=== PATIENT | female | born 1945 | race African-American/Black ===

== ENCOUNTER 2017-04-17 16:09 | Emergency (ER) | payer MEDICARE, MEDICAID ==
[2017-04-17 16:57] LABS: #Basophils 0.1 thou/uL (0.0-0.2); #Eosinphils 0.4 thou/uL (0.0-0.7); #Lymphocytes 2.7 thou/uL (1.20-3.40); #Monocytes 0.6 thou/uL (0.11-0.59); #Neutrophils 2.7 thou/uL (1.40-6.50); %Basophils 1.3 % (0.0-1.0); %Lymphocytes 41.4 % (21.0-51.0); %Monocytes 9.5 % (0.0-10.0); %Neutrophils 41.8 % (42.0-75.0); Hemoglobin 12.2 g/dL (12.0-16.0); Mean Corpuscular HGB CONC 31.7 g/dL (32.0-36.0); Mean Corpuscular Hemoglobin 29.4 pg (27.0-31.0); Mean Corpuscular Volume 92.9 fl (81.0-99.0); Mean Platelet Volume 9.3 fL (7.4-10.4); Platelet Count 198 thou/uL (130-400); Red Blood Cell (RBC) Count 4.13 mill/uL (4.20-5.40); White Blood Cell (WBC) Count 6.5 thou/uL (4.8-10.8)
[2017-04-17 17:11] LABS: ALT (SGPT) 30 U/L (8-55); AST (SGOT) 34 U/L (5-34); Albumin 3.9 g/dL (3.4-4.8); Alkaline Phosphatase 90 U/L (40-150); Anion Gap 17 mmol/L (10-20); BUN (Urea Nitrogen) 12 mg/dL (9.8-20.1); Bilirubin, Total 0.2 mg/dL (0.2-1.2); CK (CPK) 133 U/L (29-168); Calc. Creatinine Clearance 0 mL/min (70-130); Calcium 9.9 mg/dL (7.8-10.44); Carbon Dioxide 23 mmol/L (23-31); Chloride 107 mmol/L (98-107); Estimated GFR-MDRD 54; Glucose 105 mg/dL (83-110); Potassium 4.6 mmol/L (3.5-5.1); Protein, Total 7.9 g/dL (6.0-8.3); Sodium 142 mmol/L (136-145)
[2017-04-17 17:16] LABS: CKMB 0.7 ng/mL (0-6.6); Troponin I 0.027 ng/mL (< 0.028)
--- NOTE | 2017-04-17 17:34 | RAD ---
PORTABLE CHEST 1 VIEW: Date: 04/17/17 Time: 1701 hours HISTORY: Dyspnea, cough. FINDINGS/IMPRESSION: Comparison made with exam of 10/04/16. The heart is enlarged. There is haziness in the left lateral lung base which may be either due to jaron hnical factors or pathology. No pneumothoraces or corey pulmonary edema seen. No right-sided pleural effusions are identified. POS: [facility]
== END 2017-04-17 21:00 | disposition home or self-care (01) ==
LOC: ERS 16:09
DX: J10.1 Influenza due to other identified influenza virus with other respiratory manifestations (principal); E03.9 Hypothyroidism, unspecified; K21.9 Gastro-esophageal reflux disease without esophagitis; I10 Essential (primary) hypertension; J45.909 Unspecified asthma, uncomplicated; E66.9 Obesity, unspecified; F32.9 Major depressive disorder, single episode, unspecified; Z86.73 Personal history of transient ischemic attack (TIA), and cerebral infarction without residual deficits; Z86.718 Personal history of other venous thrombosis and embolism; Z87.891 Personal history of nicotine dependence
CPT/HCPCS: 36415; 71045; 80053; 82553; 83880; 84484; 85025; 87040; 93005; 94640; 94760; J7620

== ENCOUNTER 2017-08-11 14:21 | Emergency (ER) | payer MEDICAID, MEDICARE ==
[2017-08-11 15:18] LABS: Bilirubin Negative (Negative); Blood, Urine Negative (Negative); Clarity CLEAR (Clear); Glucose, Urine (Dipstick) Negative (Negative); Leukocyte Small (Negative); Nitrite Negative (Negative); Protein, Urine (Dipstick) Negative (Neg-Trace); Specific Gravity, Urine 1.017 (1.002-1.036); pH, Urine 6.5 (5.0-9.0)
[2017-08-11 15:20] LABS: Bacteria/HPF None Seen HPF (None Seen); Hyaline Casts/LPF 0-3 HYALINE CAST LPF (0-3 Hyaline); Pathc Cast-AUWi Flag 0.58 (0-2.49); RBC/HPF 0-3 HPF (0-3); Squamous Epithelial 0-3 HPF (0-3); WBC/HPF 0-3 HPF (0-3)
[2017-08-11 15:28] LABS: #Basophils 0.1 thou/uL (0.0-0.2); #Eosinphils 0.5 thou/uL (0.0-0.7); #Lymphocytes 3.9 thou/uL (1.20-3.40); #Monocytes 0.5 thou/uL (0.11-0.59); #Neutrophils 8.6 thou/uL (1.40-6.50); %Basophils 0.5 % (0.0-1.0); %Lymphocytes 28.6 % (21.0-51.0); %Monocytes 3.9 % (0.0-10.0); Hemoglobin 12.2 g/dL (12.0-16.0); Mean Corpuscular HGB CONC 32.5 g/dL (32.0-36.0); Mean Corpuscular Hemoglobin 29.4 pg (27.0-31.0); Mean Corpuscular Volume 90.4 fl (81.0-99.0); Mean Platelet Volume 9.1 fL (7.4-10.4); Platelet Count 223 thou/uL (130-400); RBC Distribution Width 14.6 % (11.5-14.5); Red Blood Cell (RBC) Count 4.15 mill/uL (4.20-5.40); White Blood Cell (WBC) Count 13.7 thou/uL (4.8-10.8)
[2017-08-11 15:51] LABS: ALT (SGPT) 13 U/L (8-55); AST (SGOT) 14 U/L (5-34); Albumin 3.9 g/dL (3.4-4.8); Alkaline Phosphatase 77 U/L (40-150); Anion Gap 10 mmol/L (10-20); BUN (Urea Nitrogen) 18 mg/dL (9.8-20.1); Bilirubin, Total 0.3 mg/dL (0.2-1.2); Calc. Creatinine Clearance 0 mL/min (70-130); Calcium 9.9 mg/dL (7.8-10.44); Carbon Dioxide 24 mmol/L (23-31); Chloride 107 mmol/L (98-107); Estimated GFR-MDRD 63; Globulin 3.9 g/dL (2.4-3.5); Glucose 123 mg/dL (83-110); Lipase 12 U/L (8-78); Protein, Total 7.8 g/dL (6.0-8.3); Sodium 137 mmol/L (136-145)
--- NOTE | 2017-08-11 16:49 | RAD ---
UPRIGHT PORTABLE CHEST ONE VIEW: HISTORY: A 72-year-old female with a history of dysuria, bodyaches, pain with urination, fever, and chills. COMPARISON: 04/17/2017 FINDINGS: Minimal cardiomegaly. Mild bilateral vascular congestion. Persistent probably pleural opacity in th e left lung base region, stable. No new process. IMPRESSION: Persistent abnormal pleural opacity in the left base. Mild bilateral vascular congestion. Minimal c ardiomegaly. Stable appearance from prior study. No new process. POS: [facility]
== END 2017-08-11 17:00 | disposition home or self-care (01) ==
LOC: ERS 14:21
DX: R30.0 Dysuria (principal); R31.9 Hematuria, unspecified; I25.10 Atherosclerotic heart disease of native coronary artery without angina pectoris; E03.9 Hypothyroidism, unspecified; K21.9 Gastro-esophageal reflux disease without esophagitis; I10 Essential (primary) hypertension; J44.9 Chronic obstructive pulmonary disease, unspecified; E66.9 Obesity, unspecified; F32.9 Major depressive disorder, single episode, unspecified; Z87.891 Personal history of nicotine dependence; Z79.02 Long term (current) use of antithrombotics/antiplatelets; Z86.73 Personal history of transient ischemic attack (TIA), and cerebral infarction without residual deficits; Z79.82 Long term (current) use of aspirin; Z79.899 Other long term (current) drug therapy
CPT/HCPCS: 36415; 71045; 80053; 81003; 81015; 83690; 85025

== ENCOUNTER 2018-07-15 14:53 | Observation (INO) | payer MEDICARE, MEDICAID ==
--- NOTE | 2018-07-15 16:33 | RAD ---
Exam: Chest one view HISTORY:Chest pain Comparison: None FINDINGS: Lungs: Added density at the inferior left chest Cardiac silhouette:Enlarged cardiac silhouette Pulmonary vessels: Mild engorgement Pleural Spaces: Obscuration of left lateral costophrenic sulcus Pneumothorax: None Osseous abnormalities: None of acuity. IMPRESSION: Added density at the inferior left chest. This could relate to pericardial fat pad adjace nt enlarged cardiac silhouette, although the possibility of underlying pleural and/or peripheral opac ity is not excluded. Recommend follow-up 2 view chest. CHF.
[2018-07-15 16:39] LABS: #Basophils 0.1 thou/uL (0.0-0.2); #Eosinphils 0.4 thou/uL (0.0-0.7); #Lymphocytes 3.4 thou/uL (1.20-3.40); #Monocytes 0.5 thou/uL (0.11-0.59); #Neutrophils 7.8 thou/uL (1.40-6.50); %Basophils 0.6 % (0.0-1.0); %Eosinophils 3.5 % (0.0-10.0); %Lymphocytes 27.8 % (21.0-51.0); %Monocytes 4.3 % (0.0-10.0); %Neutrophils 63.8 % (42.0-75.0); Hemoglobin 11.8 g/dL (12.0-16.0); Mean Corpuscular HGB CONC 32.2 g/dL (32.0-36.0); Mean Corpuscular Hemoglobin 29.3 pg (27.0-31.0); Mean Corpuscular Volume 90.7 fL (78.0-98.0); Mean Platelet Volume 9.7 fL (7.4-10.4); Platelet Count 228 thou/uL (130-400); RBC Distribution Width 14.9 % (11.5-14.5); Red Blood Cell (RBC) Count 4.05 mill/uL (4.20-5.40); White Blood Cell (WBC) Count 12.3 thou/uL (4.8-10.8)
[2018-07-15 16:59] LABS: ALT (SGPT) 12 U/L (8-55); AST (SGOT) 15 U/L (5-34); Alkaline Phosphatase 75 U/L (40-150); Anion Gap 13 mmol/L (10-20); BUN (Urea Nitrogen) 21 mg/dL (9.8-20.1); Bilirubin, Total 0.3 mg/dL (0.2-1.2); CK (CPK) 69 U/L (29-168); Calc. Creatinine Clearance 0 mL/min (70-130); Calcium 9.7 mg/dL (7.8-10.44); Carbon Dioxide 27 mmol/L (23-31); Chloride 107 mmol/L (98-107); Estimated GFR-MDRD 52; Globulin 3.2 g/dL (2.4-3.5); Glucose 118 mg/dL (83-110); Lipase 32 U/L (8-78); Potassium 4.7 mmol/L (3.5-5.1); Protein, Total 7.2 g/dL (6.0-8.3); Sodium 142 mmol/L (136-145)
[2018-07-15] MEDS ORDERED: Nitroglycerin 2% Ointment 1 INCH/1 GM Packet ONE (19:39)
[2018-07-15] MEDS ORDERED: Aspirin Chewable 81 MG TAB ONE (19:39)
[2018-07-15] MEDS ORDERED: cefTRIAXone\\ROCEPHIN 1 GM VIAL ONE (19:39)
[2018-07-15] MEDS ORDERED: Azithromycin 500 MG VIAL ONE (19:39)
[2018-07-15 20:03] LABS: Troponin I 0.012 ng/mL (< 0.028)
[2018-07-15] MEDS ORDERED: Terazosin HCl 5 MG CAP PO SCH (22:30)
[2018-07-15] MEDS ORDERED: Atorvastatin Calcium 20 MG TAB PO SCH (22:30)
[2018-07-15] MEDS ORDERED: busPIRone HCl 5 MG TAB PO SCH (22:30)
[2018-07-15] MEDS ORDERED: Acetaminophen/Codeine 30-300mg Tablet PO PRN (22:30)
[2018-07-15] MEDS ORDERED: Gabapentin 300 MG CAP PO SCH (22:30)
[2018-07-15] MEDS: Acetaminophen/Codeine 30-300mg Tablet PO PRN (22:30)
[2018-07-15] MEDS ORDERED: Nitroglycerin 0.4 MG TAB 1 EACH SL PRN (22:31)
[2018-07-15] MEDS: ALPRAZolam 0.5 MG TAB PO PRN (22:32)
[2018-07-15 22:44] LABS: Troponin I Less than 0.010 ng/mL (< 0.028)
--- NOTE | 2018-07-16 02:30 | HP ---
CHIEF COMPLAINT ON ADMISSION: Chest pain with possible pneumonia. HISTORY OF PRESENT ILLNESS: The patient is a 73-year-old female who states that 3 days prior to admission, she was exposed to a lot of bad weather, moisture and that is when she began to cough and have a lot of phlegm, congestion, she broke out sweats at that time. She also noticed that she was having some chest pain and will get worse with coughing as well. Over the next several days, this coughing persisted and on the day of admission, her pain had intensified is left-sided. It does not radiate up into her neck or her arms, it is worse with movement and coughing. She is not short winded. There is no nausea or vomiting or diaphoresis associated with that. Due to her multiple risk factors, she is being placed in the hospital for further evaluation. She has had cardiac evaluations in the past, limited mainly to echocardiograms which have shown good ejection fractions. The last was a transthoracic echocardiogram read by Dr. Aguero in 2014 that showed an ejection fraction of 50% to 55% with grade 2/3 diastolic dysfunction, bilateral atrial enlargement with mild MR and TR. She is to be placed in a medical bed in telemetry. We will re-evaluate her chest disease with repeat chest x-rays, repeat echocardiogram, serial cardiac enzymes and depending on her response to treatment, pursue further workup. PAST MEDICAL HISTORY: Significant for hypothyroidism; hypertension; history of DVTs, on anticoagulation; COPD; asthma; coronary artery disease; severe spinal stenosis; prior CVA with history of multiple TIAs; severe osteoarthritis, bilateral knees; gastroesophageal reflux disease; anxiety disorder; hyperlipidemia; HSV; and history of angioedema, on JAVI inhibitors. PAST SURGICAL HISTORY: Includes IVC filter placed via the right groin, bilateral tubal ligation, pelvic sling and mesh placement, carpal tunnel surgery bilaterally, and cholecystectomy. FAMILY HISTORY: Sister has type 2 diabetes. Her siblings all have hypertension. SOCIAL HISTORY: She is a former occasional smoker. Does not drink alcohol or use illicit drugs. She is , with 3 children. ALLERGIES: ALLERGIES ARE TO AMOXICILLIN, BENADRYL, COMPAZINE, PHENERGAN, AND JAVI INHIBITORS. REVIEW OF SYSTEMS: GENERAL: Has malaise, fever, chills, weakness. HEENT: Denies drainage from ears, nose, or throat. CHEST: Has shortness of breath with cough. HEART: Significant for pain in the cardiovascular area, but denies palpitations. GI: Denies nausea, vomiting, or diarrhea. : Denies dysuria, frequency, blood in urine or stool. MUSCULOSKELETAL: Has severe arthritis in both knees and shoulders. SKIN: Shows no new rashes or lesions. NEUROLOGIC: Significant for anxiety, but otherwise no hallucinations or delusions. She is having some paresthesias in the hands as she feels her carpal tunnel is returning. MEDICATIONS: Medications on admission are not available and will have to be reviewed in place from my office records. She does not know her medications, specifically. PHYSICAL EXAMINATION: VITAL SIGNS: At the time of admission, she is over 300 pounds. Temperature 98.5, pulse 83, respirations 23, blood pressure 150/82, O2 saturation 96% on room air with a pain of 8/10. GENERAL: This is a morbidly obese, alert, cooperative female, in no acute distress. HEENT: Normocephalic, atraumatic. Pupils with diminished reactivity to light bilaterally at 2-3 mm. Arcus senilis bilaterally. TMs, nares, pharynx are clear. NECK: Supple. Trachea midline. CHEST: With diminished breath sounds on the far left, but no acute findings. HEART: Regular rate and rhythm. BREASTS: Deferred. ABDOMEN: Obese, unable to appreciate organomegaly. : Deferred. EXTREMITIES: With mild 2 to 3+ edema bilaterally in the lower extremities. Tenderness and heat in both knees. Shoulders with painful and diminished range of motion bilaterally. SKIN: Without acute rashes or lesions. NEUROLOGIC: Cranial nerves are intact. Mental status is nonfocal and at baseline. Unable to test gait and cerebral function at this time. LABORATORY DATA: Lab work thus far shows WBCs at 12.3, hemoglobin 11.8, hematocrit 36.7, platelets at 228, unremarkable diff. Sodium 142, potassium 4.7, chloride 107, CO2 27, BUN 21, creatinine at 1.22 with GFR 51, glucose 118. Total bilirubin 0.3. Liver functions unremarkable. Chest x-ray shows possible effusion or fat pad in the left lower lobe. ASSESSMENT: Chest pain, possible pneumonia, multiple risk factors. PLAN: Plan will be to observe the patient to rule out cardiac problems. Repeat her chest x-ray and continue antibiotics in the interim and serially re-evaluate her. Job ID: [id number]
[2018-07-16 05:18] LABS: Hemoglobin 10.7 g/dL (12.0-16.0)
[2018-07-16 05:26] LABS: Hemoglobin A1c 4.7 % (4.0-6.0)
[2018-07-16] MEDS: Levothyroxine 150 MCG TAB PO SCH (05:59)
[2018-07-16] MEDS: Budesonide 0.5 MG/2 ML NEB INH SCH ×2 (06:25→18:40)
[2018-07-16] MEDS: Aspirin Chewable 81 MG TAB PO SCH (07:39)
[2018-07-16] MEDS: Clopidogrel Bisulfate 75 MG TAB PO SCH (07:39)
[2018-07-16] MEDS: Ezetimibe 10 MG TAB PO SCH (07:39)
[2018-07-16] MEDS: Furosemide 40 MG TAB PO SCH (07:39)
[2018-07-16] MEDS: Acetaminophen/Codeine 30-300mg Tablet PO PRN ×3 (07:40→20:28)
[2018-07-16] MEDS: Gabapentin 300 MG CAP PO SCH ×3 (07:40→20:28)
[2018-07-16] MEDS: busPIRone HCl 5 MG TAB PO SCH ×3 (07:40→20:45)
[2018-07-16] MEDS: Polyethylene Glycol 3350 17 GM Packet PO SCH (07:41)
--- NOTE | 2018-07-16 08:36 | RAD ---
EXAM: Two views chest PROVIDED CLINICAL HISTORY: Pneumonia COMPARISON: 10/04/2016 FINDINGS: Cardiac and mediastinal silhouette appears within normal limits. There is atelectasis versus scarring in the region of the lingula similar to prior study. Calcified granuloma is again seen at the left l becky base. Lungs otherwise remain clear. No pleural fluid or pneumothorax apparent. Degenerative gustafson es are again seen in the spine. IVC filter is partially visualized on the lateral view. IMPRESSION: Stable chest with chronic findings at left lung base. No acute cardiopulmonary process is identified.
[2018-07-16] MEDS ORDERED: Losartan 25 MG TAB PO SCH (09:00)
[2018-07-16] MEDS: ALPRAZolam 0.5 MG TAB PO PRN (09:06)
--- NOTE | 2018-07-16 10:44 | NM ---
EXAM: NM Cardiac Stress W EF WF PROVIDED CLINICAL HISTORY: Chest pain COMPARISON: None FINDINGS: 31 mCi technetium 99m labeled sestamibi IV stress Evaluation is limited by patient body habitus. There is no significant focal area of abnormal radiotr acer accumulation within the left ventricular myocardium to suggest ischemia. Gated dated demonstrate normal myocardial wall motion and thickening with calculated LVEF of 71%. IMPRESSION: No definite scintigraphic evidence for ischemia.
[2018-07-16] MEDS ORDERED: Regadenoson 0.4 MG/5 ML SYRINGE ONE (11:39)
[2018-07-16] MEDS: cefTRIAXone\\ROCEPHIN 1 GM in Sodium Chloride 0.9% 100 ML IVPB SCH (17:32)
[2018-07-16] MEDS: Atorvastatin Calcium 20 MG TAB PO SCH (20:28)
[2018-07-16] MEDS: Terazosin HCl 5 MG CAP PO SCH (20:30)
[2018-07-17] MEDS: Levothyroxine 150 MCG TAB PO SCH (06:00)
[2018-07-17] MEDS: Acetaminophen/Codeine 30-300mg Tablet PO PRN ×2 (08:04→14:30)
[2018-07-17] MEDS: Budesonide 0.5 MG/2 ML NEB INH SCH ×2 (08:13→18:30)
[2018-07-17 09:06] LABS: #Basophils 0.1 thou/uL (0.0-0.2); #Eosinphils 0.4 thou/uL (0.0-0.7); #Lymphocytes 3.8 thou/uL (1.20-3.40); #Monocytes 0.7 thou/uL (0.11-0.59); #Neutrophils 7.2 thou/uL (1.40-6.50); %Basophils 0.5 % (0.0-1.0); %Eosinophils 3.4 % (0.0-10.0); %Lymphocytes 31.2 % (21.0-51.0); %Monocytes 5.6 % (0.0-10.0); %Neutrophils 59.2 % (42.0-75.0); Hemoglobin 11.4 g/dL (12.0-16.0); Mean Corpuscular HGB CONC 31.5 g/dL (32.0-36.0); Mean Corpuscular Hemoglobin 28.5 pg (27.0-31.0); Mean Corpuscular Volume 90.5 fL (78.0-98.0); Mean Platelet Volume 9.4 fL (7.4-10.4); Platelet Count 204 thou/uL (130-400); RBC Distribution Width 14.7 % (11.5-14.5); White Blood Cell (WBC) Count 12.2 thou/uL (4.8-10.8)
[2018-07-17] MEDS: Gabapentin 300 MG CAP PO SCH ×3 (09:12→21:16)
[2018-07-17] MEDS: busPIRone HCl 5 MG TAB PO SCH ×3 (09:12→21:16)
[2018-07-17] MEDS: Losartan 25 MG TAB PO SCH (09:13)
[2018-07-17] MEDS: Clopidogrel Bisulfate 75 MG TAB PO SCH (09:13)
[2018-07-17] MEDS: Furosemide 40 MG TAB PO SCH (09:14)
[2018-07-17] MEDS: Aspirin Chewable 81 MG TAB PO SCH (09:14)
[2018-07-17] MEDS: Ezetimibe 10 MG TAB PO SCH (09:14)
[2018-07-17] MEDS: Polyethylene Glycol 3350 17 GM Packet PO SCH (09:15)
[2018-07-17 09:22] LABS: Anion Gap 14 mmol/L (10-20); BUN (Urea Nitrogen) 20 mg/dL (9.8-20.1); Calc. Creatinine Clearance 109 mL/min (70-130); Calcium 9.5 mg/dL (7.8-10.44); Carbon Dioxide 23 mmol/L (23-31); Chloride 107 mmol/L (98-107); Estimated GFR-MDRD 62; Glucose 94 mg/dL (83-110); Potassium 3.7 mmol/L (3.5-5.1); Sodium 140 mmol/L (136-145)
[2018-07-17] MEDS: cefTRIAXone\\ROCEPHIN 1 GM in Sodium Chloride 0.9% 100 ML IVPB SCH (17:16)
[2018-07-17] MEDS: Terazosin HCl 5 MG CAP PO SCH (21:16)
[2018-07-17] MEDS: Atorvastatin Calcium 20 MG TAB PO SCH (21:16)
[2018-07-18] MEDS: Levothyroxine 150 MCG TAB PO SCH (05:53)
[2018-07-18] MEDS: Budesonide 0.5 MG/2 ML NEB INH SCH (06:18)
[2018-07-18 08:04] VITALS: BP 143/82; TEMP 98.1
[2018-07-18] MEDS: Losartan 25 MG TAB PO SCH (09:58)
[2018-07-18] MEDS: Clopidogrel Bisulfate 75 MG TAB PO SCH (09:59)
[2018-07-18] MEDS: Gabapentin 300 MG CAP PO SCH (09:59)
[2018-07-18] MEDS: Aspirin Chewable 81 MG TAB PO SCH (09:59)
[2018-07-18] MEDS: Ezetimibe 10 MG TAB PO SCH (09:59)
[2018-07-18] MEDS: Acetaminophen/Codeine 30-300mg Tablet PO PRN (10:05)
[2018-07-18] MEDS: Polyethylene Glycol 3350 17 GM Packet PO SCH (10:09)
[2018-07-18] MEDS: Furosemide 40 MG TAB PO SCH (10:09)
[2018-07-18] MEDS: busPIRone HCl 5 MG TAB PO SCH (10:09)
--- NOTE | 2018-07-19 13:54 | EKG ---
Test Reason : Blood Pressure : / mmHG Vent. Rate : 074 BPM Atrial Rate : 074 BPM P-R Int : 164 ms QRS Dur : 084 ms QT Int : 388 ms P-R-T Axes : 029 -08 056 degrees QTc Int : 430 ms Normal sinus rhythm Normal ECG Confirmed by WENDY CONNELL DO ([id number]), publishing editor CORNELL BAUER ([id number]) on 07/19/2018 1:53:54 PM Referred By: Confirmed By:WENDY CONNELL DO
== END 2018-07-18 11:23 | disposition home or self-care (01) ==
LOC: ERS 14:53 → 2SW 21:14
PROVIDERS: ADMIT Specialist; ATTEND Specialist
DX: R07.89 Other chest pain (principal); E03.9 Hypothyroidism, unspecified; I10 Essential (primary) hypertension; J44.9 Chronic obstructive pulmonary disease, unspecified; I25.10 Atherosclerotic heart disease of native coronary artery without angina pectoris; M48.00 Spinal stenosis, site unspecified; M17.0 Bilateral primary osteoarthritis of knee; K21.9 Gastro-esophageal reflux disease without esophagitis; F41.9 Anxiety disorder, unspecified; E78.5 Hyperlipidemia, unspecified; Z86.73 Personal history of transient ischemic attack (TIA), and cerebral infarction without residual deficits; Z86.718 Personal history of other venous thrombosis and embolism; Z87.891 Personal history of nicotine dependence; Z79.02 Long term (current) use of antithrombotics/antiplatelets; Z79.899 Other long term (current) drug therapy; Z88.0 Allergy status to penicillin; Z88.8 Allergy status to other drugs, medicaments and biological substances; Z95.820 Peripheral vascular angioplasty status with implants and grafts; Z98.890 Other specified postprocedural states
CPT/HCPCS: 71045; 71046; 78452; 80048; 80053; 80061; 82550; 83036; 83690; 83880; 84443; 84484 ×2; 85018; 85025 ×2; 87040; 87149 ×2; 87804 ×2; 93005; 93017; 93306; 94640 ×4; 96365; 96366; 96367; 96376; 99285; A9500; G0378 ×3; 36415; J0456; J0696; J1642; J2785; J3490; J7620; J7626

== ENCOUNTER 2018-09-20 13:12 | Inpatient (IN) | payer MEDICARE, MEDICAID ==
--- NOTE | 2018-09-20 13:59 | RAD ---
SINGLE VIEW OF THE CHEST: COMPARISON: 08/11/2017. HISTORY: Sore throat with cough and abdominal pain; fever. FINDINGS: A single view of the chest shows an enlarged but stable cardiomediastinal silhouette. There may be a small left pleural effusion. IMPRESSION: 1. Cardiomegaly. 2. Small left pleural effusion. POS: [facility]
[2018-09-20 15:15] LABS: Bilirubin Negative (Negative); Blood, Urine Negative (Negative); Clarity CLEAR (Clear); Glucose, Urine (Dipstick) Negative (Negative); Leukocyte Negative (Negative); Nitrite Negative (Negative); Protein, Urine (Dipstick) Negative (Neg-Trace); Specific Gravity, Urine 1.013 (1.002-1.036)
[2018-09-20 15:23] LABS: Hemoglobin 11.6 g/dL (12.0-16.0); Mean Corpuscular HGB CONC 33.5 g/dL (32.0-36.0); Mean Corpuscular Hemoglobin 30.2 pg (27.0-31.0); Mean Platelet Volume 9.6 fL (7.4-10.4); Platelet Count 188 thou/uL (130-400); RBC Distribution Width 14.7 % (11.5-14.5); Red Blood Cell (RBC) Count 3.83 mill/uL (4.20-5.40); White Blood Cell (WBC) Count 21.6 thou/uL (4.8-10.8)
[2018-09-20 15:39] LABS: Band 4 % (5-11); Lymphocytes 14 % (21-51); MDiff Complete? YES; Monocytes 6 % (0-10); Neutrophil 76 % (42-75); Platelet Morphology Comment Appears Adequate; RBC Morphology Normal
[2018-09-20 15:44] LABS: ALT (SGPT) 18 U/L (8-55); AST (SGOT) 21 U/L (5-34); Albumin 3.7 g/dL (3.4-4.8); Alkaline Phosphatase 78 U/L (40-150); Anion Gap 15 mmol/L (10-20); BUN (Urea Nitrogen) 14 mg/dL (9.8-20.1); Bilirubin, Total 0.4 mg/dL (0.2-1.2); Calc. Creatinine Clearance 0 mL/min (70-130); Calcium 9.2 mg/dL (7.8-10.44); Carbon Dioxide 23 mmol/L (23-31); Chloride 104 mmol/L (98-107); Estimated GFR-MDRD 64; Globulin 3.1 g/dL (2.4-3.5); Glucose 94 mg/dL (83-110); Potassium 4.5 mmol/L (3.5-5.1); Protein, Total 6.8 g/dL (6.0-8.3); Sodium 137 mmol/L (136-145)
[2018-09-20] MEDS ORDERED: guaiFENesin ER 600 MG TAB PO SCH (21:00)
[2018-09-20] MEDS ORDERED: Benzonatate 100 MG CAP PO PRN (21:09)
[2018-09-20] MEDS ORDERED: Sodium Chloride 0.9% 1,000 ML IV SCH (21:10)
[2018-09-20] MEDS: Acetaminophen 325 MG TAB PO PRN (22:20)
[2018-09-20] MEDS ORDERED: Azithromycin 250 MG TAB PO SCH (23:15)
[2018-09-20] MEDS: cefTRIAXone\\ROCEPHIN 1 GM VIAL IM SCH (23:20)
[2018-09-20] MEDS: Lidocaine 1% (PF) 30 ML VIAL FS SCH (23:27)
[2018-09-21 00:35] VITALS: BMI 56.5
[2018-09-21] MEDS: Acetaminophen 325 MG TAB PO PRN ×3 (02:04→20:44)
[2018-09-21] MEDS: Azithromycin 250 MG TAB PO SCH (07:55)
[2018-09-21] MEDS: Losartan 25 MG TAB PO SCH (10:27)
[2018-09-21] MEDS: NIFEdipine XL 30 MG TAB PO SCH (10:28)
[2018-09-21] MEDS: Aspirin 325 MG TAB PO SCH (10:28)
[2018-09-21] MEDS: Ezetimibe 10 MG TAB PO SCH (10:28)
[2018-09-21] MEDS: Clopidogrel Bisulfate 75 MG TAB PO SCH (10:28)
[2018-09-21] MEDS: Furosemide 40 MG TAB PO SCH (10:29)
[2018-09-21] MEDS: busPIRone HCl 5 MG TAB PO SCH ×3 (10:29→20:43)
[2018-09-21] MEDS: Allopurinol 300 MG TAB PO SCH (10:29)
[2018-09-21] MEDS: Gabapentin 300 MG CAP PO SCH ×3 (10:29→20:44)
--- NOTE | 2018-09-21 15:33 | RAD ---
PA AND LATERAL VIEWS OF THE CHEST: HISTORY: Pneumonia. FINDINGS: Comparison is made with the exam of 07/16/2018. The heart size is stable. The aorta is tortuous. Scarring in the lingula is again noted. No focal areas of consolidation, pneumothorax, corey pulmonary edema, or pleural effusions are seen. There ar e degenerative changes in the spine. IMPRESSION: No acute process. POS: [facility]
[2018-09-21] MEDS: traMADol HCl 50 MG TAB PO PRN (20:44)
[2018-09-21] MEDS: ALPRAZolam 0.5 MG TAB PO SCH (20:45)
[2018-09-21] MEDS: cefTRIAXone\\ROCEPHIN 1 GM VIAL IM SCH (23:11)
[2018-09-21] MEDS: Lidocaine 1% (PF) 30 ML VIAL FS SCH (23:12)
[2018-09-22 05:25] LABS: #Basophils 0.1 thou/uL (0.0-0.2); #Eosinphils 0.6 thou/uL (0.0-0.7); #Lymphocytes 3.2 thou/uL (1.20-3.40); #Monocytes 0.9 thou/uL (0.11-0.59); #Neutrophils 10.3 thou/uL (1.40-6.50); %Basophils 0.4 % (0.0-1.0); %Eosinophils 3.7 % (0.0-10.0); %Lymphocytes 21.2 % (21.0-51.0); %Monocytes 5.9 % (0.0-10.0); %Neutrophils 68.7 % (42.0-75.0); Hemoglobin 10.8 g/dL (12.0-16.0); Mean Corpuscular HGB CONC 30.5 g/dL (32.0-36.0); Mean Corpuscular Hemoglobin 27.7 pg (27.0-31.0); Mean Corpuscular Volume 90.8 fL (78.0-98.0); Mean Platelet Volume 9.3 fL (7.4-10.4); Platelet Count 180 thou/uL (130-400); RBC Distribution Width 14.4 % (11.5-14.5); Red Blood Cell (RBC) Count 3.89 mill/uL (4.20-5.40); White Blood Cell (WBC) Count 14.9 thou/uL (4.8-10.8)
[2018-09-22] MEDS: Levothyroxine 150 MCG TAB PO SCH (05:27)
[2018-09-22] MEDS: traMADol HCl 50 MG TAB PO PRN ×2 (05:27→17:08)
[2018-09-22] MEDS: Acetaminophen 325 MG TAB PO PRN ×2 (05:27→20:02)
[2018-09-22 05:36] LABS: Anion Gap 12 mmol/L (10-20); BUN (Urea Nitrogen) 10 mg/dL (9.8-20.1); Calc. Creatinine Clearance 131 mL/min (70-130); Calcium 9.7 mg/dL (7.8-10.44); Carbon Dioxide 26 mmol/L (23-31); Cardiac Risk 2.1 (Less than 4.5); Chloride 106 mmol/L (98-107); Cholesterol 139 mg/dl (< 200 Desired); Estimated GFR-MDRD 71; Glucose 109 mg/dL (83-110); HDL Cholesterol 67 mg/dL (>60 Neg Risk); LDL Cholesterol, Calculated 62 mg/dL; Potassium 3.4 mmol/L (3.5-5.1); Sodium 141 mmol/L (136-145); Triglycerides 49 mg/dL (Less than 150); Uric Acid 3.4 mg/dL (2.6-6.0)
[2018-09-22] MEDS: busPIRone HCl 5 MG TAB PO SCH ×4 (08:03→20:02)
[2018-09-22] MEDS: Allopurinol 300 MG TAB PO SCH (08:03)
[2018-09-22] MEDS: NIFEdipine XL 30 MG TAB PO SCH (08:03)
[2018-09-22] MEDS: Aspirin 325 MG TAB PO SCH (08:03)
[2018-09-22] MEDS: Losartan 25 MG TAB PO SCH (08:03)
[2018-09-22] MEDS: Clopidogrel Bisulfate 75 MG TAB PO SCH (08:04)
[2018-09-22] MEDS: Furosemide 40 MG TAB PO SCH (08:04)
[2018-09-22] MEDS: Ezetimibe 10 MG TAB PO SCH (08:04)
[2018-09-22] MEDS: Azithromycin 250 MG TAB PO SCH (08:04)
[2018-09-22] MEDS: Gabapentin 300 MG CAP PO SCH ×4 (08:04→20:02)
--- NOTE | 2018-09-22 08:13 | HP ---
CHIEF COMPLAINT ON ADMISSION: Left lower lobe pneumonia. HISTORY OF PRESENT ILLNESS: The patient is a 73-year-old female, who came in originally into the emergency room for a sore throat and not feeling well. During her workup, her left lower lobe effusion was noted with a white count of 21,000 and a left shift also noted. The patient had multiple attempts at establishing IV access, which met with blowing as soon as they were used, requiring the patient to resort to IM medication on a regular daily basis. PAST MEDICAL HISTORY: Previous hospitalization was on 07/15/2018 for chest pain. This was ruled out completely. She also has hypothyroidism; hypertension; history of DVTs, on anticoagulation; COPD; asthma; coronary artery disease; severe spinal stenosis; CVA with multiple TIAs; severe osteoarthritis; bilateral knee osteoarthritis; gastroesophageal reflux disease; anxiety disorder; hyperlipidemia; herpes simplex virus; angioedema, on JAVI inhibitors; and overactive bladder. PAST SURGICAL HISTORY: Includes IVC filter placed through the right groin, bilateral tubal ligations, pelvic sling and mesh placement, carpal tunnel surgery bilaterally, and cholecystectomy. FAMILY HISTORY: Significant for a sister with type 2 diabetes and her siblings all have hypertension including her son. SOCIAL HISTORY: She is a former occasional smoker. Does not drink alcohol or use illicit drugs. She is , with 3 children. ALLERGIES: TO AMOXICILLIN, BENADRYL, COMPAZINE, PHENERGAN, AND JAVI INHIBITORS. MEDICATIONS: At the time of admission include; 1. Losartan 50 mg p.o. daily. 2. Allopurinol 300 mg p.o. daily. 3. Simvastatin 40 mg at bedtime. 4. Lasix 40 mg q.a.m. 5. Potassium chloride 20 mEq daily. 6. Nifedipine 30 mg daily. 7. Zetia 10 mg at bedtime. 8. Myrbetriq 50 mg daily. 9. She also takes aspirin 325 daily. 10. Levothyroxine 150 mcg daily. 11. Buspirone 5 mg t.i.d. 12. Plavix 75 mg daily. 13. Nexium 40 mg daily. 14. Gabapentin 300 mg t.i.d. 15. For allergies, she will take Zyrtec p.r.n. REVIEW OF SYSTEMS: GENERAL/CONSTITUTIONAL: Denies fever, chills, aches, or pains. She has had a sore throat. HEENT: Complains of pain in her pharynx. No discharge from eyes, ears, nose, or throat. CHEST: Denies shortness of breath or coughing. CARDIOVASCULAR: Denies palpitations or chest pain. GASTROINTESTINAL: Denies nausea, vomiting, or diarrhea. GENITOURINARY: Denies dysuria, blood in urine or stool. MUSCULOSKELETAL: Has chronic pain in her large joints, especially both knees. SKIN: No new rashes or lesions. NEUROLOGIC: She is anxious, but denies any new areas of hypesthesia or anesthesia. PHYSICAL EXAMINATION: VITAL SIGNS: At the time of admission, blood pressure 136/84, pulse 90, respirations 18, temperature 99.9, pain scale 10/10, and O2 saturation 94% on room air. GENERAL: At that 10/10 description, she was lying comfortably in bed without any acute distress. HEENT: Normocephalic, atraumatic. Pupils are equal, round, and reactive to light. Extraocular muscles are intact. Arcus senilis bilaterally. TMs and nares are clear. Pharynx is somewhat dry with mild erythema posteriorly (strep test negative). NECK: Supple. CHEST: With faint rales in left lower lobe. HEART: Regular rate and rhythm. BREASTS: Deferred. ABDOMEN: Soft. Unable to appreciate organomegaly due to obesity. GENITOURINARY: Deferred. EXTREMITIES: Without clubbing or cyanosis. There is 1+ edema bilaterally. Range of motion is diminished due to arthritis. SKIN: No acute lesions. NEUROLOGIC: Cranial nerves are intact. Mental status is clear. Unable to test gait and cerebellar function at this time, but mental status is at baseline. LABORATORY DATA: Her lab work on admission showed WBCs 21.6, hemoglobin 11.6, and hematocrit 34.5 with platelets at 188,000. Sodium 137, potassium 4.5, chloride 104, CO2 of 23, BUN 14, creatinine 0.2 with a GFR of 64, glucose 94, lactic acid 1.6, and calcium 9.2. Liver functions normal. Troponins negative. Urinalysis is clear. IMAGING DATA: Chest x-ray, as mentioned previously, has slight infiltrate in left lower lobe, possible pleural effusion. ASSESSMENT: 1. Probable left lower lobe pneumonia. 2. Hypertension. 3. Chronic pain. 4. Extreme obesity. PLAN: 1. Plan will be to continue IM daily medications of antibiotics. 2. Repeat chest x-ray PA and lateral. 3. Continue neb treatments and serially re-evaluate the patient. Job ID: [id number]
[2018-09-22] MEDS: ALPRAZolam 0.5 MG TAB PO SCH (20:02)
[2018-09-22] MEDS: cefTRIAXone\\ROCEPHIN 1 GM VIAL IM SCH (23:01)
[2018-09-22] MEDS: Lidocaine 1% (PF) 30 ML VIAL FS SCH (23:01)
[2018-09-23] MEDS: Levothyroxine 150 MCG TAB PO SCH (05:00)
[2018-09-23 05:07] LABS: #Basophils 0.1 thou/uL (0.0-0.2); #Eosinphils 0.8 thou/uL (0.0-0.7); #Lymphocytes 3.3 thou/uL (1.20-3.40); #Monocytes 0.8 thou/uL (0.11-0.59); #Neutrophils 7.6 thou/uL (1.40-6.50); %Basophils 0.5 % (0.0-1.0); %Eosinophils 6.1 % (0.0-10.0); %Lymphocytes 26.1 % (21.0-51.0); %Monocytes 6.6 % (0.0-10.0); %Neutrophils 60.8 % (42.0-75.0); Hemoglobin 10.7 g/dL (12.0-16.0); Mean Corpuscular HGB CONC 30.5 g/dL (32.0-36.0); Mean Corpuscular Hemoglobin 27.7 pg (27.0-31.0); Mean Platelet Volume 9.1 fL (7.4-10.4); Platelet Count 192 thou/uL (130-400); RBC Distribution Width 14.4 % (11.5-14.5); Red Blood Cell (RBC) Count 3.86 mill/uL (4.20-5.40); White Blood Cell (WBC) Count 12.5 thou/uL (4.8-10.8)
[2018-09-23] MEDS: Allopurinol 300 MG TAB PO SCH (08:39)
[2018-09-23] MEDS: Clopidogrel Bisulfate 75 MG TAB PO SCH (08:39)
[2018-09-23] MEDS: Azithromycin 250 MG TAB PO SCH (08:39)
[2018-09-23] MEDS: NIFEdipine XL 30 MG TAB PO SCH (08:40)
[2018-09-23] MEDS: Ezetimibe 10 MG TAB PO SCH (08:40)
[2018-09-23] MEDS: Furosemide 40 MG TAB PO SCH (08:41)
[2018-09-23] MEDS: Losartan 25 MG TAB PO SCH (08:41)
[2018-09-23] MEDS: Aspirin 325 MG TAB PO SCH (08:41)
[2018-09-23] MEDS: Gabapentin 300 MG CAP PO SCH (08:41)
[2018-09-23] MEDS: busPIRone HCl 5 MG TAB PO SCH (08:41)
[2018-09-23] MEDS: traMADol HCl 50 MG TAB PO PRN (08:46)
[2018-09-23] MEDS: cefTRIAXone\\ROCEPHIN 1 GM VIAL IM SCH (10:11)
[2018-09-23 10:29] VITALS: BP 161/87; TEMP 97.7
--- NOTE | 2018-09-24 07:36 | PQF ---
[employer] Crystal Reports Winform ViewerANGELA THOMAS MICHAEL E MD [id number] CLINICAL DOCUMENTATION CLARIFICATION FORM: POST DISCHARGE Addendum to original discharge summary date: ____ Late entry note date: __ DATE: 09/24/2018 ATTN: DALIA DONALDSON Please exercise your independent, professional judgment in responding to the clarification form. Clinical indicators are provided on the bottom of this form for your review Please check appropriate box(s) to clarify if the following diagnosis has been ruled in or ruled out: Sepsis [ ] Ruled in diagnosis [ ] Continue to treat [ ] Resolved [ ] Ruled out diagnosis [ x] Cannot rule out diagnosis [ x ] Other diagnosis __LLL Pneumonia [ ] Unable to determine For continuity of documentation, please document condition throughout progress notes and discharge summary. Thank You. CLINICAL INDICATORS - SIGNS / SYMPTOMS / LABS Sepsis, Pneumonia, leukocytosis-ED record-pg09/20 Probable left lower lobe pneumonia-H&P, pg3. 09/21 WBC: 21.6-H&P, pg3. 09/21 Temp: 99.9-H&P, pg3. 09/21 RISK FACTORS Left lobe pneumonia-H&P, pg3. 09/21 TREATMENTS Ceftriaxone.IM-09/20 (This form is maintained as a part of the permanent medical record) 2014 [employer]. All Rights Reserved [employer] Winform Viewer Shana Douglas [ not provided] [not provided] MTDD
--- NOTE | 2018-09-27 09:55 | EKG ---
Test Reason : WEAKNESS Blood Pressure : / mmHG Vent. Rate : 079 BPM Atrial Rate : 079 BPM P-R Int : 166 ms QRS Dur : 092 ms QT Int : 390 ms P-R-T Axes : 069 097 076 degrees QTc Int : 447 ms Sinus rhythm with occasional Premature ventricular complexes Rightward axis Borderline ECG Confirmed by LUISITO MONTEIRO, PRITI ([id number]), editorial cartoonist CORNELL BAUER ([id number]) on 09/27/2018 9:54:59 AM Referred By: Confirmed By:PRITI JORGE MD
== END 2018-09-23 11:23 | disposition home health service (06) | DRG 194 ==
LOC: ERS 13:12 → T4-A 20:44
PROVIDERS: ADMIT Specialist; ATTEND Specialist
DX: J18.1 Lobar pneumonia, unspecified organism (principal); J44.0 Chronic obstructive pulmonary disease with (acute) lower respiratory infection; I25.10 Atherosclerotic heart disease of native coronary artery without angina pectoris; E03.9 Hypothyroidism, unspecified; K21.9 Gastro-esophageal reflux disease without esophagitis; I10 Essential (primary) hypertension; M17.0 Bilateral primary osteoarthritis of knee; F41.9 Anxiety disorder, unspecified; N32.81 Overactive bladder; E66.8 Other obesity; G89.29 Other chronic pain; E78.5 Hyperlipidemia, unspecified; Z86.718 Personal history of other venous thrombosis and embolism; Z86.73 Personal history of transient ischemic attack (TIA), and cerebral infarction without residual deficits; Z90.49 Acquired absence of other specified parts of digestive tract; Z98.51 Tubal ligation status; Z87.891 Personal history of nicotine dependence; Z88.1 Allergy status to other antibiotic agents; Z88.8 Allergy status to other drugs, medicaments and biological substances; Z79.01 Long term (current) use of anticoagulants
CPT/HCPCS: 36415; 51701; 71045; 71046; 80048; 80053; 80061; 81003; 83605; 84443; 84484; 84550; 85025; 87040; 87081; 87149; 87430; 93005; 94640; J0696; J3370; J7620

== ENCOUNTER 2018-12-08 19:11 | Emergency (ER) | payer MEDICARE, MEDICAID ==
[2018-12-08] MEDS ORDERED: Ondansetron ODT 4 MG TAB ONE (21:06)
[2018-12-08] MEDS ORDERED: Morphine 4 MG/ML VIAL ONE (21:06)
[2018-12-08] MEDS ORDERED: Dexamethasone 10 MG/ML VIAL ONE (21:10)
== END 2018-12-08 21:27 | disposition home or self-care (01) ==
LOC: ERS 19:11
DX: K14.1 Geographic tongue (principal); G89.29 Other chronic pain; M25.561 Pain in right knee; M25.562 Pain in left knee; I25.10 Atherosclerotic heart disease of native coronary artery without angina pectoris; E03.9 Hypothyroidism, unspecified; K21.9 Gastro-esophageal reflux disease without esophagitis; I10 Essential (primary) hypertension; J44.9 Chronic obstructive pulmonary disease, unspecified; Z86.718 Personal history of other venous thrombosis and embolism; F32.9 Major depressive disorder, single episode, unspecified; Z87.891 Personal history of nicotine dependence; Z79.82 Long term (current) use of aspirin; Z79.899 Other long term (current) drug therapy; Z86.73 Personal history of transient ischemic attack (TIA), and cerebral infarction without residual deficits
CPT/HCPCS: 96372; 99283; J1100; J2270; Q0162

== ENCOUNTER 2019-02-12 13:57 | Outpatient (CLI) | payer MEDICARE, MEDICAID ==
--- NOTE | 2019-02-12 15:10 | ULT ---
Exam: Bilateral renal ultrasound HISTORY: Renal cyst COMPARISON: 08/24/2009 FINDINGS: Limited evaluation due to bowel gas and body habitus Right kidney: Normal cortical echotexture. No hydronephrosis. Right kidney measurements: 12.1 x 5.7 x 4 point cm. Left kidney: Not appreciated due to bowel gas. Left kidney measurements: not applicable Urinary bladder: Suboptimal visualization due to bowel gas. IMPRESSION: Markedly suboptimal exam.
== END 2019-02-12 13:58 | disposition home or self-care (01) ==
LOC: BICULT 13:57
PROVIDERS: ATTEND Urology
DX: N28.1 Cyst of kidney, acquired (principal)
CPT/HCPCS: 76770

== ENCOUNTER 2020-04-27 05:35 | Inpatient (IN) | payer MEDICARE, MEDICAID ==
[2020-04-27] MEDS ORDERED: Furosemide 40 MG/4 ML VIAL ONE (05:50)
[2020-04-27 06:04] LABS: #Lymphocytes 2.7 thou/uL (1.20-3.40); #Monocytes 0.5 thou/uL (0.11-0.59); #Neutrophils 7.4 thou/uL (1.40-6.50); %Basophils 0.4 % (0.0-1.0); %Eosinophils 0.1 % (0.0-10.0); %Lymphocytes 25.4 % (21.0-51.0); %Neutrophils 69.1 % (42.0-75.0); Hemoglobin 12.9 g/dL (12.0-16.0); Mean Corpuscular HGB CONC 31.5 g/dL (32.0-36.0); Mean Corpuscular Volume 88.8 fL (78.0-98.0); Mean Platelet Volume 10.3 fL (7.4-10.4); Platelet Count 175 thou/uL (130-400); RBC Distribution Width 14.9 % (11.5-14.5); Red Blood Cell (RBC) Count 4.61 mill/uL (4.20-5.40); White Blood Cell (WBC) Count 10.7 thou/uL (4.8-10.8)
[2020-04-27 06:25] LABS: ALT (SGPT) 18 U/L (8-55); AST (SGOT) 46 U/L (5-34); Albumin 3.4 g/dL (3.4-4.8); Alkaline Phosphatase 81 U/L (40-110); Anion Gap 18 mmol/L (10-20); BUN (Urea Nitrogen) 32 mg/dL (9.8-20.1); Bilirubin, Total 0.4 mg/dL (0.2-1.2); Calc. Creatinine Clearance 0 mL/min (70-130); Calcium 8.9 mg/dL (7.8-10.44); Carbon Dioxide 21 mmol/L (23-31); Chloride 105 mmol/L (98-107); Globulin 4.4 g/dL (2.4-3.5); Glucose 123 mg/dL (83-110); Potassium 4.5 mmol/L (3.5-5.1); Protein, Total 7.8 g/dL (6.0-8.3); Sodium 139 mmol/L (136-145)
[2020-04-27] MEDS ORDERED: Aspirin 325 MG TAB ONE (06:46)
[2020-04-27 06:47] LABS: CKMB 0.7 ng/mL (0-6.6)
[2020-04-27 07:12] LABS: Bacteria/HPF 2+ HPF (None Seen); Bilirubin Negative (Negative); Blood, Urine 2+ (Negative); Clarity Turbid (Clear); Glucose, Urine (Dipstick) Normal (Negative); Ketone, Urine Negative (Negative); Leukocyte Negative Leu/uL (Negative); Nitrite Negative (Negative); Protein, Urine (Dipstick) Greater than 600 mg/dL (Neg-Trace); RBC/HPF 0-3 HPF (0-3); Specific Gravity, Urine 1.036 (1.002-1.036)
[2020-04-27 07:26] LABS: SARS-CoV-2 NAA Rapid Test DETECTED (NotDetected)
--- NOTE | 2020-04-27 07:36 | CT ---
CT chest noncontrast HISTORY: Fever. Dyspnea. FINDINGS: Patchy areas of groundglass infiltrate are present within each lung, more pronounced centra lly on the right and peripherally on the left. No lobar consolidation. Coronary vasculature not particularly engorged. Heart upper limits of normal in size. No pleural fluid or pneumothorax. Calcified granulomata are consistent with healed granulomatous dise ase. Lack of contrast limits evaluation of the soft tissues. No mediastinal adenopathy is evident. Degenerative changes of the shoulders and thoracic spine. IMPRESSION : Bilateral groundglass infiltrates. Inflammation favored over edema. While the distribution is not com pletely typical, COVID pneumonitis is likely.
[2020-04-27] MEDS ORDERED: methylPREDNISolone Sod Succ/PF 125 MG/2 ML VIAL ONE (07:38)
--- NOTE | 2020-04-27 07:51 | RAD ---
Exam: Chest one view HISTORY:Difficulty breathing. Comparison: 09/20/2018 FINDINGS: Cardiac silhouette:Cardiomegaly Aorta: Unremarkable Pulmonary vessels: Normal Costophrenic angles: Clear LUNGS: Scattered interstitial and alveolar opacities. Pneumothorax: None Osseous abnormalities: None IMPRESSION: Interstitial and alveolar opacities. Correlate for pulmonary edema versus pneumonia.
[2020-04-27 09:21] LABS: Lactic Acid 0.9 mmol/L (0.5-2.2)
[2020-04-27 09:30] LABS: Troponin I 0.041 ng/mL (< 0.028)
[2020-04-27] MEDS ORDERED: Succinylcholine 200 MG/10 ml SYRINGE FS ONE ×2 (09:58→12:25)
[2020-04-27] MEDS ORDERED: PROPOFOL 200 MG/20 ML VIAL ONE ×2 (09:58→12:25)
[2020-04-27] MEDS ORDERED: Rocuronium Bromide 10 MG/ML (10ML VIAL) ONE (12:25)
[2020-04-27 12:35] LABS: Troponin I 0.049 ng/mL (< 0.028)
[2020-04-27] MEDS ORDERED: Lorazepam 2 MG/ML VIAL ONE (12:41)
[2020-04-27] MEDS: Lorazepam 2 MG/ML VIAL SLOW IVP PRN ×3 (12:54→20:43)
[2020-04-27] MEDS ORDERED: cefTRIAXone\\ROCEPHIN 2 GM VIAL ONE (13:05)
[2020-04-27] MEDS: cefTRIAXone\\ROCEPHIN 2 GM in Sodium Chloride 0.9% 100 ML IVPB SCH (13:12)
[2020-04-27] MEDS ORDERED: Azithromycin 500 MG VIAL ONE (13:56)
[2020-04-27] MEDS: Azithromycin 500 MG in Sodium Chloride 0.9% 250 ML 250 ML IVPB SCH (14:06)
[2020-04-27] MEDS ORDERED: CeleCOXIB 100 MG CAP PO PRN (18:14)
[2020-04-27] MEDS ORDERED: HYDROcodone/Acetaminophen 10/325 mg Tablet PO PRN (18:15)
[2020-04-27] MEDS ORDERED: Methocarbamol 500 MG TAB PO PRN (18:16)
--- NOTE | 2020-04-27 19:42 | RAD ---
PORTABLE CHEST: 04/27/20 HISTORY: COVID pneumonia follow-up. COMPARISON: Earlier exam of the same day. Patient is rotated on this exam. The heart size is enlarged. Bilateral lung infiltrates are similar t o the previous exam. No definite interval change. IMPRESSION: Stable exam. POS: [facility]
[2020-04-27] MEDS: Atorvastatin Calcium 20 MG TAB PO SCH (21:28)
[2020-04-27] MEDS: NIFEdipine XL 30 MG TAB PO SCH (21:28)
[2020-04-27] MEDS: busPIRone HCl 5 MG TAB PO SCH (21:28)
[2020-04-27] MEDS: Zinc Sulfate 220 MG CAP PO SCH (21:28)
[2020-04-27] MEDS ORDERED: Sterile Water 10 ML VIAL FS PRN (21:30)
[2020-04-27] MEDS ORDERED: Ziprasidone 20 MG VIAL IM SCH (21:30)
[2020-04-27] MEDS ORDERED: Ziprasidone 20 MG VIAL IM PRN (22:30)
--- NOTE | 2020-04-27 23:49 | HP ---
CHIEF COMPLAINT: COVID pneumonia. HISTORY OF PRESENT ILLNESS: The patient is a 75-year-old female. Patient states that she began to notice shortness of breath yesterday and began to feel bad. She started to run fever. She called the EMS when she could not catch her breath. When they arrived, O2 saturation was at 88%. They gave her breathing treatment. She has also had productive green mucus with coughing. In the emergency room, she was found to be COVID positive and struggling to breathe. She was put on BiPAP and her sat then raised into the 90s. Dr. Murillo was contacted for admission. PAST MEDICAL HISTORY: Ms. Clark has multiple medical problems that put her at high risk including extreme morbid obesity, coronary artery disease, hypothyroidism, GERD, hypertension, diffuse osteoarthritis. She has had TIAs in the past, COPD, and asthma. She has had DVTs. Hyperuricemia, anxiety, overactive bladder, herpes simplex, angioedema due to JAVI inhibitors. She has had a history of severe spinal stenosis, inoperable due to inability to obtain CT and MRI because of habitus. PAST SURGICAL HISTORY: Includes bilateral carpal tunnel surgery, tubal ligation, cholecystectomy, pelvic sling surgery involving mesh, and placement of IVC filter. PAST PSYCHIATRIC HISTORY: Includes depression. SOCIAL HISTORY: She has a history of smoking in the distant past. She denies any alcohol use. She lives at home with her family. FAMILY HISTORY: Significant for hypertension and diabetes. ALLERGIES: SHE IS ALLERGIC TO PENICILLIN, BENADRYL, COMPAZINE, PROMETHAZINE, AND JAVI INHIBITORS. MEDICATIONS ON ADMISSION: Include 1. Levothyroxine 150 mcg daily. 2. Gabapentin 300 mg as needed. 3. Nexium 40 mg daily. 4. Potassium chloride 20 mEq daily. 5. Zocor 40 mg at bedtime. 6. Plavix 75 mg daily. 7. Aspirin 325 mg daily. 8. Furosemide 40 mg daily. 9. Procardia 30 mg p.o. b.i.d. 10. Buspirone 5 mg t.i.d. 11. Robaxin 750 mg t.i.d. p.r.n. muscle spasms. 12. Zetia 10 mg p.o. daily. 13. Allopurinol 300 mg daily. 14. Celecoxib 200 mg b.i.d. REVIEW OF SYSTEMS: CONSTITUTIONAL: She feels weak, short of breath even with just talking, and admits to fever. HEENT: Significant for green postnasal drip and productive phlegm. CHEST: Significant for dyspnea and cough. CARDIOVASCULAR: Denies palpitations or chest pain. GI: Denies nausea, vomiting, or diarrhea. : Denies dysuria or blood in urine or stool. MUSCULOSKELETAL: Significant for severe arthritis in both knees, but no new findings. SKIN: No new rashes or lesions. NEUROLOGICAL: Denies headaches or trouble with mentation. She is very fearful. PHYSICAL EXAMINATION: VITAL SIGNS: At the time of admission vital signs, 182/104 blood pressure, pulse 92, respirations 32, O2 saturation 100% on BiPAP. GENERAL: This is a morbidly obese female, alert, oriented, cooperative. HEENT: Normocephalic, atraumatic. Pupils are equal, round, and reactive to light. Arcus senilis bilaterally. TMs, nares, and pharynx are clear. Sclerae are clear and nonicteric. NECK: Supple. CHEST: With diffuse crackles bilaterally. HEART: Regular rate and rhythm. Tachycardic. ABDOMEN: Obese. Unable to appreciate organomegaly. EXTREMITIES: With 2+ edema bilaterally, this is chronic with feet and both knees. SKIN: No new rashes or lesions. NEUROLOGIC: Cranial nerves are intact. Mental status is anxious and fearful. Sensory exam is grossly intact. The cerebellar function and gait are untested at this time. LABORATORY DATA AND IMAGING STUDIES: Lab work on admission shows WBCs 10.7, hemoglobin 12.9, hematocrit 41.0, with platelets at 175. Her D-dimer is elevated at 1.79. Sodium is 139, potassium 4.5, chloride 105, CO2 of 21, BUN 32, creatinine 2.14, glucose 123, lactic acid 0.9. Liver functions unremarkable. Troponins slightly elevated at 0.56. BNP at 14.2. Urinalysis shows 600 protein, 2+ blood, with 7 to 10 wbc's, and she is COVID positive. Chest CT shows bilateral ground-glass infiltrates, fairly consistent with COVID pneumonitis. No pulmonary emboli noted. ASSESSMENT: 1. COVID pneumonia. 2. Hypertension. 3. Chronic severe osteoarthritis. 4. Extreme morbid obesity. 5. Generalized Anxiety Disorder with Panic Attacks 6. Dementia with Sundowning - early stages PLAN: Admit the patient for BiPAP therapy. We will also begin remdesivir and supportive therapy. We will also obtain consultation from Pulmonary and Infectious Disease. Face time with patient 45 min with total time 1 hour. Job ID: [id number] [email or web address]
[2020-04-28] MEDS: Lorazepam 2 MG/ML VIAL SLOW IVP PRN ×3 (04:03→09:37)
[2020-04-28 05:16] LABS: Anion Gap 18 mmol/L (10-20); BUN (Urea Nitrogen) 42 mg/dL (9.8-20.1); Calc. Creatinine Clearance 49 mL/min (70-130); Calcium 8.9 mg/dL (7.8-10.44); Carbon Dioxide 18 mmol/L (23-31); Chloride 107 mmol/L (98-107); Glucose 149 mg/dL (83-110); Sodium 139 mmol/L (136-145)
[2020-04-28] MEDS: Levothyroxine 150 MCG TAB PO SCH (05:17)
[2020-04-28 07:02] LABS: #Lymphocytes 1.4 thou/uL (1.20-3.40); #Monocytes 0.8 thou/uL (0.11-0.59); #Neutrophils 8.8 thou/uL (1.40-6.50); %Eosinophils 0.2 % (0.0-10.0); %Lymphocytes 12.9 % (21.0-51.0); %Monocytes 6.9 % (0.0-10.0); Hemoglobin 11.8 g/dL (12.0-16.0); Mean Corpuscular HGB CONC 30.6 g/dL (32.0-36.0); Mean Corpuscular Hemoglobin 26.9 pg (27.0-31.0); Mean Corpuscular Volume 87.9 fL (78.0-98.0); Mean Platelet Volume 10.6 fL (7.4-10.4); Platelet Count 185 thou/uL (130-400); Platelet Morphology Comment Appears Adequate; RBC Distribution Width 14.7 % (11.5-14.5)
[2020-04-28] MEDS ORDERED: Dextrose 50% Abboject 50 ML SYRINGE IVP PRN (09:00)
[2020-04-28] MEDS ORDERED: Dextrose 5% in Water 1,000 ML IV PRN (09:00)
[2020-04-28] MEDS ORDERED: cloNIDine 0.3mg/24 Hour PATCH TD SCH (09:00)
[2020-04-28] MEDS: Allopurinol 300 MG TAB PO SCH (09:21)
[2020-04-28] MEDS: Aspirin 325 MG TAB PO SCH (09:22)
[2020-04-28] MEDS: Furosemide 40 MG TAB PO SCH (09:23)
[2020-04-28] MEDS: busPIRone HCl 5 MG TAB PO SCH ×3 (09:23→20:17)
[2020-04-28] MEDS: Ezetimibe 10 MG TAB PO SCH (09:23)
[2020-04-28] MEDS: Clopidogrel Bisulfate 75 MG TAB PO SCH (09:23)
[2020-04-28] MEDS: Potassium Chloride 20 MEQ TAB PO SCH (09:24)
[2020-04-28] MEDS: Multivitamin W/ Minerals 1 TAB PO SCH (09:24)
[2020-04-28] MEDS: NIFEdipine XL 30 MG TAB PO SCH (09:24)
[2020-04-28] MEDS: Dexamethasone 4 mg/ml Vial SLOW IVP SCH (09:37)
[2020-04-28] MEDS: Dextrose 5 %-0.45 % NaCl 1,000 ML IV SCH ×2 (09:38→20:19)
[2020-04-28] MEDS ORDERED: Vecuronium 10 MG VIAL IVP PRN ×2 (13:10→13:27)
[2020-04-28] MEDS ORDERED: Electrolyte Replacement Protocol 1 EACH FS ONE (13:10)
[2020-04-28] MEDS ORDERED: Ventilator Sedation Protocol 1 EACH FS SCH (13:15)
[2020-04-28] MEDS ORDERED: niCARdipine 40MG In NaCl 40 MG/200 ML BAG IVPB SCH (13:15)
[2020-04-28] MEDS: Propofol 1,000 MG/100 ML VIAL IV PRN ×3 (13:20→20:45)
[2020-04-28] MEDS ORDERED: Propofol BOLUS 1,000 MG/100 ML VIAL IV PRN (13:45)
[2020-04-28] MEDS ORDERED: Morphine 2 MG/ML VIAL SLOW IVP PRN (13:45)
[2020-04-28] MEDS ORDERED: Fentanyl BOLUS 250 ML IVPB PRN (13:45)
[2020-04-28] MEDS ORDERED: Electrolyte Replacement Protocol FS PRN (13:45)
[2020-04-28] MEDS ORDERED: DISCONTINUE PREVIOUS NARCOTIC PAIN MEDICATIONS AND BENZODIAZEPINES FS SCH (13:45)
--- NOTE | 2020-04-28 13:53 | CON ---
DATE OF CONSULTATION: 04/28/2020 CONSULTING PHYSICIAN: Tereso Murillo MD REASON FOR CONSULTATION: Acute respiratory failure related to COVID-19 pneumonia. HISTORY OF PRESENT ILLNESS: The patient is a 75-year-old female, with morbid obesity, who has been admitted to the hospital with hypoxemia from COVID-19 pneumonia. She is on BiPAP, but she is breathing about 55 times a minute, taking off her equipment and is almost impossible to keep calm. PAST MEDICAL HISTORY: 1. Morbid obesity. 2. Coronary artery disease. 3. Hypothyroidism. 4. Gastroesophageal reflux. 5. Hypertension. 6. Osteoarthritis. 7. Stroke. 8. COPD. 9. Asthma. 10. DVT. 11. Hyperuricemia. 12. Herpes simplex. 13. Angioedema. 14. Spinal stenosis. PAST SURGICAL HISTORY: 1. Carpal tunnel release. 2. Tubal ligation. 3. Cholecystectomy. 4. Pelvic sling surgery. 5. IVC filter placement. SOCIAL HISTORY: Quit smoking many years ago. Does not consume alcohol. Apparently lives at home with her family. FAMILY MEDICAL HISTORY: Remarkable for hypertension and diabetes. ALLERGIES: PENICILLIN, BENADRYL, COMPAZINE, PROMETHAZINE, AND JAVI INHIBITORS. MEDICATIONS: Prior to admission; 1. Levothyroxine. 2. Gabapentin. 3. Nexium. 4. Potassium chloride. 5. Zocor. 6. Plavix. 7. Aspirin. 8. Furosemide. 9. Procardia. 10. Buspirone. 11. Robaxin. 12. Zetia. 13. Allopurinol. 14. Celebrex. REVIEW OF SYSTEMS: Twelve-point review of systems difficult to obtain due to her agitation. PHYSICAL EXAMINATION: VITAL SIGNS: Blood pressure is running 200/100, temperature 98.8, pulse 104, and respirations 40 to 50. She is on BiPAP of 35% oxygen. HEENT: Unremarkable. NECK: No JVD. LUNGS: Inspiratory crackles bilaterally. CARDIOVASCULAR: S1 and S2. Regular. Tachycardic. ABDOMEN: Morbidly obese, soft, and nontender. EXTREMITIES: No edema. IMAGING DATA: Her chest x-ray demonstrates cardiomegaly with diffuse bilateral infiltrates. LABORATORY DATA: COVID test was positive. White blood cell count 11, hematocrit 38.7, and platelet count 185. D-dimer 2.99. Sodium 139, potassium 4, chloride 107, CO2 of 18, BUN 42, creatinine 2.2, and glucose 149. BNP level is 14.2. ASSESSMENT: 1. COVID-19 pneumonia. 2. Acute hypoxic respiratory failure, requiring mechanical ventilation. 3. Morbid obesity. PLAN: This patient needs to be intubated and sedated. I see no other way out of the situation. with the COVID, there is a strong likelihood that she will not improve given her age and comorbidities. She is on anticoagulation and steroids. We will follow. Job ID: [id number]
[2020-04-28] MEDS ORDERED: niCARdipine 50 MG in Sodium Chloride 0.9% 250 ML 230 ML IVPB SCH (14:00)
[2020-04-28 14:26] LABS: Actual Bicarbonate (HCO3a) 18.3 mEq/L (22-28); Base Excess (BEa) -6.1 mEq/L (-2.0 to +3.0); CO2 Tension 32.6 mmHg (35.0-45.0); Calcium, Ionized (arterial) 1.16 mmol/L (1.12-1.30); Carboxyhemoglobin (COHb) 0.9 gm% (0.0-3.0); Hemoglobin (Hb) 12.7 g/dL (12.0-16.0); Potassium - ABG Lab 4.06 mmol/L (3.70-5.30); pH, Arterial 7.37 (7.35-7.45)
[2020-04-28 14:27] LABS: Puncture Site RRA
--- NOTE | 2020-04-28 14:29 | RAD ---
Chest AP view INDICATION: Intubation COMPARISON: Prior exam dated April 27, 2020 FINDINGS: Lungs: Bilateral airspace disease, left greater than right is stable Cardiac silhouette: Cardiomegaly persists Pulmonary vasculature: Normal Pleural spaces: Left-sided pleural effusion and tiny right pleural effusion persists. Note definite pneumothorax is evident. Upper abdomen: No abnormality seen. Osseous structures: No acute osseous abnormality. Additional findings: The individual right IJ central venous catheter is in place with the tip of the cavoatrial junction. The patient is intubated with the ET tube tip at the thoracic inlet. There is a gastric catheter in place projects below the left hemidiaphragm and beyond the [id number]. IMPRESSION: Interval intubation, right IJ central venous catheter placement and gastric catheter placement. Stable bilateral pleural-parenchymal opacities consistent with bilateral pneumonia and small bilatera l pleural effusions.
[2020-04-28] MEDS ORDERED: Rocuronium Bromide 50 MG/5 ML VIAL IVP SCH (14:30)
[2020-04-28] MEDS ORDERED: Succinylcholine 200 MG/10 ml SYRINGE FS SCH (14:30)
[2020-04-28] MEDS: cefTRIAXone\\ROCEPHIN 2 GM in Sodium Chloride 0.9% 100 ML IVPB SCH (15:51)
[2020-04-28] MEDS: Fentanyl CADD 100 ML IV SCH (16:10)
[2020-04-28] MEDS: Azithromycin 500 MG in Sodium Chloride 0.9% 250 ML 250 ML IVPB SCH (16:19)
[2020-04-28] MEDS: Insulin Regular 300 UNITS/3 ML VIAL SC PRN ×2 (18:40→23:40)
[2020-04-28] MEDS: Enoxaparin Sodium 60 MG/0.6 ML SYRINGE SC SCH (20:17)
[2020-04-28] MEDS: Atorvastatin Calcium 20 MG TAB PO SCH (20:17)
[2020-04-28] MEDS: Zinc Sulfate 220 MG CAP PO SCH (20:17)
[2020-04-29] MEDS: Propofol 1,000 MG/100 ML VIAL IV PRN ×4 (00:09→22:24)
[2020-04-29 04:01] LABS: #Lymphocytes 1.5 thou/uL (1.20-3.40); #Monocytes 0.7 thou/uL (0.11-0.59); %Basophils 0.1 % (0.0-1.0); %Eosinophils 0.1 % (0.0-10.0); %Lymphocytes 15.1 % (21.0-51.0); %Monocytes 6.6 % (0.0-10.0); %Neutrophils 78.1 % (42.0-75.0); Hemoglobin 10.7 g/dL (12.0-16.0); Mean Corpuscular HGB CONC 33.3 g/dL (32.0-36.0); Mean Corpuscular Volume 87.3 fL (78.0-98.0); Mean Platelet Volume 10.1 fL (7.4-10.4); Platelet Count 199 thou/uL (130-400); RBC Distribution Width 14.6 % (11.5-14.5); Red Blood Cell (RBC) Count 3.68 mill/uL (4.20-5.40); White Blood Cell (WBC) Count 10.2 thou/uL (4.8-10.8)
[2020-04-29 04:14] LABS: Anion Gap 16 mmol/L (10-20); BUN (Urea Nitrogen) 49 mg/dL (9.8-20.1); Calc. Creatinine Clearance 52 mL/min (70-130); Calcium 8.3 mg/dL (7.8-10.44); Carbon Dioxide 19 mmol/L (23-31); Chloride 108 mmol/L (98-107); Glucose 164 mg/dL (83-110); Potassium 3.9 mmol/L (3.5-5.1); Sodium 139 mmol/L (136-145)
[2020-04-29] MEDS: Dextrose 5 %-0.45 % NaCl 1,000 ML IV SCH ×2 (05:36→17:38)
[2020-04-29] MEDS: Levothyroxine 150 MCG TAB PO SCH (05:38)
[2020-04-29 07:22] LABS: Hemoglobin 11.7 g/dL (12.0-16.0); Platelet Count 191 thou/uL (130-400)
--- NOTE | 2020-04-29 08:13 | RAD ---
Portable frontal chest radiograph: 04/29/2020 COMPARISON: 04/28/2020 HISTORY: Pneumonia FINDINGS: The patient is rotated to the left. There is a stable right vascular catheter, endotracheal tube, nasogastric tube. There is dense opacit y in the left perihilar region in the left lung base suggesting consolidation/collapse and possible associated left pleural fluid, not significantly changed. There is hazy groundglass opacity noted in the right lung with a perihilar and bibasilar predominance. IMPRESSION: Stable appearance of the chest as detailed above.
[2020-04-29] MEDS: Furosemide 40 MG TAB PO SCH (08:22)
[2020-04-29] MEDS: Ezetimibe 10 MG TAB PO SCH (08:22)
[2020-04-29] MEDS: Clopidogrel Bisulfate 75 MG TAB PO SCH (08:23)
[2020-04-29] MEDS: Aspirin 325 MG TAB PO SCH (08:23)
[2020-04-29] MEDS: Potassium Chloride 20 MEQ TAB PO SCH (08:23)
[2020-04-29] MEDS: Multivitamin W/ Minerals 1 TAB PO SCH (08:24)
[2020-04-29] MEDS: busPIRone HCl 5 MG TAB PO SCH ×3 (08:24→21:03)
[2020-04-29] MEDS: Allopurinol 300 MG TAB PO SCH (08:24)
[2020-04-29] MEDS: Dexamethasone 4 mg/ml Vial SLOW IVP SCH (08:24)
[2020-04-29] MEDS: Enoxaparin Sodium 60 MG/0.6 ML SYRINGE SC SCH ×2 (08:24→21:04)
[2020-04-29] MEDS ORDERED: Fentanyl CADD 100 ML ONE ×2 (09:49→23:10)
[2020-04-29] MEDS: cefTRIAXone\\ROCEPHIN 2 GM in Sodium Chloride 0.9% 100 ML IVPB SCH (12:35)
[2020-04-29] MEDS: Azithromycin 500 MG in Sodium Chloride 0.9% 250 ML 250 ML IVPB SCH (14:36)
[2020-04-29] MEDS: Lorazepam 2 MG/ML VIAL SLOW IVP PRN (17:07)
--- NOTE | 2020-04-29 17:39 | PRG ---
DATE OF SERVICE: 04/29/2020 SUBJECTIVE: The patient was evaluated today. She is covered up with a warming blanket. Her chest x-ray is unchanged compared to yesterday. OBJECTIVE: LUNGS: She has equal breath sounds. HEART: Regular rhythm. ABDOMEN: Soft. LABORATORY DATA: Hemoglobin is 11.7. Sodium 139, potassium 3.9, chloride 108, bicarb 19, BUN 49, creatinine 2.04, down from 2.16. IMPRESSION: 1. COVID pneumonia, on BiPAP, eventually intubated. 2. Significant obesity. 3. History of coronary artery disease. 4. Hypertension. 5. History of COPD and asthma. 6. History of angioedema. 7. History of spinal stenosis. 8. Inferior vena cava filter in place. 9. Former tobacco use. PLAN: Continue supportive care. As with all of these patients, this will be a slow recovery with her multiple morbidities and obesity probably slower than the average COVID patient. Job ID: [id number]
[2020-04-29] MEDS: Atorvastatin Calcium 20 MG TAB PO SCH (21:03)
[2020-04-29] MEDS: Zinc Sulfate 220 MG CAP PO SCH (21:03)
[2020-04-29] MEDS: Fentanyl CADD 100 ML IV SCH (23:15)
[2020-04-30] MEDS: Insulin Regular 300 UNITS/3 ML VIAL SC PRN ×2 (00:23→23:35)
[2020-04-30] MEDS: Dextrose 5 %-0.45 % NaCl 1,000 ML IV SCH ×2 (00:34→14:49)
[2020-04-30] MEDS: Propofol 1,000 MG/100 ML VIAL IV PRN ×6 (01:39→23:28)
[2020-04-30] MEDS: Levothyroxine 150 MCG TAB PO SCH (05:17)
[2020-04-30] MEDS: busPIRone HCl 5 MG TAB PO SCH ×3 (08:26→21:30)
[2020-04-30] MEDS: Furosemide 40 MG TAB PO SCH (08:26)
[2020-04-30] MEDS: Ezetimibe 10 MG TAB PO SCH (08:26)
[2020-04-30] MEDS: Potassium Chloride 20 MEQ TAB PO SCH (08:26)
[2020-04-30] MEDS: Multivitamin W/ Minerals 1 TAB PO SCH (08:26)
[2020-04-30] MEDS: Aspirin 325 MG TAB PO SCH (08:26)
[2020-04-30] MEDS: Dexamethasone 4 mg/ml Vial SLOW IVP SCH (08:27)
[2020-04-30] MEDS: Allopurinol 300 MG TAB PO SCH (08:27)
--- NOTE | 2020-04-30 08:27 | RAD ---
Portable frontal chest radiograph: 04/30/2020 COMPARISON: 04/29/2020 HISTORY: Pneumonia FINDINGS: The patient is rotated to the left. Stable right vascular catheter, endotracheal tube, and nasogastric tube. Stable dense opacity in the left perihilar region and left lung base. Stable right basilar airspace disease. IMPRESSION: No significant interval change.
[2020-04-30] MEDS: Enoxaparin Sodium 60 MG/0.6 ML SYRINGE SC SCH (09:17)
[2020-04-30] MEDS: Clopidogrel Bisulfate 75 MG TAB PO SCH (09:17)
[2020-04-30] MEDS ORDERED: Fentanyl CADD 100 ML ONE (12:27)
[2020-04-30] MEDS: cefTRIAXone\\ROCEPHIN 2 GM in Sodium Chloride 0.9% 100 ML IVPB SCH (12:34)
[2020-04-30] MEDS: Azithromycin 500 MG in Sodium Chloride 0.9% 250 ML 250 ML IVPB SCH (16:10)
--- NOTE | 2020-04-30 17:31 | PRG ---
DATE OF SERVICE: 04/30/2020 OBJECTIVE: VITAL SIGNS: Heart rate in the 40s, blood pressure 158/72, FiO2 is at 45%. She is afebrile. Intake and output, positive 1696. LUNGS: Remarkable for equal breath sounds. HEART: Regular rhythm. ABDOMEN: Soft. EXTREMITIES: Without edema. LABORATORY DATA: White count yesterday was 10.2, hemoglobin today is 11.7. Sodium 139, potassium 3.9, chloride 108, bicarb 19, BUN 49, creatinine 2.04, creatinine was 2.14 on admission. IMPRESSION: 1. COVID pneumonia. 2. Morbid obesity. 3. Hypertension. 4. History of chronic obstructive pulmonary disease. 5. History of asthma. 6. History of an inferior vena cava filter. PLAN: Her chest radiographs are unchanged. She has not made much progress. We will continue supportive care. Job ID: [id number]
[2020-04-30] MEDS: Atorvastatin Calcium 20 MG TAB PO SCH (21:30)
[2020-04-30] MEDS: Zinc Sulfate 220 MG CAP PO SCH (21:30)
[2020-05-01] MEDS ORDERED: Fentanyl CADD 100 ML ONE ×2 (01:14→14:53)
[2020-05-01] MEDS: Fentanyl CADD 100 ML IV SCH ×2 (01:20→14:56)
[2020-05-01] MEDS: Enoxaparin Sodium 60 MG/0.6 ML SYRINGE SC SCH ×3 (01:58→20:47)
[2020-05-01] MEDS: Propofol 1,000 MG/100 ML VIAL IV PRN ×7 (01:58→23:52)
[2020-05-01] MEDS: Dextrose 5 %-0.45 % NaCl 1,000 ML IV SCH ×3 (01:59→18:01)
[2020-05-01] MEDS: Levothyroxine 150 MCG TAB PO SCH (05:19)
[2020-05-01] MEDS: Multivitamin W/ Minerals 1 TAB PO SCH (07:53)
[2020-05-01] MEDS: Allopurinol 300 MG TAB PO SCH (07:53)
[2020-05-01] MEDS: Potassium Chloride 20 MEQ TAB PO SCH (07:53)
[2020-05-01] MEDS: Aspirin 325 MG TAB PO SCH (07:53)
[2020-05-01] MEDS: Furosemide 40 MG TAB PO SCH (07:53)
[2020-05-01] MEDS: busPIRone HCl 5 MG TAB PO SCH ×3 (07:54→20:47)
[2020-05-01] MEDS: Clopidogrel Bisulfate 75 MG TAB PO SCH (07:54)
[2020-05-01] MEDS: Ezetimibe 10 MG TAB PO SCH (07:54)
[2020-05-01] MEDS: Dexamethasone 4 mg/ml Vial SLOW IVP SCH (07:54)
[2020-05-01] MEDS: Levothyroxine 100 MCG SDV SLOW IVP SCH (08:10)
--- NOTE | 2020-05-01 09:28 | RAD ---
PORTABLE CHEST 05/01/2020 PROVIDED CLINICAL HISTORY: Pneumonia. COMPARISON: 04/30/2020 FINDINGS: Evaluation is limited by patient body habitus. Differences in patient positioning also limit direct c omparison. Given these limitations, significant interval change with respect to the prior study is no t apparent. IMPRESSION: As above. POS: PAWAN
[2020-05-01] MEDS: cloNIDine 0.1mg/24 Hour PATCH TD SCH (11:19)
[2020-05-01] MEDS: cefTRIAXone\\ROCEPHIN 2 GM in Sodium Chloride 0.9% 100 ML IVPB SCH (12:16)
[2020-05-01] MEDS: Insulin Regular 300 UNITS/3 ML VIAL SC PRN ×2 (13:00→17:04)
[2020-05-01] MEDS: Azithromycin 500 MG in Sodium Chloride 0.9% 250 ML 250 ML IVPB SCH (15:23)
--- NOTE | 2020-05-01 15:49 | PRG ---
DATE OF SERVICE: 05/01/2020 OBJECTIVE: VITAL SIGNS: Ms. Landers heart rate remains in the 40s, blood pressure 148/73, respiratory rates in the 20s, FiO2 is 45%. LUNGS: Remarkable for coarse equal breath sounds. HEART: Regular rhythm. ABDOMEN: Soft. LABORATORY DATA: There is no new lab. IMPRESSION: COVID pneumonia with respiratory failure. We will order daily lab on her since we are not drawing daily blood gases. She remains stable for now. Job ID: [id number]
[2020-05-01] MEDS: Zinc Sulfate 220 MG CAP PO SCH (20:47)
[2020-05-01] MEDS: Atorvastatin Calcium 20 MG TAB PO SCH (20:47)
[2020-05-02] MEDS: Dextrose 5 %-0.45 % NaCl 1,000 ML IV SCH ×2 (03:01→13:22)
[2020-05-02] MEDS: Propofol 1,000 MG/100 ML VIAL IV PRN ×5 (03:11→19:06)
[2020-05-02 04:38] LABS: Band 1 % (5-11); Eosinophils 1 % (0-10); Hemoglobin 9.8 g/dL (12.0-16.0); Lymphocytes 33 % (21-51); MDiff Complete? YES; Mean Corpuscular HGB CONC 32.5 g/dL (32.0-36.0); Mean Corpuscular Volume 86.1 fL (78.0-98.0); Metamyelocyte 2 % (0-0); Monocytes 10 % (0-10); Myelocyte 2 % (0-0); Neutrophil 51 % (42-75); Platelet Count 275 thou/uL (130-400); Platelet Morphology Comment Appears Adequate; RBC Distribution Width 14.7 % (11.5-14.5); Red Blood Cell (RBC) Count 3.51 mill/uL (4.20-5.40)
[2020-05-02] MEDS ORDERED: Fentanyl CADD 100 ML ONE ×2 (04:38→16:39)
[2020-05-02] MEDS: Fentanyl CADD 100 ML IV SCH ×2 (04:42→16:40)
[2020-05-02 04:45] LABS: Anion Gap 14 mmol/L (10-20); BUN (Urea Nitrogen) 49 mg/dL (9.8-20.1); Calc. Creatinine Clearance 69 mL/min (70-130); Calcium 7.6 mg/dL (7.8-10.44); Carbon Dioxide 19 mmol/L (23-31); Chloride 108 mmol/L (98-107); Glucose 130 mg/dL (83-110); Potassium 3.4 mmol/L (3.5-5.1); Sodium 138 mmol/L (136-145)
[2020-05-02] MEDS ORDERED: Potassium Chloride 20 MEQ TAB PO SCH (06:45)
[2020-05-02] MEDS: Ezetimibe 10 MG TAB PO SCH (07:34)
[2020-05-02] MEDS: Dexamethasone 4 mg/ml Vial SLOW IVP SCH (07:34)
[2020-05-02] MEDS: Aspirin 325 MG TAB PO SCH (07:35)
[2020-05-02] MEDS: Acetaminophen 325 MG TAB PO PRN (07:35)
[2020-05-02] MEDS: Clopidogrel Bisulfate 75 MG TAB PO SCH (07:36)
[2020-05-02] MEDS: Potassium Chloride 20 MEQ TAB PO SCH (07:36)
[2020-05-02] MEDS: busPIRone HCl 5 MG TAB PO SCH ×3 (07:36→21:45)
[2020-05-02] MEDS: Multivitamin W/ Minerals 1 TAB PO SCH (07:36)
[2020-05-02] MEDS: Furosemide 40 MG TAB PO SCH (07:36)
[2020-05-02] MEDS: Allopurinol 300 MG TAB PO SCH (07:37)
[2020-05-02] MEDS: Enoxaparin Sodium 60 MG/0.6 ML SYRINGE SC SCH ×2 (07:37→21:45)
[2020-05-02] MEDS: Levothyroxine 100 MCG SDV SLOW IVP SCH (07:41)
--- NOTE | 2020-05-02 09:25 | RAD ---
PORTABLE CHEST: HISTORY: Respiratory distress. COMPARISON: Prior day's exam. FINDINGS: Exam quality is degraded by body habitus. Heart size is enlarged. Endotracheal tube is in place. N G tube appears to be below the hemidiaphragm. Right central line unchanged. No definite changes in the parenchymal lung changes. IMPRESSION: Stable exam. POS: LYNNE
--- NOTE | 2020-05-02 09:40 | PRG ---
DATE OF SERVICE: 05/02/2020 35 minutes of critical care time. SUBJECTIVE: The patient remains intubated on mechanical ventilation. There have been no acute changes overnight. OBJECTIVE: VITAL SIGNS: Her temperature is 97.1, pulse 54, blood pressure 142/63, O2 saturation 96% to 99%. 24-hour intake 4233, output 2145, weight 348 pounds. HEENT: Unremarkable. NECK: No adenopathy or JVD. LUNGS: Poor air movement. CARDIOVASCULAR: S1 and S2. Slightly bradycardic. ABDOMEN: Obese, soft, nontender. EXTREMITIES: Edematous. LABORATORY DATA: Sodium 138, potassium 3.4, chloride 108, CO2 19, BUN 49, creatinine 1.7, glucose 130. C-reactive protein is 4.1. White blood cell count 13, hematocrit 30, and platelet count 275. Her x-ray shows diffuse bilateral infiltrates. ASSESSMENT: 1. COVID-19 pneumonia. 2. Acute hypoxic respiratory failure, requiring mechanical ventilation. 3. Massive obesity. PLAN: I have weaned her FiO2 down to 40% and also increased her pressure support to help her spontaneous tidal volumes. Fortunately, her gas exchange is good, but I think she will be on mechanical ventilation for quite sometime. She was started on azithromycin and ceftriaxone on 04/27. I would stop those on 05/04. She was given extra potassium this morning. It is also noted that she is on daily Lasix therapy. She continues on corticosteroids and anticoagulation. Her prognosis is very guarded. Job ID: [id number]
[2020-05-02] MEDS: cefTRIAXone\\ROCEPHIN 2 GM in Sodium Chloride 0.9% 100 ML IVPB SCH (13:22)
[2020-05-02] MEDS: Azithromycin 500 MG in Sodium Chloride 0.9% 250 ML 250 ML IVPB SCH (13:23)
[2020-05-02] MEDS: Atorvastatin Calcium 20 MG TAB PO SCH (21:45)
[2020-05-02] MEDS: Zinc Sulfate 220 MG CAP PO SCH (21:45)
[2020-05-03] MEDS: Propofol 1,000 MG/100 ML VIAL IV PRN ×6 (00:25→20:04)
[2020-05-03] MEDS: Dextrose 5 %-0.45 % NaCl 1,000 ML IV SCH ×3 (00:28→14:14)
[2020-05-03 03:44] LABS: Band 5 % (5-11); Hemoglobin 9.8 g/dL (12.0-16.0); Hypochromia SLIGHT = 6-15 cells (100X) (0-5/hpf); Lymphocytes 29 % (21-51); MDiff Complete? YES; Mean Corpuscular HGB CONC 33.8 g/dL (32.0-36.0); Mean Corpuscular Hemoglobin 29.3 pg (27.0-31.0); Mean Corpuscular Volume 86.7 fL (78.0-98.0); Mean Platelet Volume 9.7 fL (7.4-10.4); Metamyelocyte 2 % (0-0); Monocytes 12 % (0-10); Neutrophil 52 % (42-75); Platelet Count 285 thou/uL (130-400); Platelet Morphology Comment Appears Adequate; RBC Distribution Width 14.8 % (11.5-14.5); Red Blood Cell (RBC) Count 3.33 mill/uL (4.20-5.40); White Blood Cell (WBC) Count 14.7 thou/uL (4.8-10.8)
[2020-05-03 03:45] LABS: Anion Gap 15 mmol/L (10-20); BUN (Urea Nitrogen) 44 mg/dL (9.8-20.1); Calc. Creatinine Clearance 88 mL/min (70-130); Calcium 7.8 mg/dL (7.8-10.44); Carbon Dioxide 17 mmol/L (23-31); Chloride 108 mmol/L (98-107); Glucose 129 mg/dL (83-110); Potassium 3.4 mmol/L (3.5-5.1); Sodium 137 mmol/L (136-145)
[2020-05-03] MEDS: Fentanyl CADD 100 ML IV SCH ×2 (05:56→21:41)
[2020-05-03] MEDS ORDERED: Potassium Chloride 20 MEQ TAB PO SCH (06:45)
--- NOTE | 2020-05-03 08:04 | RAD ---
EXAM: Portable chest PROVIDED CLINICAL HISTORY: Respiratory insufficiency COMPARISON: 05/02/2020 FINDINGS: Significant interval change with respect to the prior examination is not apparent. IMPRESSION: As above.
[2020-05-03] MEDS ORDERED: DOPamine 400 MG/D5W 250 ML 250 ML IVPB SCH (08:15)
--- NOTE | 2020-05-03 08:18 | PRG ---
DATE OF SERVICE: 05/03/2020 This is 35 minutes of critical time. SUBJECTIVE: The patient remains intubated on mechanical ventilation. The main issue has been the development of bradycardia. PHYSICAL EXAMINATION: VITAL SIGNS: Her temperature is 98, pulse 30s to 40s, blood pressure 160/87, O2 saturation 100%. 24-hour intake 4126, output 2650. HEENT: Unremarkable. NECK: No adenopathy or JVD. LUNGS: Fairly clear anteriorly. CARDIAC: S1 and S2. Regular. ABDOMEN: Soft. EXTREMITIES: No edema. IMAGING DATA: Her chest x-ray continues to show bilateral infiltrates. Her current ventilator settings are bilevel rate 24, FiO2 40%, high PEEP 23, low PEEP 8, O2 saturation running around 100%. Laboratory data sodium 137, potassium 3.4, chloride 108, CO2 17, BUN 44, creatinine 1.3, and glucose 129. White blood cell count 14.7, hematocrit 28.9, and platelet count 285. ASSESSMENT: 1. COVID-19 pneumonia. 2. Acute hypoxic respiratory failure requiring mechanical ventilation. 3. Diabetes mellitus. 4. Hypokalemia. 5. Development of bradycardia. PLAN: 1. I have added some low-dose dopamine to see if we can increase her heart rate. 2. Fortunately, her oxygenation is improving, but I do not think she is ready to wean from mechanical ventilation yet. 3. Continuing steroids, anticoagulation. Job ID: [id number]
[2020-05-03] MEDS: Clopidogrel Bisulfate 75 MG TAB PO SCH (08:28)
[2020-05-03] MEDS: busPIRone HCl 5 MG TAB PO SCH ×3 (08:28→20:04)
[2020-05-03] MEDS: Ezetimibe 10 MG TAB PO SCH (08:28)
[2020-05-03] MEDS: Enoxaparin Sodium 60 MG/0.6 ML SYRINGE SC SCH ×2 (08:28→20:04)
[2020-05-03] MEDS: Levothyroxine 100 MCG SDV SLOW IVP SCH (08:28)
[2020-05-03] MEDS: Aspirin 325 MG TAB PO SCH (08:28)
[2020-05-03] MEDS: Allopurinol 300 MG TAB PO SCH (08:28)
[2020-05-03] MEDS: Multivitamin W/ Minerals 1 TAB PO SCH (08:28)
[2020-05-03] MEDS: Furosemide 40 MG TAB PO SCH (08:28)
[2020-05-03] MEDS: Dexamethasone 4 mg/ml Vial SLOW IVP SCH (08:29)
[2020-05-03] MEDS: Pantoprazole 40 MG GRANULES PACKET PO SCH (08:29)
[2020-05-03] MEDS: Potassium Chloride 20 MEQ TAB PO SCH (08:29)
[2020-05-03] MEDS: cefTRIAXone\\ROCEPHIN 2 GM in Sodium Chloride 0.9% 100 ML IVPB SCH (13:00)
[2020-05-03] MEDS: Azithromycin 500 MG in Sodium Chloride 0.9% 250 ML 250 ML IVPB SCH (13:01)
[2020-05-03] MEDS: Gabapentin 300 MG CAP PO PRN ×2 (14:14→21:37)
[2020-05-03] MEDS: Acetaminophen 325 MG TAB PO PRN (14:15)
[2020-05-03] MEDS: Lorazepam 2 MG/ML VIAL SLOW IVP PRN (16:10)
[2020-05-03] MEDS: Zinc Sulfate 220 MG CAP PO SCH (20:04)
[2020-05-03] MEDS: Atorvastatin Calcium 20 MG TAB PO SCH (20:04)
[2020-05-03] MEDS: hydrALAZINE 20 MG/ML VIAL SLOW IVP PRN (20:38)
[2020-05-03] MEDS ORDERED: Fentanyl CADD 100 ML ONE (20:52)
[2020-05-04] MEDS: Propofol 1,000 MG/100 ML VIAL IV PRN ×6 (02:46→23:59)
[2020-05-04 04:47] LABS: Band 1 % (5-11); Eosinophils 1 % (0-10); Hemoglobin 9.3 g/dL (12.0-16.0); Lymphocytes 14 % (21-51); MDiff Complete? YES; Mean Corpuscular HGB CONC 31.7 g/dL (32.0-36.0); Mean Corpuscular Hemoglobin 27.5 pg (27.0-31.0); Mean Corpuscular Volume 86.8 fL (78.0-98.0); Mean Platelet Volume 10.1 fL (7.4-10.4); Metamyelocyte 2 % (0-0); Monocytes 8 % (0-10); Neutrophil 74 % (42-75); Platelet Count 318 thou/uL (130-400); Platelet Morphology Comment Appears Adequate; RBC Distribution Width 15.1 % (11.5-14.5); Red Blood Cell (RBC) Count 3.39 mill/uL (4.20-5.40); White Blood Cell (WBC) Count 15.1 thou/uL (4.8-10.8)
[2020-05-04] MEDS: Dextrose 5 %-0.45 % NaCl 1,000 ML IV SCH (05:31)
[2020-05-04] MEDS: hydrALAZINE 20 MG/ML VIAL SLOW IVP PRN (06:47)
[2020-05-04] MEDS: Enoxaparin Sodium 60 MG/0.6 ML SYRINGE SC SCH ×2 (08:45→19:58)
[2020-05-04] MEDS: Dexamethasone 4 mg/ml Vial SLOW IVP SCH (08:46)
[2020-05-04] MEDS: Aspirin 325 MG TAB PO SCH (08:46)
[2020-05-04] MEDS: Allopurinol 300 MG TAB PO SCH (08:46)
[2020-05-04] MEDS: Potassium Chloride 20 MEQ TAB PO SCH (08:46)
[2020-05-04] MEDS: Ezetimibe 10 MG TAB PO SCH (08:46)
[2020-05-04] MEDS: Clopidogrel Bisulfate 75 MG TAB PO SCH (08:46)
[2020-05-04] MEDS: Pantoprazole 40 MG GRANULES PACKET PO SCH (08:46)
[2020-05-04] MEDS: Multivitamin W/ Minerals 1 TAB PO SCH (08:47)
[2020-05-04] MEDS: Furosemide 40 MG TAB PO SCH (08:47)
[2020-05-04] MEDS: busPIRone HCl 5 MG TAB PO SCH ×3 (08:47→19:58)
[2020-05-04] MEDS: Levothyroxine 100 MCG SDV SLOW IVP SCH (09:01)
--- NOTE | 2020-05-04 09:02 | RAD ---
CHEST 1 VIEW: INDICATION: History of pneumonia. COMPARISON: Prior exam dated 05/03/2020. IMPRESSION: ET tube, gastric catheter, and right IJ central venous catheter unchanged. Bilateral airspace diseas e persists. No pneumothorax. POS: BH
[2020-05-04] MEDS ORDERED: Amlodipine 10 MG TAB PER TUBE SCH (09:45)
--- NOTE | 2020-05-04 09:57 | PRG ---
DATE OF SERVICE: 05/04/2020 This is 35 minutes critical care time. SUBJECTIVE: Ms. Clark is actually doing better today. She is awake. She is able to follow some commands. OBJECTIVE: VITAL SIGNS: Temperature 99.5, pulse 65, blood pressure 144/75, O2 saturation 97%. 24-hour intake 4665, output 3950. HEENT: Unremarkable. NECK: No JVD. LUNGS: Fairly clear anteriorly. CARDIAC: S1 and S2, regular. ABDOMEN: Soft, obese, nontender. EXTREMITIES: Trace edema throughout. DIAGNOSTIC DATA: Chest x-ray demonstrates bilateral pulmonary infiltrates, which are largely unchanged. LABORATORY DATA: White blood cell count 15, hematocrit 29.4, and platelet count 318. No chemistry was done today. ASSESSMENT: 1. COVID-19 pneumonia. 2. Acute hypoxic respiratory failure requiring mechanical ventilation. 3. Transient bradycardia that seems to have largely resolved after brief part of dopamine use yesterday. PLAN: 1. I have switched her over to SIMV mode, decreased her PEEP and pressure support. Right now, she is only requiring 30% FiO2. 2. I think she would probably benefit with going ahead and stopping the IV fluids, but continue with the diuretics. 3. Continue steroids. 4. Hopefully, wean to extubate over the next day or two. Job ID: [id number]
[2020-05-04] MEDS: Insulin Regular 300 UNITS/3 ML VIAL SC PRN ×2 (10:45→14:19)
[2020-05-04] MEDS: Lorazepam 2 MG/ML VIAL SLOW IVP PRN (11:09)
[2020-05-04] MEDS: Gabapentin 300 MG CAP PO PRN (11:12)
[2020-05-04] MEDS: cefTRIAXone\\ROCEPHIN 2 GM in Sodium Chloride 0.9% 100 ML IVPB SCH (13:23)
[2020-05-04] MEDS: Azithromycin 500 MG in Sodium Chloride 0.9% 250 ML 250 ML IVPB SCH (15:41)
[2020-05-04] MEDS ORDERED: Fentanyl CADD 100 ML ONE (19:48)
[2020-05-04] MEDS: Zinc Sulfate 220 MG CAP PO SCH (19:58)
[2020-05-04] MEDS: Atorvastatin Calcium 20 MG TAB PO SCH (19:58)
[2020-05-05 04:51] LABS: Band 2 % (5-11); Hemoglobin 10.7 g/dL (12.0-16.0); Hypochromia SLIGHT = 6-15 cells (100X) (0-5/hpf); Lymphocytes 12 % (21-51); MDiff Complete? YES; Mean Corpuscular HGB CONC 32.9 g/dL (32.0-36.0); Mean Corpuscular Hemoglobin 28.9 pg (27.0-31.0); Monocytes 9 % (0-10); Neutrophil 77 % (42-75); Platelet Count 360 thou/uL (130-400); Platelet Morphology Comment Appears Adequate; RBC Distribution Width 15.3 % (11.5-14.5); Red Blood Cell (RBC) Count 3.69 mill/uL (4.20-5.40); White Blood Cell (WBC) Count 19.2 thou/uL (4.8-10.8)
[2020-05-05 04:56] LABS: Anion Gap 14 mmol/L (10-20); BUN (Urea Nitrogen) 39 mg/dL (9.8-20.1); Calc. Creatinine Clearance 103 mL/min (70-130); Calcium 8.8 mg/dL (7.8-10.44); Carbon Dioxide 23 mmol/L (23-31); Chloride 107 mmol/L (98-107); Glucose 117 mg/dL (83-110); Potassium 3.5 mmol/L (3.5-5.1); Sodium 140 mmol/L (136-145)
[2020-05-05] MEDS: Multivitamin W/ Minerals 1 TAB PO SCH (08:01)
[2020-05-05] MEDS: Ezetimibe 10 MG TAB PO SCH (08:01)
[2020-05-05] MEDS: Propofol 1,000 MG/100 ML VIAL IV PRN ×4 (08:01→23:04)
[2020-05-05] MEDS: Enoxaparin Sodium 60 MG/0.6 ML SYRINGE SC SCH ×2 (08:01→19:32)
[2020-05-05] MEDS: Allopurinol 300 MG TAB PO SCH (08:01)
[2020-05-05] MEDS: Clopidogrel Bisulfate 75 MG TAB PO SCH (08:01)
[2020-05-05] MEDS: Pantoprazole 40 MG GRANULES PACKET PO SCH (08:02)
[2020-05-05] MEDS: Dexamethasone 4 mg/ml Vial SLOW IVP SCH (08:02)
[2020-05-05] MEDS: Furosemide 40 MG TAB PO SCH (08:02)
[2020-05-05] MEDS: busPIRone HCl 5 MG TAB PO SCH ×3 (08:02→19:31)
[2020-05-05] MEDS: Potassium Chloride 20 MEQ TAB PO SCH (08:02)
[2020-05-05] MEDS: Aspirin 325 MG TAB PO SCH (08:02)
[2020-05-05] MEDS: Levothyroxine 100 MCG SDV SLOW IVP SCH (08:03)
--- NOTE | 2020-05-05 08:29 | RAD ---
Exam: Chest one view HISTORY:Pneumonia. Respiratory distress. Ventilated patient. Respiratory insufficiency. Comparison: 05/03/2020, 05/04/2020 FINDINGS: Lines and tubes: Redemonstration of endotracheal and nasogastric tube. Redemonstration of a right-josé ed internal jugular vascular catheter. Cardiac silhouette:Cardiomegaly. Evaluation the right heart border is limited due to patient leftward rotation Aorta: Unremarkable Pulmonary vessels: Normal Costophrenic angles: Bilateral pleural effusions LUNGS: Lung volumes continue to be diminished. Bibasilar opacities do remain. Pneumothorax: None Osseous abnormalities: None IMPRESSION: No significant interval change. Persistent bibasilar pleural and parenchymal changes. Sta ble cardiomegaly.
[2020-05-05] MEDS: Amlodipine 10 MG TAB PER TUBE SCH (09:15)
[2020-05-05] MEDS ORDERED: Potassium Chloride 20 MEQ TAB PO SCH (10:15)
[2020-05-05] MEDS: hydrALAZINE 20 MG/ML VIAL SLOW IVP PRN (11:24)
[2020-05-05] MEDS: Insulin Regular 300 UNITS/3 ML VIAL SC PRN ×2 (12:00→18:05)
[2020-05-05] MEDS: cefTRIAXone\\ROCEPHIN 2 GM in Sodium Chloride 0.9% 100 ML IVPB SCH (12:33)
[2020-05-05] MEDS: Azithromycin 500 MG in Sodium Chloride 0.9% 250 ML 250 ML IVPB SCH (12:34)
[2020-05-05] MEDS: Gabapentin 300 MG CAP PO PRN (13:15)
[2020-05-05] MEDS ORDERED: PROPOFOL 200 MG/20 ML VIAL IV SCH (14:15)
[2020-05-05] MEDS ORDERED: Succinylcholine 200 MG/10 ml SYRINGE FS SCH (14:15)
[2020-05-05] MEDS: Zinc Sulfate 220 MG CAP PO SCH (19:31)
[2020-05-05] MEDS: Atorvastatin Calcium 20 MG TAB PO SCH (19:31)
[2020-05-05] MEDS: Lorazepam 2 MG/ML VIAL SLOW IVP PRN (19:32)
--- NOTE | 2020-05-05 21:37 | PRG ---
DATE OF SERVICE: 05/05/2020 OBJECTIVE: GENERAL: Lenore Clark remains ventilated. VITAL SIGNS: FiO2 is at 30%. Heart rate is 84. Blood pressure 173/86. Intake and outputs positive 866. LUNGS: Remarkable for coarse equal breath sounds. HEART: Regular rhythm. ABDOMEN: Soft. EXTREMITIES: Trace edema. LABORATORY DATA: Chest x-ray is unchanged. White count 19.2, hemoglobin 10.7, platelets 360. Sodium 140, potassium 3.5, chloride 107, bicarb 23, BUN 39, creatinine 1.08. IMPRESSION: Respiratory failure secondary to COVID pneumonia. Her gas exchange is stable. She probably candidate for spontaneous breathing trial. . We will put in some orders to start a spontaneous breathing trial fairly early in the morning. Critical care time 30 min. Job ID: [id number] MTDD
[2020-05-05] MEDS ORDERED: Fentanyl CADD 100 ML ONE (22:02)
[2020-05-06 03:54] LABS: Anion Gap 12 mmol/L (10-20); BUN (Urea Nitrogen) 39 mg/dL (9.8-20.1); Calc. Creatinine Clearance 111 mL/min (70-130); Calcium 8.6 mg/dL (7.8-10.44); Carbon Dioxide 25 mmol/L (23-31); Chloride 112 mmol/L (98-107); Glucose 114 mg/dL (83-110); Potassium 3.7 mmol/L (3.5-5.1); Sodium 145 mmol/L (136-145)
[2020-05-06 04:59] LABS: Band 1 % (5-11); Hemoglobin 9.3 g/dL (12.0-16.0); Lymphocytes 14 % (21-51); MDiff Complete? YES; Mean Corpuscular HGB CONC 32.4 g/dL (32.0-36.0); Mean Corpuscular Hemoglobin 28.5 pg (27.0-31.0); Mean Corpuscular Volume 87.8 fL (78.0-98.0); Metamyelocyte 2 % (0-0); Monocytes 6 % (0-10); Myelocyte 1 % (0-0); Neutrophil 76 % (42-75); Platelet Count 313 thou/uL (130-400); RBC Distribution Width 15.4 % (11.5-14.5); Red Blood Cell (RBC) Count 3.28 mill/uL (4.20-5.40); White Blood Cell (WBC) Count 17.6 thou/uL (4.8-10.8)
[2020-05-06] MEDS: Aspirin 325 MG TAB PO SCH (07:56)
[2020-05-06] MEDS: Dexamethasone 4 mg/ml Vial SLOW IVP SCH (07:56)
[2020-05-06] MEDS: Amlodipine 10 MG TAB PER TUBE SCH (07:56)
[2020-05-06] MEDS: Clopidogrel Bisulfate 75 MG TAB PO SCH (07:56)
[2020-05-06] MEDS: Enoxaparin Sodium 60 MG/0.6 ML SYRINGE SC SCH ×2 (07:56→21:14)
[2020-05-06] MEDS: Allopurinol 300 MG TAB PO SCH (07:56)
[2020-05-06] MEDS: Ezetimibe 10 MG TAB PO SCH (07:57)
[2020-05-06] MEDS: Potassium Chloride 20 MEQ TAB PO SCH (07:57)
[2020-05-06] MEDS: Pantoprazole 40 MG GRANULES PACKET PO SCH (07:57)
[2020-05-06] MEDS: Furosemide 40 MG TAB PO SCH (07:57)
[2020-05-06] MEDS: Multivitamin W/ Minerals 1 TAB PO SCH (07:57)
[2020-05-06] MEDS: Propofol 1,000 MG/100 ML VIAL IV PRN (07:58)
--- NOTE | 2020-05-06 08:54 | RAD ---
CHEST 1 VIEW: HISTORY: Ventilated patient. COMPARISON: Radiograph prior day. FINDINGS: The patient is rotated to the left severely limiting this exam. Moderate to large pleural effusions. The endotracheal tube tip is near the clavicular level. The central venous catheter tip is not well seen due to rotation. IMPRESSION: Severely limited exam due to leftward patient rotation. Repeat exam recommended. POS: HOME
[2020-05-06] MEDS ORDERED: Levothyroxine 150 MCG TAB PER TUBE SCH (09:00)
[2020-05-06] MEDS ORDERED: DC Sedation Protocol FS ONE (09:28)
--- NOTE | 2020-05-06 09:36 | PRG ---
DATE OF SERVICE: 05/06/2020 SUBJECTIVE: The patient is actually doing really well. She is on CPAP, pressure support 10 with FiO2 of 30%, her O2 sats are around 99%. Her chest x-ray today is a rotated film with continued bilateral infiltrates. OBJECTIVE: HEENT: Unremarkable. NECK: No JVD. LUNGS: Fairly clear. CARDIAC: S1 and S2, regular. ABDOMEN: Soft. EXTREMITIES: No edema. LABORATORY DATA: White blood cell count 17.6, hematocrit 28.8, and platelet count 313. Sodium 145, potassium 3.7, chloride 112, CO2 of 25, BUN 39, creatinine 1.0, and glucose 114. ASSESSMENT: 1. COVID-19 pneumonia. 2. Morbid obesity. 3. Acute respiratory failure requiring mechanical ventilation. PLAN: I think we can safely extubate her to high-flow nasal cannula. The main thing is going to be management of her psychosis. Job ID: [id number]
[2020-05-06] MEDS: Methocarbamol 500 MG TAB PER TUBE SCH ×3 (09:53→21:15)
[2020-05-06] MEDS: CeleCOXIB 100 MG CAP PER TUBE SCH ×2 (09:55→21:13)
[2020-05-06] MEDS: busPIRone HCl 5 MG TAB PER TUBE SCH ×3 (09:56→21:13)
[2020-05-06] MEDS: Gabapentin 300 MG CAP PO SCH ×3 (09:58→21:14)
[2020-05-06] MEDS: Losartan 25 MG TAB PER TUBE SCH (09:59)
[2020-05-06] MEDS: Azithromycin 500 MG in Sodium Chloride 0.9% 250 ML 250 ML IVPB SCH (13:48)
[2020-05-06] MEDS: cefTRIAXone\\ROCEPHIN 2 GM in Sodium Chloride 0.9% 100 ML IVPB SCH (13:52)
[2020-05-06] MEDS: rOPINIRole HCl 1 MG TAB PO SCH ×2 (17:50→21:15)
[2020-05-06] MEDS: hydrALAZINE 25 MG TAB PO SCH ×2 (17:51→21:14)
[2020-05-06] MEDS: Zinc Sulfate 220 MG CAP PO SCH (21:13)
[2020-05-06] MEDS: Atorvastatin Calcium 20 MG TAB PO SCH (21:13)
[2020-05-06] MEDS: Ziprasidone 20 MG VIAL IM PRN (21:55)
[2020-05-07 05:20] LABS: Anisocytosis SLIGHT = 6-15 cells (100X) (0-5/hpf); Band 2 % (5-11); Hemoglobin 9.6 g/dL (12.0-16.0); Lymphocytes 16 % (21-51); MDiff Complete? YES; Mean Corpuscular Hemoglobin 29.3 pg (27.0-31.0); Mean Corpuscular Volume 88.8 fL (78.0-98.0); Mean Platelet Volume 10.6 fL (7.4-10.4); Monocytes 7 % (0-10); Myelocyte 1 % (0-0); Neutrophil 74 % (42-75); Platelet Count 343 thou/uL (130-400); Platelet Morphology Comment Appears Adequate; RBC Distribution Width 15.7 % (11.5-14.5); Red Blood Cell (RBC) Count 3.29 mill/uL (4.20-5.40); White Blood Cell (WBC) Count 19.4 thou/uL (4.8-10.8)
[2020-05-07] MEDS: Levothyroxine 150 MCG TAB PER TUBE SCH (05:34)
[2020-05-07] MEDS: hydrALAZINE 20 MG/ML VIAL SLOW IVP PRN (05:34)
[2020-05-07 06:12] LABS: Chloride 110 mmol/L (98-107); Potassium 3.3 mmol/L (3.5-5.1); Sodium 148 mmol/L (136-145)
[2020-05-07 06:13] LABS: Calcium 9.3 mg/dL (7.8-10.44); Glucose 118 mg/dL (83-110)
[2020-05-07 06:15] LABS: Anion Gap 15 mmol/L (10-20); Carbon Dioxide 26 mmol/L (23-31)
[2020-05-07 06:17] LABS: BUN (Urea Nitrogen) 37 mg/dL (9.8-20.1); Calc. Creatinine Clearance 102 mL/min (70-130)
[2020-05-07] MEDS ORDERED: Potassium Bicarbonate/Cit Ac 20 MEQ TAB PER TUBE SCH (06:45)
[2020-05-07] MEDS: Gabapentin 300 MG CAP PO SCH (08:03)
[2020-05-07] MEDS: busPIRone HCl 5 MG TAB PER TUBE SCH ×3 (08:04→21:07)
[2020-05-07] MEDS: Ezetimibe 10 MG TAB PO SCH (08:04)
[2020-05-07] MEDS: Enoxaparin Sodium 60 MG/0.6 ML SYRINGE SC SCH ×2 (08:04→09:01)
[2020-05-07] MEDS: Dexamethasone 4 mg/ml Vial SLOW IVP SCH (08:04)
[2020-05-07] MEDS: Furosemide 40 MG TAB PO SCH (08:05)
[2020-05-07] MEDS: Pantoprazole 40 MG GRANULES PACKET PO SCH (08:05)
[2020-05-07] MEDS: hydrALAZINE 25 MG TAB PO SCH (08:05)
[2020-05-07] MEDS: Clopidogrel Bisulfate 75 MG TAB PO SCH (08:05)
[2020-05-07] MEDS: Aspirin 325 MG TAB PO SCH (08:05)
[2020-05-07] MEDS: Losartan 25 MG TAB PER TUBE SCH (08:05)
[2020-05-07] MEDS: Potassium Chloride 20 MEQ TAB PO SCH (08:06)
[2020-05-07] MEDS: Multivitamin W/ Minerals 1 TAB PO SCH (08:06)
[2020-05-07] MEDS: Amlodipine 10 MG TAB PER TUBE SCH (08:06)
[2020-05-07] MEDS: CeleCOXIB 100 MG CAP PER TUBE SCH ×2 (08:07→21:07)
[2020-05-07] MEDS: Methocarbamol 500 MG TAB PER TUBE SCH (08:08)
[2020-05-07] MEDS: rOPINIRole HCl 1 MG TAB PO SCH ×3 (08:09→21:08)
[2020-05-07] MEDS: Allopurinol 300 MG TAB PO SCH (08:40)
[2020-05-07] MEDS ORDERED: Propofol 500 MG/50 ML VIAL IV PRN (09:52)
[2020-05-07] MEDS ORDERED: Propofol 1,000 MG/100 ML VIAL IV ONE ×2 (09:54→15:10)
[2020-05-07] MEDS ORDERED: Vecuronium 10 MG VIAL ONE (09:55)
--- NOTE | 2020-05-07 10:57 | PRG ---
DATE OF SERVICE: 05/07/2020 35 minutes of critical care time. SUBJECTIVE: The patient remains intubated on mechanical ventilation. There have been no acute changes overnight except for the hemoptysis and blood in the endotracheal tube. OBJECTIVE: VITAL SIGNS: Temperature 98.2, pulse 98, blood pressure 175/96, O2 saturation 97%. She is actually on CPAP 5, pressure support 10, FiO2 of about 30%. NEUROLOGIC: Her mental status remains poor. She does not wake up and follow commands appropriately, although she does move around. HEENT: Unremarkable. NECK: No adenopathy or JVD. LUNGS: Poor air movement. CARDIOVASCULAR: S1 and S2, regular. ABDOMEN: Soft. EXTREMITIES: Edematous. LABORATORY DATA: Sodium 140, potassium 3.3, chloride 110, CO2 of 26, BUN 37, creatinine 1.1, and glucose 118. White blood cell count 19.4, hematocrit 39.2, and platelet count 343. X-ray continued to show bilateral diffuse infiltrates. ASSESSMENT: 1. COVID-19 pneumonia. 2. Acute respiratory failure requiring mechanical ventilation. 3. Morbid obesity. 4. Massive hemoptysis. PLAN: 1. Bronchoscopy was performed which showed findings of suction trauma, left lower lobe. 2. Anticoagulation will have to be held for a couple of days because of the significant bleeding. 3. She is not a candidate for extubation because her mental status is poor. 4. Continue steroids. 5. Hold diuretics as she is becoming hypernatremic. Job ID: [id number]
[2020-05-07] MEDS: Vecuronium 10 MG VIAL IVP PRN ×3 (11:02→21:09)
--- NOTE | 2020-05-07 11:59 | OP ---
DATE OF PROCEDURE: 05/07/2020 PROCEDURE PERFORMED: Bronchoscopy. PREOPERATIVE DIAGNOSIS: Massive hemoptysis through endotracheal tube. POSTOPERATIVE DIAGNOSIS: The patient has suction trauma, which is fairly significant in the left lower lobe. ANESTHESIA: She was given propofol and was paralyzed with Norcuron prior to the procedure. DESCRIPTION OF PROCEDURE: An Ambu 2.4 bronchoscope was placed through the patient's endotracheal tube. The zachariah was sharp. There was old suction trauma present in the left lower lobe. There was no active hemorrhage. The scope was placed in the left lingula, where 60 mL of normal saline was inserted and lavaged and returned. Similar specimen was taken from the right middle lobe. These were pulled and sent for routine studies including Pneumocystis. She tolerated the procedure well. Job ID: [id number]
--- NOTE | 2020-05-07 13:20 | RAD ---
RADIOGRAPH CHEST 1 VIEW: DATE: 05/07/2020 TIME: 4:18 AM HISTORY: 75-year-old female with respiratory failure COMPARISON: 05/06/2020 FINDINGS: Patient is no longer severely rotated to the left as previously. However, patient is contrast over with chin obscuring bilateral lung apices, especially right. Endotracheal tube distal tip is not only at the zachariah, it is at the level of the clavicular heads, d ue to patient position. Diffuse bilateral infiltrates are difficult to compare with the prior study because of very different positions and body habitus. IMPRESSION: Diffuse bilateral infiltrates, right worse than left.
[2020-05-07] MEDS: hydrALAZINE 25 MG TAB PER TUBE SCH ×2 (14:36→21:08)
[2020-05-07] MEDS: Insulin Regular 300 UNITS/3 ML VIAL SC PRN (15:21)
[2020-05-07] MEDS: Atorvastatin Calcium 20 MG TAB PO SCH (21:07)
[2020-05-07] MEDS: Zinc Sulfate 220 MG CAP PO SCH (21:07)
[2020-05-07] MEDS: Potassium Bicarbonate/Cit Ac 20 MEQ TAB PER TUBE SCH (21:08)
[2020-05-07] MEDS: Propofol 1,000 MG/100 ML VIAL IV PRN (21:09)
[2020-05-08] MEDS: Vecuronium 10 MG VIAL IVP PRN (03:08)
[2020-05-08] MEDS: Propofol 1,000 MG/100 ML VIAL IV PRN ×2 (03:08→20:23)
[2020-05-08] MEDS: Levothyroxine 150 MCG TAB PER TUBE SCH (05:02)
[2020-05-08 05:58] LABS: Anion Gap 14 mmol/L (10-20); BUN (Urea Nitrogen) 38 mg/dL (9.8-20.1); Calc. Creatinine Clearance 87 mL/min (70-130); Calcium 9.2 mg/dL (7.8-10.44); Carbon Dioxide 28 mmol/L (23-31); Chloride 109 mmol/L (98-107); Glucose 123 mg/dL (83-110); Sodium 147 mmol/L (136-145)
[2020-05-08 06:12] LABS: Hemoglobin 9.7 g/dL (12.0-16.0); Mean Corpuscular HGB CONC 31.6 g/dL (32.0-36.0); Mean Corpuscular Volume 88.6 fL (78.0-98.0); Mean Platelet Volume 10.1 fL (7.4-10.4); Platelet Count 346 thou/uL (130-400); RBC Distribution Width 15.6 % (11.5-14.5); Red Blood Cell (RBC) Count 3.45 mill/uL (4.20-5.40); White Blood Cell (WBC) Count 23.1 thou/uL (4.8-10.8)
[2020-05-08 06:15] LABS: Band 5 % (5-11); Lymphocytes 8 % (21-51); MDiff Complete? YES; Monocytes 4 % (0-10); Neutrophil 83 % (42-75)
[2020-05-08] MEDS: Dexamethasone 4 mg/ml Vial SLOW IVP SCH (07:52)
[2020-05-08] MEDS: CeleCOXIB 100 MG CAP PER TUBE SCH ×2 (07:53→21:26)
[2020-05-08] MEDS: Ezetimibe 10 MG TAB PO SCH (07:53)
[2020-05-08] MEDS: rOPINIRole HCl 1 MG TAB PO SCH ×3 (07:53→21:27)
[2020-05-08] MEDS: Aspirin 325 MG TAB PO SCH (07:54)
[2020-05-08] MEDS: hydrALAZINE 25 MG TAB PER TUBE SCH ×3 (07:54→21:25)
[2020-05-08] MEDS: busPIRone HCl 5 MG TAB PER TUBE SCH ×3 (07:54→21:21)
[2020-05-08] MEDS: Allopurinol 300 MG TAB PO SCH (07:55)
[2020-05-08] MEDS: Multivitamin W/ Minerals 1 TAB PO SCH (07:55)
[2020-05-08] MEDS: Amlodipine 10 MG TAB PER TUBE SCH (07:55)
[2020-05-08] MEDS: Losartan 25 MG TAB PER TUBE SCH (07:56)
[2020-05-08] MEDS: Pantoprazole 40 MG GRANULES PACKET PO SCH (07:56)
[2020-05-08] MEDS: Potassium Bicarbonate/Cit Ac 20 MEQ TAB PER TUBE SCH ×2 (07:56→21:27)
[2020-05-08] MEDS: Clopidogrel Bisulfate 75 MG TAB PO SCH (07:56)
[2020-05-08] MEDS: cloNIDine 0.1mg/24 Hour PATCH TD SCH (08:03)
--- NOTE | 2020-05-08 10:41 | RAD ---
EXAM: Chest one view: HISTORY: Respiratory insufficiency COMPARISON: 05/07/2020 FINDINGS: Life support tubes in place Heart size: Stable cardiomegaly Lungs: Extensive bilateral alveolar parenchymal changes with evidence for bilateral pleural effusions , overall stable. No pneumothorax. IMPRESSION: Overall stable appearing chest. Continued short-term follow-up.
--- NOTE | 2020-05-08 15:42 | PRG ---
DATE OF SERVICE: 05/08/2020 After much coercion, I did get the patient to wake up. She followed commands by squeezing my hands, moving her legs and lifting her head off the bed. She indicated that she did not like the restraints. OBJECTIVE: VITAL SIGNS: Temperature 98.3, pulse 100, blood pressure 153/92. A 24-hour intake 9 and output 5. HEENT: Unremarkable. NECK: No JVD. LUNGS: Inspiratory crackles bilaterally. CARDIAC: S1 and S2. Regular. ABDOMEN: Soft. EXTREMITIES: Edematous. IMAGING DATA: Her x-ray shows diffuse bilateral infiltrates, which are unchanged. LABORATORY DATA: White blood cell count 23, hematocrit 30, and platelet count 346. Sodium 147, potassium 4, chloride 109, CO2 of 28, BUN 38, creatinine 1.2, glucose 123. ASSESSMENT: 1. Improved encephalopathy - currently not requiring any sedation. 2. COVID-19 pneumonia. 3. Status post massive hemoptysis. 4. Acute respiratory failure requiring mechanical ventilation. 5. Morbid obesity. PLAN: 1. Anticoagulation should be started again tomorrow. 2. Continue to hold sedation as much as possible. 3. Continue steroids. 4. Diuretics were held yesterday with slight improvement in her sodium level today, therefore, diuretics will continue to be held. 5. Discussed case with patient's attending, Dr. Murillo. Job ID: [id number]
[2020-05-08] MEDS: Zinc Sulfate 220 MG CAP PO SCH (21:27)
[2020-05-08] MEDS: Atorvastatin Calcium 20 MG TAB PO SCH (21:27)
[2020-05-08] MEDS: Ziprasidone 20 MG VIAL IM PRN (23:25)
[2020-05-09] MEDS: Propofol 1,000 MG/100 ML VIAL IV PRN ×4 (04:12→20:38)
[2020-05-09 04:35] LABS: Anion Gap 15 mmol/L (10-20); BUN (Urea Nitrogen) 43 mg/dL (9.8-20.1); Calc. Creatinine Clearance 75 mL/min (70-130); Calcium 8.9 mg/dL (7.8-10.44); Carbon Dioxide 28 mmol/L (23-31); Chloride 110 mmol/L (98-107); Glucose 111 mg/dL (83-110); Potassium 3.8 mmol/L (3.5-5.1); Sodium 149 mmol/L (136-145)
[2020-05-09 04:41] LABS: Band 3 % (5-11); Lymphocytes 19 % (21-51); MDiff Complete? YES; Mean Corpuscular HGB CONC 31.7 g/dL (32.0-36.0); Mean Corpuscular Hemoglobin 28.2 pg (27.0-31.0); Mean Corpuscular Volume 88.9 fL (78.0-98.0); Mean Platelet Volume 10.5 fL (7.4-10.4); Monocytes 5 % (0-10); Neutrophil 73 % (42-75); Platelet Count 324 thou/uL (130-400); RBC Distribution Width 15.8 % (11.5-14.5); Red Blood Cell (RBC) Count 3.19 mill/uL (4.20-5.40); White Blood Cell (WBC) Count 19.6 thou/uL (4.8-10.8)
[2020-05-09] MEDS: Levothyroxine 150 MCG TAB PER TUBE SCH (05:44)
--- NOTE | 2020-05-09 08:13 | RAD ---
Frontal radiograph chest: 05/09/2020 COMPARISON: 05/08/2020 HISTORY: Pneumonia FINDINGS: Stable endotracheal tube, nasogastric tube, and right vascular catheter. Cardiac silhouette appears enlarged. Body habitus limits detailed assessment. There is dense perihilar and basilar opacity bilaterally, no nspecific and unchanged. IMPRESSION: No no interval change.
[2020-05-09] MEDS: Dexamethasone 4 mg/ml Vial SLOW IVP SCH (08:50)
[2020-05-09] MEDS: CeleCOXIB 100 MG CAP PER TUBE SCH ×2 (08:51→20:33)
[2020-05-09] MEDS: Losartan 25 MG TAB PER TUBE SCH (08:51)
[2020-05-09] MEDS: Multivitamin W/ Minerals 1 TAB PO SCH (08:52)
[2020-05-09] MEDS: busPIRone HCl 5 MG TAB PER TUBE SCH ×3 (08:52→20:35)
[2020-05-09] MEDS: Pantoprazole 40 MG GRANULES PACKET PO SCH (08:52)
[2020-05-09] MEDS: Amlodipine 10 MG TAB PER TUBE SCH (08:52)
[2020-05-09] MEDS: rOPINIRole HCl 1 MG TAB PO SCH ×3 (08:52→20:35)
[2020-05-09] MEDS: hydrALAZINE 25 MG TAB PER TUBE SCH ×3 (08:52→20:34)
[2020-05-09] MEDS: Allopurinol 300 MG TAB PO SCH (08:52)
[2020-05-09] MEDS: Ezetimibe 10 MG TAB PO SCH (08:53)
[2020-05-09] MEDS: Sulfameth/Trimethoprim DS 800-160mg TAB PER TUBE SCH ×2 (08:53→20:34)
[2020-05-09] MEDS: Clopidogrel Bisulfate 75 MG TAB PO SCH (08:53)
[2020-05-09] MEDS: Aspirin 325 MG TAB PO SCH (08:53)
[2020-05-09] MEDS: Potassium Bicarbonate/Cit Ac 20 MEQ TAB PER TUBE SCH ×2 (08:53→20:35)
[2020-05-09] MEDS: Heparin 5,000 UNITS/ML VIAL SC SCH ×2 (14:39→20:36)
[2020-05-09] MEDS: Insulin Regular 300 UNITS/3 ML VIAL SC PRN (15:04)
--- NOTE | 2020-05-09 18:57 | PRG ---
DATE OF SERVICE: 05/09/2020 SUBJECTIVE: Amber remains in critical care unit. OBJECTIVE: VITAL SIGNS: She is afebrile, respiratory rates in the teens, FiO2 is at 30. Heart rate is in 60s. Blood pressure 118/61. Intake and outputs positive 243 mL. LUNGS: Clear. HEART: Regular rhythm. ABDOMEN: Soft. EXTREMITIES: Without asymmetry. LABORATORY DATA: White count 19.6, hemoglobin 9, platelets 324. Electrolytes are unremarkable. BUN 43, creatinine 1.43. IMPRESSION: 1. Respiratory failure. 2. Encephalopathy. 3. Hemoptysis. 4. Morbid obesity. We will restart anticoagulation. Continue intensive blood pressure control, mechanical ventilation. We will start her out on Lovenox 40 twice a day and we will see how she is going to do with this since she had significant hemoptysis apparently. Job ID: [id number]
[2020-05-09] MEDS: Zinc Sulfate 220 MG CAP PO SCH (20:34)
[2020-05-09] MEDS: Atorvastatin Calcium 20 MG TAB PO SCH (20:35)
[2020-05-09] MEDS ORDERED: Enoxaparin Sodium 40 MG/0.4 ML SYRINGE SC SCH (21:00)
[2020-05-09] MEDS: Ziprasidone 20 MG VIAL IM PRN (23:21)
[2020-05-10] MEDS: Propofol 1,000 MG/100 ML VIAL IV PRN (01:58)
[2020-05-10 05:21] LABS: Anion Gap 13 mmol/L (10-20); BUN (Urea Nitrogen) 49 mg/dL (9.8-20.1); Calc. Creatinine Clearance 69 mL/min (70-130); Carbon Dioxide 31 mmol/L (23-31); Chloride 110 mmol/L (98-107); Glucose 102 mg/dL (83-110); Potassium 4.1 mmol/L (3.5-5.1); Sodium 150 mmol/L (136-145)
[2020-05-10 05:23] LABS: Band 3 % (5-11); Hemoglobin 8.7 g/dL (12.0-16.0); Lymphocytes 21 % (21-51); MDiff Complete? YES; Mean Corpuscular HGB CONC 31.7 g/dL (32.0-36.0); Mean Corpuscular Hemoglobin 28.6 pg (27.0-31.0); Mean Corpuscular Volume 90.2 fL (78.0-98.0); Mean Platelet Volume 10.7 fL (7.4-10.4); Monocytes 2 % (0-10); Neutrophil 74 % (42-75); Platelet Count 270 thou/uL (130-400); RBC Distribution Width 15.6 % (11.5-14.5); Red Blood Cell (RBC) Count 3.03 mill/uL (4.20-5.40); White Blood Cell (WBC) Count 18.8 thou/uL (4.8-10.8)
[2020-05-10] MEDS: Levothyroxine 150 MCG TAB PER TUBE SCH (05:35)
--- NOTE | 2020-05-10 07:54 | RAD ---
EXAM: Single view of the chest HISTORY: Pneumonia COMPARISON: 05/09/2020 FINDINGS: Single view of the chest shows an enlarged but stable cardiomediastinal silhouette. The li liborio and tubes are unchanged in position. Scattered multifocal infiltrates are seen in the lungs. There may be a left pleural effusion. No acute osseous abnormality. IMPRESSION: Stable exam
[2020-05-10] MEDS: CeleCOXIB 100 MG CAP PER TUBE SCH ×2 (08:03→20:54)
[2020-05-10] MEDS: Aspirin 325 MG TAB PO SCH (08:03)
[2020-05-10] MEDS: Ezetimibe 10 MG TAB PO SCH (08:03)
[2020-05-10] MEDS: hydrALAZINE 25 MG TAB PER TUBE SCH ×3 (08:04→20:54)
[2020-05-10] MEDS: rOPINIRole HCl 1 MG TAB PO SCH ×3 (08:04→20:55)
[2020-05-10] MEDS: busPIRone HCl 5 MG TAB PER TUBE SCH ×3 (08:04→20:54)
[2020-05-10] MEDS: Allopurinol 300 MG TAB PO SCH (08:04)
[2020-05-10] MEDS: Sulfameth/Trimethoprim DS 800-160mg TAB PER TUBE SCH ×2 (08:04→20:55)
[2020-05-10] MEDS: Dexamethasone 4 mg/ml Vial SLOW IVP SCH (08:05)
[2020-05-10] MEDS: Pantoprazole 40 MG GRANULES PACKET PO SCH (08:05)
[2020-05-10] MEDS: Amlodipine 10 MG TAB PER TUBE SCH (08:05)
[2020-05-10] MEDS: Heparin 5,000 UNITS/ML VIAL SC SCH ×3 (08:05→20:54)
[2020-05-10] MEDS: Clopidogrel Bisulfate 75 MG TAB PO SCH (08:05)
[2020-05-10] MEDS: Multivitamin W/ Minerals 1 TAB PO SCH (08:05)
[2020-05-10] MEDS: Potassium Bicarbonate/Cit Ac 20 MEQ TAB PER TUBE SCH ×2 (08:05→20:55)
[2020-05-10] MEDS: Acetaminophen 325 MG TAB PO PRN (08:06)
[2020-05-10] MEDS: Losartan 25 MG TAB PER TUBE SCH (08:07)
[2020-05-10] MEDS ORDERED: Propofol BOLUS 1,000 MG/100 ML VIAL IV PRN (08:30)
--- NOTE | 2020-05-10 09:08 | PRG ---
DATE OF SERVICE: 05/10/2020 35 minutes critical care time. SUBJECTIVE: Ms. Clark remains intubated on mechanical ventilation. She is off sedation. I cannot get her wake up. She will follow some commands. OBJECTIVE: VITAL SIGNS: Temperature 98.0, pulse 53, blood pressure 171/79, O2 saturation 100%. 24 intake 1307, output 1080. HEENT: Unremarkable. NECK: No JVD. LUNGS: Diminished breath sounds. CARDIAC: S1 and S2. Regular. ABDOMEN: Obese, soft, nontender. EXTREMITIES: Edematous. IMAGING DATA: Her chest x-ray demonstrates improving bilateral infiltrates. LABORATORY DATA: White blood cell count 18.8, hematocrit 27.3, and platelet count 270. Sodium 150, potassium 4.1, chloride 110, CO2 of 31, BUN 49, creatinine 1.5, and glucose 102. ASSESSMENT: 1. COVID-19 pneumonia. 2. Acute hypoxic respiratory failure requiring mechanical ventilation. 3. Increasing sodium, BUN, and creatinine, indicating that she is developing a free water deficit versus having adverse effect to the Bactrim that was started yesterday. PLAN: I will go ahead and start her on some D5W. We will have to watch her renal function closely. She still has profound neuromuscular weakness and did not pass weaning trial today. I am encouraged by her improving oxygenation and improving x-ray. Job ID: [id number]
[2020-05-10] MEDS: Ziprasidone 20 MG VIAL IM PRN (10:34)
[2020-05-10] MEDS: cloNIDine 0.2mg/24 Hour PATCH TD SCH (10:40)
[2020-05-10] MEDS: Dextrose 5% in Water 1,000 ML IV SCH ×2 (10:40→20:56)
[2020-05-10] MEDS: hydrALAZINE 20 MG/ML VIAL SLOW IVP PRN (12:41)
[2020-05-10] MEDS: Insulin Regular 300 UNITS/3 ML VIAL SC PRN (16:25)
[2020-05-10] MEDS: Zinc Sulfate 220 MG CAP PO SCH (20:54)
[2020-05-10] MEDS: Atorvastatin Calcium 20 MG TAB PO SCH (20:54)
[2020-05-11 07:22] LABS: Anion Gap 15 mmol/L (10-20); BUN (Urea Nitrogen) 44 mg/dL (9.8-20.1); Calc. Creatinine Clearance 72 mL/min (70-130); Carbon Dioxide 28 mmol/L (23-31); Chloride 107 mmol/L (98-107); Glucose 140 mg/dL (83-110); Potassium 3.8 mmol/L (3.5-5.1); Sodium 146 mmol/L (136-145)
[2020-05-11] MEDS: Levothyroxine 150 MCG TAB PER TUBE SCH (07:33)
--- NOTE | 2020-05-11 07:33 | RAD ---
Chest one view HISTORY: Pneumonia. Follow-up. COMPARISON: 05/10/2020. FINDINGS: Cardiac silhouette is magnified, enlarged, and partially obscured by bilateral pleural flui d and bibasilar infiltrates that are similar in appearance to the prior study. Pulmonary vascular engorgement and bilateral perihilar infiltrates are slightly less dense than on th e prior exam. Mediastinum is midline. Lines and tubes unchanged in position. No evidence of pneumothorax. IMPRESSION : Slight gradual improvement.
[2020-05-11 07:34] LABS: Hemoglobin 9.2 g/dL (12.0-16.0); Mean Corpuscular HGB CONC 31.4 g/dL (32.0-36.0); Mean Corpuscular Hemoglobin 28.3 pg (27.0-31.0); Mean Corpuscular Volume 90.2 fL (78.0-98.0); Mean Platelet Volume 10.7 fL (7.4-10.4); Platelet Count 266 thou/uL (130-400); RBC Distribution Width 15.7 % (11.5-14.5); Red Blood Cell (RBC) Count 3.25 mill/uL (4.20-5.40); White Blood Cell (WBC) Count 17.2 thou/uL (4.8-10.8)
[2020-05-11 08:15] LABS: Band 1 % (5-11); Lymphocytes 27 % (21-51); MDiff Complete? YES; Metamyelocyte 1 % (0-0); Monocytes 5 % (0-10); Neutrophil 65 % (42-75); Platelet Morphology Comment Appears Adequate; Polychromasia SLIGHT = 2-3 cells (100X) (0-2/hpf); Reactive Lymphocytes 1 % (0-10)
--- NOTE | 2020-05-11 08:56 | PRG ---
DATE OF SERVICE: 05/11/2020 30 minutes of critical care time. SUBJECTIVE: The patient remains intubated on mechanical ventilation. She will wake up, but does not follow commands very well. She is currently on a Precedex drip. Heart rate is running in the 40s. OBJECTIVE: VITAL SIGNS: Temperature 97.0, pulse 47, blood pressure 166/83, O2 saturation 100%. 24-hour intake 2985, output 2175. HEENT: Unchanged. Oropharynx is intubated. NECK: No adenopathy or JVD. LUNGS: Fairly clear. CARDIAC: S1, S2 regular. Bradycardic. ABDOMEN: Soft. EXTREMITIES: Edematous. DIAGNOSTIC AND LABORATORY DATA: The cytology specimen from the bronch last week showed no evidence of Pneumocystis. Her chest x-ray shows bilateral infiltrative changes, small bilateral pleural effusions. Sodium 146, potassium 3.8, chloride 107, CO2 28, BUN 44, creatinine 1.5, glucose 140. White blood cell count 17, hematocrit 29.3, platelet count 266. ASSESSMENT: 1. COVID-19 pneumonia. 2. Acute hypoxic respiratory failure requiring mechanical ventilation. 3. Bradycardia, likely secondary to Precedex. 4. Improved free water deficit. PLAN: 1. Continue the D5W for another day or two. 2. Change to propofol with lightest amount of sedation possible. 3. Stop Precedex as it is likely contributing to the patient's bradycardia. 4. We will begin to wean her steroid dose. Job ID: [id number]
[2020-05-11] MEDS: Heparin 5,000 UNITS/ML VIAL SC SCH ×3 (09:13→21:25)
[2020-05-11] MEDS: Dexamethasone 4 mg/ml Vial SLOW IVP SCH (09:13)
[2020-05-11] MEDS: Aspirin 325 MG TAB PO SCH (09:13)
[2020-05-11] MEDS: Allopurinol 300 MG TAB PO SCH (09:13)
[2020-05-11] MEDS: rOPINIRole HCl 1 MG TAB PO SCH ×3 (09:13→21:26)
[2020-05-11] MEDS: Ezetimibe 10 MG TAB PO SCH (09:13)
[2020-05-11] MEDS: Clopidogrel Bisulfate 75 MG TAB PO SCH (09:13)
[2020-05-11] MEDS: Potassium Bicarbonate/Cit Ac 20 MEQ TAB PER TUBE SCH ×2 (09:14→21:26)
[2020-05-11] MEDS: busPIRone HCl 5 MG TAB PER TUBE SCH ×3 (09:14→21:24)
[2020-05-11] MEDS: Sulfameth/Trimethoprim DS 800-160mg TAB PER TUBE SCH ×2 (09:14→21:26)
[2020-05-11] MEDS: Multivitamin W/ Minerals 1 TAB PO SCH (09:14)
[2020-05-11] MEDS: hydrALAZINE 25 MG TAB PER TUBE SCH ×3 (09:14→21:25)
[2020-05-11] MEDS: Pantoprazole 40 MG GRANULES PACKET PO SCH (09:15)
[2020-05-11] MEDS: Losartan 25 MG TAB PER TUBE SCH (09:15)
[2020-05-11] MEDS: Amlodipine 10 MG TAB PER TUBE SCH (09:15)
[2020-05-11] MEDS: CeleCOXIB 100 MG CAP PER TUBE SCH ×2 (09:15→21:25)
[2020-05-11] MEDS: Propofol 1,000 MG/100 ML VIAL IV PRN ×2 (09:26→17:27)
[2020-05-11] MEDS: Dextrose 5% in Water 1,000 ML IV SCH (09:27)
[2020-05-11] MEDS: Zinc Sulfate 220 MG CAP PO SCH (21:24)
[2020-05-11] MEDS: Atorvastatin Calcium 20 MG TAB PO SCH (21:24)
[2020-05-12] MEDS: Dextrose 5% in Water 1,000 ML IV SCH (02:42)
[2020-05-12] MEDS: Levothyroxine 150 MCG TAB PER TUBE SCH (06:01)
[2020-05-12] MEDS: Propofol 1,000 MG/100 ML VIAL IV PRN ×3 (06:02→19:18)
[2020-05-12 06:03] LABS: Anion Gap 12 mmol/L (10-20); BUN (Urea Nitrogen) 40 mg/dL (9.8-20.1); Calc. Creatinine Clearance 72 mL/min (70-130); Calcium 8.8 mg/dL (7.8-10.44); Carbon Dioxide 28 mmol/L (23-31); Chloride 105 mmol/L (98-107); Glucose 110 mg/dL (83-110); Potassium 4.2 mmol/L (3.5-5.1); Sodium 141 mmol/L (136-145)
[2020-05-12 06:18] LABS: Band 1 % (5-11); Eosinophils 1 % (0-10); Hemoglobin 9.1 g/dL (12.0-16.0); Lymphocytes 20 % (21-51); MDiff Complete? YES; Mean Corpuscular HGB CONC 32.2 g/dL (32.0-36.0); Mean Corpuscular Hemoglobin 29.2 pg (27.0-31.0); Mean Corpuscular Volume 90.7 fL (78.0-98.0); Monocytes 4 % (0-10); Neutrophil 74 % (42-75); Platelet Count 234 thou/uL (130-400); RBC Distribution Width 15.5 % (11.5-14.5); Red Blood Cell (RBC) Count 3.11 mill/uL (4.20-5.40); White Blood Cell (WBC) Count 15.9 thou/uL (4.8-10.8)
--- NOTE | 2020-05-12 08:12 | RAD ---
Frontal radiograph chest: 05/12/2020 COMPARISON: 05/11/2020 HISTORY: Pneumonia FINDINGS: Cardiac silhouette is enlarged. Persistent nonspecific dense opacity noted in the left base with obscuration of left hemidiaphragm and blunting of the left costophrenic angle. Left costophrenic angle is not fully imaged on this exam. Stable endotracheal tube, nasogastric tube, and right vascular catheter. Persistent patchy nonspecific opacity noted in the right base with blunting of the right costophrenic angle. IMPRESSION: No significant interval change.
[2020-05-12] MEDS: hydrALAZINE 25 MG TAB PER TUBE SCH ×3 (08:36→21:35)
[2020-05-12] MEDS: Clopidogrel Bisulfate 75 MG TAB PO SCH (08:37)
[2020-05-12] MEDS: Pantoprazole 40 MG GRANULES PACKET PO SCH (08:37)
[2020-05-12] MEDS: Potassium Bicarbonate/Cit Ac 20 MEQ TAB PER TUBE SCH ×2 (08:37→21:34)
[2020-05-12] MEDS: rOPINIRole HCl 1 MG TAB PO SCH ×3 (08:37→21:36)
[2020-05-12] MEDS: busPIRone HCl 5 MG TAB PER TUBE SCH ×3 (08:37→21:36)
[2020-05-12] MEDS: Losartan 25 MG TAB PER TUBE SCH (08:37)
[2020-05-12] MEDS: Aspirin 325 MG TAB PO SCH (08:37)
[2020-05-12] MEDS: Heparin 5,000 UNITS/ML VIAL SC SCH ×3 (08:41→21:36)
[2020-05-12] MEDS: Sulfameth/Trimethoprim DS 800-160mg TAB PER TUBE SCH ×2 (08:41→21:35)
[2020-05-12] MEDS: Dexamethasone 4 mg/ml Vial SLOW IVP SCH (08:41)
[2020-05-12] MEDS: Amlodipine 10 MG TAB PER TUBE SCH (08:43)
[2020-05-12] MEDS: Allopurinol 300 MG TAB PO SCH (08:43)
[2020-05-12] MEDS: Multivitamin W/ Minerals 1 TAB PO SCH (08:43)
[2020-05-12] MEDS: CeleCOXIB 100 MG CAP PER TUBE SCH ×2 (08:43→21:34)
[2020-05-12] MEDS: Ezetimibe 10 MG TAB PO SCH (08:45)
--- NOTE | 2020-05-12 09:07 | PRG ---
DATE OF SERVICE: 05/12/2020 Thirty minutes critical care time. SUBJECTIVE: The patient remains intubated, on mechanical ventilation. She is lightly sedated on propofol. She is currently on CPAP, pressure support breathing with a pressure support of 16, with that her tidal volumes are still low, usually are less than 400. PHYSICAL EXAMINATION: VITAL SIGNS: Temperature is 98.6, pulse 57, blood pressure 122/73, O2 saturation 100%. 24-hour intake 3374, output 2220. HEENT: Unremarkable. NECK: No adenopathy or JVD. LUNGS: Clear anteriorly. CARDIAC: S1 and S2, regular. ABDOMEN: Obese, soft, nontender. EXTREMITIES: Edematous. IMAGING STUDIES: Her chest x-ray shows cardiomegaly. Otherwise, fairly clear lung kilgore. LABORATORY DATA: Sodium 141, potassium 4.2, chloride 105, CO2 of 28, BUN 40, creatinine 1.5, glucose 110. White blood cell count 15.9, hematocrit 28.2, and platelet count 234. ASSESSMENT: 1. COVID-19 pneumonia. 2. Acute hypoxic respiratory failure, requiring mechanical ventilation. 3. Bradycardia-improved after discontinuation of Precedex. 4. Improved free water deficit. PLAN: 1. Stop the D5W. 2. The main issue that is preventing us from weaning is the patient's severe neuromuscular weakness. I have decreased her pressure support from 16 to 14. With that, her tidal volumes are little less than 400. I am quite concerned that she does not have the neurologic strength to be able to handle extubation and may require a tracheostomy, even though her oxygenation and x-ray have improved significantly. We will continue to follow. Job ID: [id number]
[2020-05-12] MEDS: Atorvastatin Calcium 20 MG TAB PO SCH (21:35)
[2020-05-12] MEDS: Zinc Sulfate 220 MG CAP PO SCH (21:36)
[2020-05-13] MEDS: Propofol 1,000 MG/100 ML VIAL IV PRN ×5 (01:06→23:09)
[2020-05-13 04:01] LABS: Band 1 % (5-11); Eosinophils 3 % (0-10); Lymphocytes 25 % (21-51); MDiff Complete? YES; Mean Corpuscular HGB CONC 32.1 g/dL (32.0-36.0); Mean Corpuscular Hemoglobin 28.9 pg (27.0-31.0); Mean Platelet Volume 10.6 fL (7.4-10.4); Monocytes 4 % (0-10); Neutrophil 66 % (42-75); Platelet Count 238 thou/uL (130-400); Platelet Morphology Comment Appears Adequate; RBC Distribution Width 15.9 % (11.5-14.5); Red Blood Cell (RBC) Count 3.13 mill/uL (4.20-5.40); White Blood Cell (WBC) Count 15.5 thou/uL (4.8-10.8)
[2020-05-13 04:12] LABS: Anion Gap 14 mmol/L (10-20); BUN (Urea Nitrogen) 38 mg/dL (9.8-20.1); Calc. Creatinine Clearance 66 mL/min (70-130); Calcium 8.8 mg/dL (7.8-10.44); Carbon Dioxide 26 mmol/L (23-31); Chloride 104 mmol/L (98-107); Glucose 105 mg/dL (83-110); Potassium 4.2 mmol/L (3.5-5.1); Sodium 140 mmol/L (136-145)
[2020-05-13] MEDS: Levothyroxine 150 MCG TAB PER TUBE SCH (06:00)
[2020-05-13] MEDS: Allopurinol 300 MG TAB PO SCH (08:36)
[2020-05-13] MEDS: Amlodipine 10 MG TAB PER TUBE SCH (08:37)
[2020-05-13] MEDS: busPIRone HCl 5 MG TAB PER TUBE SCH ×3 (08:37→20:51)
[2020-05-13] MEDS: Aspirin 325 MG TAB PO SCH (08:37)
[2020-05-13] MEDS: CeleCOXIB 100 MG CAP PER TUBE SCH ×2 (08:38→20:50)
[2020-05-13] MEDS: Clopidogrel Bisulfate 75 MG TAB PO SCH (08:39)
[2020-05-13] MEDS: Dexamethasone 4 mg/ml Vial SLOW IVP SCH (08:39)
[2020-05-13] MEDS: Heparin 5,000 UNITS/ML VIAL SC SCH ×3 (08:40→20:54)
[2020-05-13] MEDS: Ezetimibe 10 MG TAB PO SCH (08:40)
[2020-05-13] MEDS: hydrALAZINE 25 MG TAB PER TUBE SCH ×3 (08:40→20:51)
[2020-05-13] MEDS: Potassium Bicarbonate/Cit Ac 20 MEQ TAB PER TUBE SCH ×2 (08:41→20:53)
[2020-05-13] MEDS: rOPINIRole HCl 1 MG TAB PO SCH ×3 (08:41→20:50)
[2020-05-13] MEDS: Sulfameth/Trimethoprim DS 800-160mg TAB PER TUBE SCH ×2 (08:42→20:51)
[2020-05-13] MEDS: Multivitamin W/ Minerals 1 TAB PO SCH (08:42)
--- NOTE | 2020-05-13 08:45 | RAD ---
PORTABLE CHEST; Date: 05/13/2020 HISTORY: Pneumonia follow-up. COMPARISON: 05/12/2020. FINDINGS: Bibasilar infiltrates. Opacification of left lung base obscures the hemidiaphragm. Evidence of bilate ral effusions. ET tube, NG tube, and central line are unchanged. IMPRESSION: Bibasilar infiltrates again noted, not significantly changed. POS: AGW
[2020-05-13] MEDS: Losartan 25 MG TAB PER TUBE SCH (08:50)
[2020-05-13] MEDS: Pantoprazole 40 MG GRANULES PACKET PO SCH (08:50)
--- NOTE | 2020-05-13 08:54 | PRG ---
DATE OF SERVICE: 05/13/2020 35 minutes critical care time. SUBJECTIVE: This patient remains on mechanical ventilation in pressure support mode. She is actually not needing much help at all. The main issue is her altered mental status. PHYSICAL EXAMINATION: VITAL SIGNS: Her temperature is 98.8, pulse 50, blood pressure 92/49, O2 saturation 98%. 24-hour intake 2319, output 1955. HEENT: Unremarkable. NECK: No adenopathy or JVD. LUNGS: Diminished breath sounds. CARDIAC: S1, S2. Bradycardic. ABDOMEN: Soft. EXTREMITIES: Edematous. LABORATORY DATA: Sodium 140, potassium 4.2, chloride 104, CO2 of 26, BUN 38, creatinine 1.6, glucose 105. White blood cell count 15, hematocrit 28, and platelet count 238. IMAGING: Chest x-ray shows cardiomegaly, minimal infiltrate. ASSESSMENT: 1. COVID-19 pneumonia - better. 2. Acute respiratory failure, requiring mechanical ventilation. 3. Continued altered mental status. 4. Bradycardia. PLAN: Again, the main issue preventing her from coming off the ventilator is neuromuscular weakness. I do not have any confidence that she would have the neurologic strength to handle her secretions or keep her airway clear once she is extubated. I have spoken with the family and I think the patient is going to require tracheostomy. She will be day 20 on Saturday. Unless things dramatically change, we should plan for a trach on Saturday or Saturday next week. Job ID: [id number]
[2020-05-13] MEDS: Zinc Sulfate 220 MG CAP PO SCH (20:49)
[2020-05-13] MEDS: Atorvastatin Calcium 20 MG TAB PO SCH (20:51)
[2020-05-14] MEDS: Levothyroxine 150 MCG TAB PER TUBE SCH (05:05)
[2020-05-14] MEDS: Propofol 1,000 MG/100 ML VIAL IV PRN ×3 (05:05→15:26)
[2020-05-14 05:33] LABS: Anion Gap 16 mmol/L (10-20); BUN (Urea Nitrogen) 40 mg/dL (9.8-20.1); Calc. Creatinine Clearance 57 mL/min (70-130); Calcium 8.7 mg/dL (7.8-10.44); Carbon Dioxide 25 mmol/L (23-31); Chloride 104 mmol/L (98-107); Glucose 100 mg/dL (83-110); Potassium 4.3 mmol/L (3.5-5.1); Sodium 141 mmol/L (136-145)
[2020-05-14 05:49] LABS: Eosinophils 2 % (0-10); Hemoglobin 8.4 g/dL (12.0-16.0); Lymphocytes 28 % (21-51); MDiff Complete? YES; Mean Corpuscular HGB CONC 31.8 g/dL (32.0-36.0); Mean Corpuscular Hemoglobin 28.6 pg (27.0-31.0); Mean Platelet Volume 10.9 fL (7.4-10.4); Monocytes 3 % (0-10); Neutrophil 67 % (42-75); Platelet Count 213 thou/uL (130-400); Platelet Morphology Comment Appears Adequate; Red Blood Cell (RBC) Count 2.95 mill/uL (4.20-5.40); White Blood Cell (WBC) Count 13.5 thou/uL (4.8-10.8)
--- NOTE | 2020-05-14 08:55 | RAD ---
CHEST 1 VIEW: Date: 05/14/2020 INDICATION: History of pneumonia. COMPARISON: Prior exam dated 05/13/2020. IMPRESSION: Bilateral lower lobe opacities persist. The patient remains intubated with gastric catheter placement . Neck soft tissues limits evaluation of the upper lungs. Right-sided central venous catheter is erik lar appearing. No definite pneumothorax is evident. POS: BH
[2020-05-14] MEDS: hydrALAZINE 25 MG TAB PER TUBE SCH ×3 (09:29→20:13)
[2020-05-14] MEDS: Allopurinol 300 MG TAB PO SCH (09:29)
[2020-05-14] MEDS: Clopidogrel Bisulfate 75 MG TAB PO SCH (09:29)
[2020-05-14] MEDS: Multivitamin W/ Minerals 1 TAB PO SCH (09:29)
[2020-05-14] MEDS: Pantoprazole 40 MG GRANULES PACKET PO SCH (09:30)
[2020-05-14] MEDS: Sulfameth/Trimethoprim DS 800-160mg TAB PER TUBE SCH (09:30)
[2020-05-14] MEDS: Losartan 25 MG TAB PER TUBE SCH (09:30)
[2020-05-14] MEDS: busPIRone HCl 5 MG TAB PER TUBE SCH ×3 (09:31→20:20)
[2020-05-14] MEDS: Amlodipine 10 MG TAB PER TUBE SCH (09:31)
[2020-05-14] MEDS: Heparin 5,000 UNITS/ML VIAL SC SCH ×3 (09:32→20:21)
[2020-05-14] MEDS: Potassium Bicarbonate/Cit Ac 20 MEQ TAB PER TUBE SCH ×2 (09:32→20:13)
[2020-05-14] MEDS: Aspirin 325 MG TAB PO SCH (09:32)
[2020-05-14] MEDS: Dexamethasone 4 mg/ml Vial SLOW IVP SCH (09:32)
[2020-05-14] MEDS: CeleCOXIB 100 MG CAP PER TUBE SCH (09:33)
[2020-05-14] MEDS: rOPINIRole HCl 1 MG TAB PO SCH ×3 (09:34→20:13)
[2020-05-14] MEDS: Ezetimibe 10 MG TAB PO SCH (09:34)
[2020-05-14] MEDS: Acetaminophen 650 MG/20.3 ML UDCUP PER TUBE SCH ×2 (15:26→20:12)
--- NOTE | 2020-05-14 16:30 | PRG ---
DATE OF SERVICE: 05/14/2020 SUBJECTIVE: She still remains ventilated. OBJECTIVE: VITAL SIGNS: Heart rate is in the 70s, blood pressure 108/51, respiratory rate is in the 20s. She is only on 24% oxygen. GENERAL: She does have physical exam findings of extreme respiratory muscle weakness. LUNGS: Remarkable for coarse equal breath sounds. HEART: Regular rhythm. ABDOMEN: Soft. EXTREMITIES: Without asymmetry or edema. LABORATORY DATA: White count 13.5, hemoglobin 8.4, platelets 213. Electrolytes are normal. BUN 40, creatinine 1.86 and it was 1.61 yesterday. Intake and output were positive 253. IMPRESSION: Respiratory failure with muscle weakness. She did have significant muscle weakness. She would probably tolerate extubation. I suspect her renal function will stabilize. Medications have been reviewed. She is not on diuretics. She is on the low-dose steroids. She is on baby aspirin. I removed paralytic from JUN. I would recommend withholding the Bactrim with her creatinine creeping up. She remains on subcu heparin. We will follow. Critical care time 30 min. Job ID: [id number] MTDD
--- NOTE | 2020-05-14 18:16 | EKG ---
Test Reason : Blood Pressure : / mmHG Vent. Rate : 098 BPM Atrial Rate : 098 BPM P-R Int : 152 ms QRS Dur : 082 ms QT Int : 336 ms P-R-T Axes : 042 048 081 degrees QTc Int : 428 ms Normal sinus rhythm Possible Left atrial enlargement Borderline ECG Confirmed by EUGENIO SARKAR M.D. ([id number]), senior editor CORNELL BAUER ([id number]) on 05/14/2020 6:16:34 PM Referred By: Confirmed By:EUGENIO SARKAR M.D.
[2020-05-14] MEDS: Zinc Sulfate 220 MG CAP PO SCH (20:13)
[2020-05-14] MEDS: Atorvastatin Calcium 20 MG TAB PO SCH (20:18)
[2020-05-15] MEDS: Scopolamine 1.5 mg/72 hour Patch TOP SCH (02:10)
[2020-05-15] MEDS: Acetaminophen 650 MG/20.3 ML UDCUP PER TUBE SCH ×4 (02:11→19:53)
[2020-05-15] MEDS: Propofol 1,000 MG/100 ML VIAL IV PRN ×5 (02:15→21:15)
[2020-05-15 05:24] LABS: Eosinophils 4 % (0-10); Hemoglobin 8.6 g/dL (12.0-16.0); Lymphocytes 23 % (21-51); MDiff Complete? YES; Mean Corpuscular HGB CONC 33.4 g/dL (32.0-36.0); Mean Corpuscular Hemoglobin 30.4 pg (27.0-31.0); Mean Corpuscular Volume 91.2 fL (78.0-98.0); Mean Platelet Volume 10.3 fL (7.4-10.4); Monocytes 3 % (0-10); Neutrophil 70 % (42-75); Platelet Count 179 thou/uL (130-400); Platelet Morphology Comment Appears Adequate; RBC Distribution Width 16.1 % (11.5-14.5); Red Blood Cell (RBC) Count 2.84 mill/uL (4.20-5.40); White Blood Cell (WBC) Count 17.7 thou/uL (4.8-10.8)
[2020-05-15 05:29] LABS: Anion Gap 14 mmol/L (10-20); BUN (Urea Nitrogen) 39 mg/dL (9.8-20.1); Calc. Creatinine Clearance 49 mL/min (70-130); Calcium 8.8 mg/dL (7.8-10.44); Carbon Dioxide 25 mmol/L (23-31); Chloride 105 mmol/L (98-107); Glucose 103 mg/dL (83-110); Potassium 4.1 mmol/L (3.5-5.1); Sodium 140 mmol/L (136-145)
[2020-05-15] MEDS: Levothyroxine 150 MCG TAB PER TUBE SCH (06:42)
--- NOTE | 2020-05-15 08:20 | RAD ---
CHEST 1 VIEW: Date: 05/15/2020 INDICATION: History of pneumonia. COMPARISON: Prior exam dated 05/14/2020. IMPRESSION: Basilar air space disease persists, but is improved within the right lung base. Cardiomegaly is stabl e. Right IJ central venous catheter, gastric catheter, and ET tube are unchanged. No pneumothorax is evident. POS: BH
[2020-05-15] MEDS: busPIRone HCl 5 MG TAB PER TUBE SCH ×3 (09:23→19:54)
[2020-05-15] MEDS: Aspirin 325 MG TAB PO SCH (09:23)
[2020-05-15] MEDS: hydrALAZINE 25 MG TAB PER TUBE SCH ×3 (09:23→19:55)
[2020-05-15] MEDS: Allopurinol 300 MG TAB PO SCH (09:24)
[2020-05-15] MEDS: Amlodipine 10 MG TAB PER TUBE SCH (09:24)
[2020-05-15] MEDS: Potassium Bicarbonate/Cit Ac 20 MEQ TAB PER TUBE SCH ×2 (09:24→19:55)
[2020-05-15] MEDS: Heparin 5,000 UNITS/ML VIAL SC SCH ×3 (09:24→19:55)
[2020-05-15] MEDS: rOPINIRole HCl 1 MG TAB PO SCH ×3 (09:24→19:56)
[2020-05-15] MEDS: Clopidogrel Bisulfate 75 MG TAB PO SCH (09:24)
[2020-05-15] MEDS: Ezetimibe 10 MG TAB PO SCH (09:24)
[2020-05-15] MEDS: Multivitamin W/ Minerals 1 TAB PO SCH (09:24)
[2020-05-15] MEDS: Pantoprazole 40 MG GRANULES PACKET PO SCH (09:24)
[2020-05-15] MEDS: Dexamethasone 4 mg/ml Vial SLOW IVP SCH (09:25)
[2020-05-15] MEDS: Losartan 25 MG TAB PER TUBE SCH (09:40)
[2020-05-15] MEDS: Sodium Chloride 0.45% 1,000 ML IV SCH ×2 (13:00→22:01)
--- NOTE | 2020-05-15 14:37 | PRG ---
DATE OF SERVICE: 05/15/2020 SUBJECTIVE: Ms. Clark is awake and she is very interactive when she is awake. OBJECTIVE: VITAL SIGNS: Respiratory rates in the high 20s, FiO2 is only 24%, blood pressure 115/58. LUNGS: Remarkable for equal breath sounds. HEART: Regular rhythm. ABDOMEN: Soft. EXTREMITIES: Without edema. LABORATORY DATA: Chest x-ray still shows bilateral alveolar infiltrates. There may be an improvement at her right greater than her left base. White count 17.7, hemoglobin 8.6, platelets 179. Electrolytes are unremarkable. Creatinine is 2.11. Her Bactrim was discontinued yesterday. I have added IV fluids since her creatinine continues to rise. IMPRESSION: 1. Respiratory failure with COVID pneumonia. 2. Acute on chronic kidney disease. PLAN: She was not significantly overweight. She might actually be weanable from mechanical ventilation. We will just continue to follow her clinically. Deconditioning and her obesity are major factors in making decisions regarding an attempted extubation or tracheostomy. Given the duration of her illness, tracheostomy is probably the best option. She is currently only on 21/08. Job ID: [id number]
[2020-05-15] MEDS: Zinc Sulfate 220 MG CAP PO SCH (19:54)
[2020-05-15] MEDS: Atorvastatin Calcium 20 MG TAB PO SCH (19:54)
[2020-05-16] MEDS: Acetaminophen 650 MG/20.3 ML UDCUP PER TUBE SCH ×4 (02:21→19:46)
[2020-05-16] MEDS: Propofol 1,000 MG/100 ML VIAL IV PRN ×4 (04:21→20:10)
[2020-05-16 04:50] LABS: Anion Gap 16 mmol/L (10-20); BUN (Urea Nitrogen) 38 mg/dL (9.8-20.1); Calc. Creatinine Clearance 55 mL/min (70-130); Calcium 8.6 mg/dL (7.8-10.44); Carbon Dioxide 23 mmol/L (23-31); Chloride 105 mmol/L (98-107); Glucose 101 mg/dL (83-110); Sodium 140 mmol/L (136-145)
[2020-05-16 04:51] LABS: Band 2 % (5-11); Hemoglobin 7.8 g/dL (12.0-16.0); Hypochromia SLIGHT = 6-15 cells (100X) (0-5/hpf); Lymphocytes 25 % (21-51); MDiff Complete? YES; Mean Corpuscular HGB CONC 32.2 g/dL (32.0-36.0); Mean Corpuscular Volume 90.1 fL (78.0-98.0); Mean Platelet Volume 10.7 fL (7.4-10.4); Monocytes 2 % (0-10); Neutrophil 71 % (42-75); Platelet Count 173 thou/uL (130-400); Platelet Morphology Comment Appears Adequate; RBC Distribution Width 16.2 % (11.5-14.5); Red Blood Cell (RBC) Count 2.67 mill/uL (4.20-5.40); White Blood Cell (WBC) Count 14.5 thou/uL (4.8-10.8)
--- NOTE | 2020-05-16 08:48 | RAD ---
AP CHEST: Date: 05/16/2020 HISTORY: Pneumonia. COMPARISON: 05/15/2020. FINDINGS: Exam is limited due to positioning. ET tube and NG tube are again noted. Cardiomegaly. Hazy infiltrat e in the lung bases. There is evidence of bilateral effusions. The left CP angle is not included on t his study. IMPRESSION: Limited exam without evidence of significant change from the 05/15/2020 study. POS: AGW
[2020-05-16] MEDS: busPIRone HCl 5 MG TAB PER TUBE SCH ×3 (08:55→20:05)
[2020-05-16] MEDS: Clopidogrel Bisulfate 75 MG TAB PO SCH (08:55)
[2020-05-16] MEDS: Ezetimibe 10 MG TAB PO SCH (08:55)
[2020-05-16] MEDS: Potassium Bicarbonate/Cit Ac 20 MEQ TAB PER TUBE SCH ×2 (08:55→20:06)
[2020-05-16] MEDS: rOPINIRole HCl 1 MG TAB PO SCH ×3 (08:56→20:06)
[2020-05-16] MEDS: hydrALAZINE 25 MG TAB PER TUBE SCH ×3 (08:56→20:05)
[2020-05-16] MEDS: Multivitamin W/ Minerals 1 TAB PO SCH (08:56)
[2020-05-16] MEDS: Aspirin 325 MG TAB PO SCH (08:56)
[2020-05-16] MEDS: Amlodipine 10 MG TAB PER TUBE SCH (08:56)
[2020-05-16] MEDS: Pantoprazole 40 MG GRANULES PACKET PO SCH (08:56)
[2020-05-16] MEDS: Heparin 5,000 UNITS/ML VIAL SC SCH ×3 (08:57→20:06)
[2020-05-16] MEDS: Levothyroxine 100 MCG SDV SLOW IVP SCH (08:58)
[2020-05-16] MEDS: Sodium Chloride 0.45% 1,000 ML IV SCH ×2 (08:58→19:47)
[2020-05-16] MEDS: Dexamethasone 4 mg/ml Vial SLOW IVP SCH (08:58)
--- NOTE | 2020-05-16 09:40 | PRG ---
DATE OF SERVICE: 05/16/2020 SUBJECTIVE: The patient remains intubated on mechanical ventilation. She has now been placed on a rate, because she became tachypneic on CPAP. OBJECTIVE: VITAL SIGNS: Her temperature is 98.2, pulse 56, blood pressure 150/63, O2 sat 100%. NEUROLOGICAL: She will wake up. She tries to punch me. She gets very agitated when I tried to suction her. HEENT: Otherwise unremarkable. NECK: No JVD. LUNGS: Clear anteriorly. CARDIAC: S1, S2. Regular. ABDOMEN: Soft. EXTREMITIES: No edema. LABORATORY DATA: Her x-ray shows cardiomegaly, improving infiltrates. White blood cell count 14.5, hematocrit 24, platelet count 173. Sodium 140, potassium 4, chloride 105, CO2 of 23, BUN 38, creatinine 1.9, glucose 101. ASSESSMENT: 1. COVID-19 pneumonia. 2. Acute hypoxic respiratory failure. 3. Dementia. PLAN: Tomorrow will be hospital day 20. I would suggest we proceed with a tracheostomy if okay with Dr. Murillo. I will try to discuss with him. Job ID: [id number]
[2020-05-16] MEDS: Zinc Sulfate 220 MG CAP PO SCH (19:47)
[2020-05-16] MEDS: Atorvastatin Calcium 20 MG TAB PO SCH (20:05)
[2020-05-16] MEDS: Ziprasidone 20 MG VIAL IM PRN (21:20)
[2020-05-16] MEDS ORDERED: Bacteriostatic Normal Saline 30 ML VIAL ONE (21:22)
[2020-05-17] MEDS: Propofol 1,000 MG/100 ML VIAL IV PRN ×6 (00:07→20:40)
[2020-05-17] MEDS: Acetaminophen 650 MG/20.3 ML UDCUP PER TUBE SCH ×4 (01:03→20:39)
[2020-05-17] MEDS: Sodium Chloride 0.45% 1,000 ML IV SCH ×3 (03:23→23:10)
[2020-05-17 04:41] LABS: Band 1 % (5-11); Eosinophils 3 % (0-10); Hemoglobin 7.7 g/dL (12.0-16.0); Lymphocytes 28 % (21-51); MDiff Complete? YES; Mean Corpuscular HGB CONC 32.8 g/dL (32.0-36.0); Mean Corpuscular Hemoglobin 29.5 pg (27.0-31.0); Mean Corpuscular Volume 89.9 fL (78.0-98.0); Mean Platelet Volume 10.6 fL (7.4-10.4); Monocytes 7 % (0-10); Neutrophil 61 % (42-75); Platelet Count 159 thou/uL (130-400); Platelet Morphology Comment Appears Adequate; RBC Distribution Width 16.2 % (11.5-14.5); Red Blood Cell (RBC) Count 2.61 mill/uL (4.20-5.40); White Blood Cell (WBC) Count 11.2 thou/uL (4.8-10.8)
[2020-05-17 04:44] LABS: Anion Gap 15 mmol/L (10-20); BUN (Urea Nitrogen) 33 mg/dL (9.8-20.1); Calc. Creatinine Clearance 75 mL/min (70-130); Calcium 8.7 mg/dL (7.8-10.44); Carbon Dioxide 22 mmol/L (23-31); Chloride 106 mmol/L (98-107); Glucose 94 mg/dL (83-110); Potassium 3.8 mmol/L (3.5-5.1); Sodium 139 mmol/L (136-145)
--- NOTE | 2020-05-17 07:57 | RAD ---
RADIOGRAPH CHEST 1 VIEW: DATE: 05/17/2020 TIME: 3:55 AM HISTORY: 75-year-old female with pneumonia follow-up COMPARISON: 05/16/2020 FINDINGS: Limited study because of body habitus. Shallow inspiration. Moderately large region of increased atte nuation at left lower lung zone apparently consolidation. Apparent right IJ central line, ETT, and NGT remain. No large pneumothorax. Haziness at right base. No interval change detected. IMPRESSION: No interval change detected
[2020-05-17] MEDS: Dexamethasone 4 mg/ml Vial SLOW IVP SCH (08:18)
[2020-05-17] MEDS: Clopidogrel Bisulfate 75 MG TAB PO SCH (08:19)
[2020-05-17] MEDS: Ezetimibe 10 MG TAB PO SCH (08:19)
[2020-05-17] MEDS: Multivitamin W/ Minerals 1 TAB PO SCH (08:19)
[2020-05-17] MEDS: busPIRone HCl 5 MG TAB PER TUBE SCH ×3 (08:19→20:39)
[2020-05-17] MEDS: rOPINIRole HCl 1 MG TAB PO SCH ×3 (08:19→20:39)
[2020-05-17] MEDS: Heparin 5,000 UNITS/ML VIAL SC SCH ×3 (08:20→20:40)
[2020-05-17] MEDS: hydrALAZINE 25 MG TAB PER TUBE SCH ×3 (08:20→20:39)
[2020-05-17] MEDS: cloNIDine 0.2mg/24 Hour PATCH TD SCH (08:20)
[2020-05-17] MEDS: Aspirin 325 MG TAB PO SCH (08:21)
[2020-05-17] MEDS: Amlodipine 10 MG TAB PER TUBE SCH (08:21)
[2020-05-17] MEDS: Levothyroxine 100 MCG SDV SLOW IVP SCH (08:22)
[2020-05-17] MEDS: Pantoprazole 40 MG GRANULES PACKET PO SCH (08:23)
[2020-05-17] MEDS: Potassium Bicarbonate/Cit Ac 20 MEQ TAB PER TUBE SCH ×2 (08:28→20:40)
--- NOTE | 2020-05-17 09:16 | PRG ---
DATE OF SERVICE: 05/17/2020 SUBJECTIVE: The patient remains intubated on mechanical ventilation. She is more awake today than she has been. I turned down her ventilator to a pressure support 10, and she could only pull about 100 to 200 mL tidal volumes, but her respiratory rate shot up in the mid 40s. OBJECTIVE: VITAL SIGNS: Otherwise, on exam, temperature 97.3, pulse 59, blood pressure 140/66, O2 saturation 100%. HEENT: Unremarkable. NECK: No JVD. LUNGS: Fairly clear anteriorly. CARDIAC: S1 and S2. Regular. ABDOMEN: Soft. EXTREMITIES: Edematous. IMAGING DATA: Her chest x-ray shows no change. She has mainly cardiomegaly. Her lung kilgore are getting more clear. LABORATORY DATA: Sodium 139, potassium 3.8, chloride 106, CO2 of 22, BUN 33, creatinine 1.4, and glucose 94. White blood cell count 11.2, hematocrit 23.4, and platelet count 159. ASSESSMENT: 1. COVID-19 pneumonia. 2. Acute hypoxic respiratory failure, requiring mechanical ventilation. 3. Severe neuromuscular weakness. 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 RECOMMENDATIONS: I would recommend the patient have a tracheostomy placed. Discussed this with the patient's daughter yesterday. I recommended they have family come up and see her because it sounds like there was some disagreement on how to proceed. I do not think this patient would do well extubated in the conventional sense because her neuromuscular weakness is profound. Job ID: [id number]
[2020-05-17] MEDS: Zinc Sulfate 220 MG CAP PO SCH (20:39)
[2020-05-17] MEDS: Atorvastatin Calcium 20 MG TAB PO SCH (20:39)
[2020-05-18] MEDS: Propofol 1,000 MG/100 ML VIAL IV PRN ×7 (02:08→22:31)
[2020-05-18] MEDS: Acetaminophen 650 MG/20.3 ML UDCUP PER TUBE SCH ×4 (02:09→20:18)
[2020-05-18] MEDS: Scopolamine 1.5 mg/72 hour Patch TOP SCH (02:09)
[2020-05-18 04:15] LABS: Hemoglobin 8.8 g/dL (12.0-16.0); Mean Corpuscular HGB CONC 32.1 g/dL (32.0-36.0); Mean Corpuscular Hemoglobin 29.3 pg (27.0-31.0); Mean Corpuscular Volume 91.2 fL (78.0-98.0); Mean Platelet Volume 10.7 fL (7.4-10.4); Platelet Count 189 thou/uL (130-400); RBC Distribution Width 16.5 % (11.5-14.5); Red Blood Cell (RBC) Count 3.01 mill/uL (4.20-5.40); White Blood Cell (WBC) Count 14.6 thou/uL (4.8-10.8)
[2020-05-18 04:16] LABS: Eosinophils 6 % (0-10); Hypochromia SLIGHT = 6-15 cells (100X) (0-5/hpf); Lymphocytes 26 % (21-51); MDiff Complete? YES; Monocytes 2 % (0-10); Neutrophil 66 % (42-75); Platelet Morphology Comment Appears Adequate
[2020-05-18 04:20] LABS: Anion Gap 15 mmol/L (10-20); BUN (Urea Nitrogen) 30 mg/dL (9.8-20.1); Calc. Creatinine Clearance 93 mL/min (70-130); Calcium 9.3 mg/dL (7.8-10.44); Carbon Dioxide 22 mmol/L (23-31); Chloride 106 mmol/L (98-107); Glucose 105 mg/dL (83-110); Potassium 3.8 mmol/L (3.5-5.1); Sodium 139 mmol/L (136-145)
--- NOTE | 2020-05-18 08:51 | RAD ---
CHEST 1 VIEW: COMPARISON: 05/17/2020. HISTORY: Pneumonia. FINDINGS: Redemonstration of a right-sided jugular vascular catheter, endotracheal tube, and nasogastric tube. There is atherosclerosis of the aorta. There is cardiomegaly. Opacification of the left lung base does remain suggesting pleural and parenchymal changes. No pneumothorax. IMPRESSION: No significant interval change. POS: PPP
--- NOTE | 2020-05-18 09:22 | PRG ---
DATE OF SERVICE: 05/18/2020 SUBJECTIVE: Ms. Clark remains on mechanical ventilation after prolonged COVID pneumonia. She will wake up, nod and shake her head. She was placed on spontaneous breathing mode on mechanical ventilation with CPAP 5, pressure support 10, but was only able to pull about 190 mL tidal volumes. PHYSICAL EXAMINATION: VITAL SIGNS: Her pulse is 65, blood pressure 178/91, O2 sats 100%, respiratory rate 18. HEENT: Unchanged. NECK: No JVD. LUNGS: Fairly clear breath sounds. CARDIAC: S1 and S2. Regular. ABDOMEN: Soft. EXTREMITIES: No edema. LABORATORY DATA: White blood cell count 14.6, hematocrit 27.4, and platelet count 189. Sodium 139, potassium 3.8, chloride 106, CO2 of 22, BUN 30, creatinine 1.1, glucose 105. IMAGING STUDIES: Her chest x-ray is fairly clear. ASSESSMENT: 1. COVID-19 pneumonia. 2. Profound neuromuscular weakness. 3. Acute respiratory failure requiring mechanical ventilation. PLAN: Spoke with the patient's daughter on the phone with Aubrie, who lives in [place], and is the personnel consultant for the family. Other family members did come to see the patient yesterday and confirmed with the patient she would warrant tracheostomy and feeding tube placement in order to get better. I think tracheostomy is absolutely needed to facilitate weaning her from mechanical ventilation. After that, we can make a referral to LTAC. I have spoken with Dr. Ryan, who plans on doing the procedure tomorrow. Job ID: [id number]
[2020-05-18] MEDS: Dexamethasone 4 mg/ml Vial SLOW IVP SCH (09:31)
[2020-05-18] MEDS: Ezetimibe 10 MG TAB PO SCH (09:32)
[2020-05-18] MEDS: Pantoprazole 40 MG GRANULES PACKET PO SCH (09:32)
[2020-05-18] MEDS: Aspirin 325 MG TAB PO SCH (09:33)
[2020-05-18] MEDS: Amlodipine 10 MG TAB PER TUBE SCH (09:34)
[2020-05-18] MEDS: Clopidogrel Bisulfate 75 MG TAB PO SCH (09:34)
[2020-05-18] MEDS: busPIRone HCl 5 MG TAB PER TUBE SCH ×3 (09:35→20:18)
[2020-05-18] MEDS: hydrALAZINE 25 MG TAB PER TUBE SCH ×3 (09:35→20:17)
[2020-05-18] MEDS: Multivitamin W/ Minerals 1 TAB PO SCH (09:36)
[2020-05-18] MEDS: Potassium Bicarbonate/Cit Ac 20 MEQ TAB PER TUBE SCH ×2 (09:36→20:18)
[2020-05-18] MEDS: Levothyroxine 100 MCG SDV SLOW IVP SCH (09:52)
[2020-05-18] MEDS: rOPINIRole HCl 1 MG TAB PO SCH ×3 (09:53→20:17)
[2020-05-18] MEDS: Sodium Chloride 0.45% 1,000 ML IV SCH ×2 (10:56→20:14)
[2020-05-18] MEDS: Zinc Sulfate 220 MG CAP PO SCH (20:17)
[2020-05-18] MEDS: Atorvastatin Calcium 20 MG TAB PO SCH (20:18)
[2020-05-19] MEDS: Acetaminophen 650 MG/20.3 ML UDCUP PER TUBE SCH ×4 (01:35→20:21)
[2020-05-19] MEDS: Propofol 1,000 MG/100 ML VIAL IV PRN ×3 (02:46→09:30)
[2020-05-19 05:03] LABS: Band 2 % (5-11); Eosinophils 2 % (0-10); Hemoglobin 8.2 g/dL (12.0-16.0); Lymphocytes 16 % (21-51); MDiff Complete? YES; Mean Corpuscular HGB CONC 31.9 g/dL (32.0-36.0); Mean Corpuscular Hemoglobin 29.2 pg (27.0-31.0); Mean Corpuscular Volume 91.6 fL (78.0-98.0); Mean Platelet Volume 10.6 fL (7.4-10.4); Neutrophil 80 % (42-75); Platelet Count 174 thou/uL (130-400); Platelet Morphology Comment Appears Adequate; RBC Distribution Width 16.8 % (11.5-14.5); Red Blood Cell (RBC) Count 2.81 mill/uL (4.20-5.40); White Blood Cell (WBC) Count 17.9 thou/uL (4.8-10.8)
[2020-05-19 05:13] LABS: Anion Gap 14 mmol/L (10-20); BUN (Urea Nitrogen) 21 mg/dL (9.8-20.1); Calc. Creatinine Clearance 103 mL/min (70-130); Calcium 8.9 mg/dL (7.8-10.44); Carbon Dioxide 21 mmol/L (23-31); Chloride 107 mmol/L (98-107); Glucose 81 mg/dL (83-110); Potassium 3.8 mmol/L (3.5-5.1); Sodium 138 mmol/L (136-145)
[2020-05-19] MEDS: Sodium Chloride 0.45% 1,000 ML IV SCH ×2 (05:57→20:20)
[2020-05-19] MEDS: Pantoprazole 40 MG GRANULES PACKET PO SCH (08:19)
[2020-05-19] MEDS: Aspirin 325 MG TAB PO SCH (08:19)
[2020-05-19] MEDS: Potassium Bicarbonate/Cit Ac 20 MEQ TAB PER TUBE SCH ×2 (08:19→20:22)
[2020-05-19] MEDS: Multivitamin W/ Minerals 1 TAB PO SCH (08:19)
[2020-05-19] MEDS: hydrALAZINE 25 MG TAB PER TUBE SCH ×4 (08:20→23:26)
[2020-05-19] MEDS: Dexamethasone 4 mg/ml Vial SLOW IVP SCH ×2 (08:20→10:00)
[2020-05-19] MEDS: busPIRone HCl 5 MG TAB PER TUBE SCH ×3 (08:20→20:21)
--- NOTE | 2020-05-19 08:20 | RAD ---
PORTABLE CHEST: INDICATION: Pneumonia followup. COMPARISON: 05/18/2020. FINDINGS/IMPRESSION: ET tube has tip just above zachariah. NG Tube again noted. Central line again noted. Bibasilar infiltrates more pronounced on the left with opacification obscuring the left hemidiaphragm . Cardiomegaly. Vascular engorgement. No acute interval change in the chest. POS: AGW
[2020-05-19] MEDS: Ezetimibe 10 MG TAB PO SCH (08:21)
[2020-05-19] MEDS: Amlodipine 10 MG TAB PER TUBE SCH (08:21)
[2020-05-19] MEDS: Levothyroxine 100 MCG SDV SLOW IVP SCH (08:24)
[2020-05-19] MEDS: rOPINIRole HCl 1 MG TAB PO SCH ×3 (08:24→20:22)
[2020-05-19] MEDS ORDERED: CEFAZOLIN 2 GM in Premix Bag 1 BAG IVPB SCH (09:00)
--- NOTE | 2020-05-19 09:07 | PRG ---
DATE OF SERVICE: 05/19/2020 SUBJECTIVE: She remains intubated, on mechanical ventilation. She is scheduled for trach and PEG tube later today. OBJECTIVE: VITAL SIGNS: Temperature 99.4, pulse 62, blood pressure 143/63. 24-hour intake 4136, output 3320. HEENT: Unchanged. LUNGS: Distant breath sounds. CARDIAC: S1 and S2, regular, bradycardic. ABDOMEN: Obese, soft, nontender. EXTREMITIES: Edematous. LABORATORY DATA: White blood cell count 17.9, hematocrit 25.7, and platelet count 174. Sodium 138, potassium 3.8, chloride 107, CO2 of 21, BUN 21, creatinine 1.0, glucose 81. Chest x-ray demonstrates ET-tube in good position, cardiomegaly, clearing infiltrates. ASSESSMENT: 1. COVID-19 pneumonia. 2. Prolonged acute respiratory failure, requiring mechanical ventilation. 3. Morbid obesity. 4. Severe neuromuscular weakness. PLAN: 1. Tracheostomy and feeding tube placement today. 2. Switch propofol over to Versed. 3. Reduce steroid dose, hopefully stop that by next week. Job ID: [id number]
--- NOTE | 2020-05-19 09:26 | CON ---
DATE OF CONSULTATION: 05/19/2020 CONSULTING PHYSICIAN: Raymundo Triana MD REASON FOR CONSULTATION: Coronavirus-associated respiratory failure, morbid obesity. HISTORY OF PRESENT ILLNESS: The patient is a 75-year-old massively obese black female. Her current BMI is about 57. She has been hospitalized since April 27 with respiratory failure associated with COVID. She has a long history of medical problems, mostly associated with her obesity. She has been intubated since her arrival and she remains intubated at this time. She has, therefore, been on the ventilator for 21 days. She is felt to be stable to proceed with tracheostomy and PEG tube placement, and for this reason, I am consulted. The patient is resting comfortably on the ventilator currently. PAST MEDICAL HISTORY: 1. Morbid obesity. 2. Coronary artery disease. 3. Hypothyroidism. 4. Gastroesophageal reflux. 5. Hypertension. 6. Osteoarthritis. 7. History of stroke. 8. COPD. 9. Asthma. 10. DVT. 11. Spinal stenosis. PAST SURGICAL HISTORY: 1. Carpal tunnel surgery. 2. Tubal ligation. 3. Cholecystectomy. 4. Pelvic sling surgery. 5. IVC filter placement. PERSONAL AND SOCIAL HISTORY: She formerly smoked, but quit a long time ago. She does not drink alcohol. ALLERGIES: INCLUDE PENICILLIN, BENADRYL, COMPAZINE, PROMETHAZINE, AND JAVI INHIBITORS. MEDICATIONS PRIOR TO ADMISSION: Multiple. PRIMARY CARE PHYSICIAN: Tereso Murillo MD REVIEW OF SYSTEMS: Unobtainable as she is currently ventilated. PHYSICAL EXAMINATION: VITAL SIGNS: Current temperature is 99.4, pulse 61, blood pressure 142/63, she is on ventilator with FiO2 of 24% and she is currently oxygenating 100% saturation. She, however, is extremely weak and unable to move adequate volumes to be able to be considered for extubation. HEAD, EYES, EARS, NOSE, THROAT: Unremarkable. NECK: She currently has an indwelling right internal jugular central line. Her trachea is palpable, although she has a very fatty neck. LUNGS: Clear to auscultation anteriorly. CARDIAC: Regular rate and rhythm. ABDOMEN: Massively obese. I am told she has a large ventral hernia, but I cannot assess for this currently. She does not have any scars in her upper abdomen. LABORATORY DATA: White blood cell count today is 17.9 with a hemoglobin of 8.2, platelet count is 174. She received a unit of convalescent plasma, but has not been transfused with blood products, otherwise. Her chemistries reveal essentially normal electrolytes. Creatinine is 1.0. ASSESSMENT: The patient with morbid obesity and respiratory failure associated with coronavirus. She is not felt to be weanable from the ventilator and tracheostomy placement is requested for this purpose. It was felt that she will additionally not be able to tolerate oral intake for quite a while and PEG tube placement is requested as well to help with enteral nutrition, which she is currently receiving through a nasogastric tube. The patient seems alert and I discussed the procedure with her somewhat at bedside. Her surgery will be performed today. Job ID: [id number]
[2020-05-19] MEDS: Ziprasidone 20 MG VIAL IM PRN (12:42)
[2020-05-19] MEDS ORDERED: PROPOFOL 200 MG/20 ML VIAL ONE (12:52)
[2020-05-19] MEDS ORDERED: Rocuronium Bromide 10 MG/ML (10ML VIAL) ONE (12:52)
[2020-05-19] MEDS ORDERED: Bupivacaine 0.25% HCL 30 ML VIAL ONE (13:56)
[2020-05-19] MEDS ORDERED: EPINEPHrine 1 MG/ML AMP ONE (13:56)
[2020-05-19] MEDS ORDERED: Lidocaine 1% (PF) 30 ML VIAL ONE (13:56)
[2020-05-19] MEDS ORDERED: Fentanyl 250 MCG/5 ML VIAL ONE (14:25)
[2020-05-19] MEDS ORDERED: Midazolam HCl 5 mg/5 ml Vial ONE (14:25)
[2020-05-19] MEDS ORDERED: Sodium Chloride 0.9% 30 ML ONE (15:06)
--- NOTE | 2020-05-19 16:47 | RAD ---
Portable chest: HISTORY: Central line placement COMPARISON: Film earlier today FINDINGS:Patient is rotated which distorts the chest. Central line via the right subclavian has tip o verlying the upper SVC. Cardiomegaly. Vascular congestion. Small effusions and bibasilar infiltrates. No acute change in the chest.
[2020-05-19] MEDS: Budesonide 0.5 MG/2 ML NEB NEB SCH (18:06)
--- NOTE | 2020-05-19 19:28 | OP ---
DATE OF PROCEDURE: 05/19/2020 PREOPERATIVE DIAGNOSES: Coronavirus-induced respiratory failure, morbid obesity. POSTOPERATIVE DIAGNOSES: Coronavirus-induced respiratory failure, morbid obesity. PROCEDURE PERFORMED: Placement of right subclavian 7-Lithuanian triple-lumen central line, placement of #8 XL Shiley tracheostomy tube, placement of percutaneous endoscopic gastrostomy tube. ANESTHESIA: General endotracheal. INDICATIONS: The patient is a 75-year-old massively obese black female. She has been intubated for the past 3 weeks secondary to respiratory failure associated with coronavirus. Tracheostomy and PEG tube placements have been requested to assist with weaning from the ventilator. New central line will need to be placed due to the proximity of the tracheostomy site to her indwelling right internal jugular central line. DESCRIPTION OF OPERATION: Informed consent was obtained. The patient was taken to the operating room where general endotracheal anesthesia obtained with the patient in the supine position. Attention was turned first to her right chest. She was placed in Trendelenburg position. Her chest was prepped with ChloraPrep and draped in sterile fashion. Large gauge needle was passed under the right clavicle in the subclavian vein. Guidewire was passed through the needle, needle was removed, skin was incised, tract was dilated, and a 7-Lithuanian triple-lumen catheter was passed over the wire. Each of the 3 lumens aspirated blood freely and flushed with sterile saline. The catheter was secured at skin exit site with 3-0 silk suture and sterile occlusive dressing was applied. There were no complications with this portion of the procedure. Attention was then turned to her neck. The right internal jugular catheter was removed and pressure was held on that side for several minutes. The neck was then prepped with ChloraPrep and draped in sterile fashion. Local anesthetic was infiltrated using 0.25% Marcaine with epinephrine. A transverse low collar incision was created. Dissection was carried through skin and subcutaneous tissue. The platysma was divided. She had huge anterior jugular veins and these were divided between clamps and 3-0 silk ties. The strap muscles were identified and dissected off the underlying thyroid and trachea. The inferior portion of the thyroid isthmus was divided with electrocautery. The anterior aspect of the trachea was cleared. The 2nd tracheal ring was identified, and stay sutures were placed on either side of midline using 3-0 Prolene suture. An incision was created in the trachea, and a small window of the 2nd tracheal ring was removed. The size 8 extended length Shiley tracheostomy tube was advanced into the trachea uneventfully and the balloon was insufflated. The Mccook adapter was used to attach the tracheostomy tube to the ventilator circuit. The retractors were removed from within the neck incision. The skin edges were approximated with interrupted sutures of 3-0 nylon. Tracheostomy ties and dressings were applied in the usual fashion. The stay sutures were secured to the upper chest with a Tegaderm dressing. Attention was then turned to her gastrostomy tube. The gastroscope was advanced into the esophagus uneventfully. The stomach was insufflated. I was easily able to identify the external compressions of the abdominal wall in the left upper abdomen. A site was selected, cleansed with ChloraPrep, and anesthetized with 0.25% Marcaine with epinephrine. A small stab incision was created. An Angiocath was passed through this under direct vision into the gastric lumen. The guidewire was passed through the Angiocath and this was retrieved with the snare. The guidewire was then withdrawn through the mouth, where it was secured to the tapered end of the PEG tube. The complex was then pulled through the anterior abdominal wall in the usual pull-through fashion. The circular external flange was placed along with antibiotic ointment and a split gauze dressing. External tube connections were fastened. There were no complications. Blood loss was negligible throughout any of the procedures. She tolerated them all well, was taken back to the intensive care unit in stable condition. Job ID: [id number]
[2020-05-19] MEDS: Zinc Sulfate 220 MG CAP PO SCH (20:22)
[2020-05-19] MEDS: Atorvastatin Calcium 20 MG TAB PO SCH (20:22)
[2020-05-19] MEDS: hydrALAZINE 20 MG/ML VIAL SLOW IVP PRN ×2 (20:23→21:55)
[2020-05-20] MEDS: Sodium Chloride 0.45% 1,000 ML IV SCH ×2 (01:40→12:25)
[2020-05-20] MEDS: Acetaminophen 650 MG/20.3 ML UDCUP PER TUBE SCH ×4 (04:27→21:24)
[2020-05-20 06:34] LABS: Anion Gap 15 mmol/L (10-20); BUN (Urea Nitrogen) 15 mg/dL (9.8-20.1); Calc. Creatinine Clearance 100 mL/min (70-130); Calcium 8.7 mg/dL (7.8-10.44); Carbon Dioxide 19 mmol/L (23-31); Chloride 108 mmol/L (98-107); Glucose 102 mg/dL (83-110); Potassium 3.7 mmol/L (3.5-5.1); Sodium 138 mmol/L (136-145)
[2020-05-20 06:46] LABS: Hemoglobin 8.2 g/dL (12.0-16.0); Mean Corpuscular HGB CONC 32.5 g/dL (32.0-36.0); Mean Corpuscular Hemoglobin 29.3 pg (27.0-31.0); Mean Corpuscular Volume 90.2 fL (78.0-98.0); Mean Platelet Volume 10.3 fL (7.4-10.4); Platelet Count 169 thou/uL (130-400)
[2020-05-20] MEDS: Budesonide 0.5 MG/2 ML NEB NEB SCH ×2 (07:20→18:28)
[2020-05-20 07:47] LABS: Band 1 % (5-11); Eosinophils 2 % (0-10); Lymphocytes 32 % (21-51); MDiff Complete? YES; Monocytes 4 % (0-10); Neutrophil 61 % (42-75); Platelet Morphology Comment Appears Adequate; Polychromasia SLIGHT = 2-3 cells (100X) (0-2/hpf)
--- NOTE | 2020-05-20 08:36 | PRG ---
DATE OF SERVICE: 05/20/2020 SUBJECTIVE: Ms. Clark remains on mechanical ventilation through a tracheostomy. There have been no acute changes overnight except for the fact she had a tracheostomy and feeding tube placed yesterday. I am told she has been accepted to an LTAC, but has to be at least 24 hours after her trach before they will accept her. OBJECTIVE: VITAL SIGNS: Temperature is 99.2, pulse 79, blood pressure 166/83, and her blood pressure has been trending high over the last 24 hours. She is currently on midazolam drip at 6 mg/hour. HEENT: Unremarkable. NECK: No adenopathy or JVD. LUNGS: Clear anteriorly. CARDIAC: S1 and S2. Regular. ABDOMEN: Soft. EXTREMITIES: Mild edema. LABORATORY DATA: Sodium 138, potassium 3.7, chloride 108, CO2 of 19, BUN 15, creatinine 1.1, glucose 102. White blood cell count 15, hematocrit 25.2, and platelet count 169. Her x-ray shows good trach placement, cardiomegaly, and clearing lung kilgore. ASSESSMENT: 1. COVID-19 pneumonia with good clinical improvement with every parameter except for severe neuromuscular weakness. This patient was tried on spontaneous breathing today, but her frequency tidal volume ratio quickly went above 166, so further attempts were aborted. 2. Neuromuscular weakness. 3. Obesity. PLAN: 1. LTAC placement. 2. Really no point in trying to wean the vent much until she gets to the LTAC facility. 3. I will add some labetalol for improved blood pressure coverage. Job ID: [id number]
[2020-05-20] MEDS: Aspirin 325 MG TAB PO SCH (08:45)
[2020-05-20] MEDS: busPIRone HCl 5 MG TAB PER TUBE SCH ×3 (08:45→21:24)
[2020-05-20] MEDS: Pantoprazole 40 MG GRANULES PACKET PO SCH (08:45)
[2020-05-20] MEDS: rOPINIRole HCl 1 MG TAB PO SCH ×3 (08:50→22:16)
[2020-05-20] MEDS: Ezetimibe 10 MG TAB PO SCH (08:50)
[2020-05-20] MEDS: Potassium Bicarbonate/Cit Ac 20 MEQ TAB PER TUBE SCH ×2 (08:50→21:24)
[2020-05-20] MEDS: Labetalol 100 MG TAB PO SCH ×2 (08:50→21:23)
[2020-05-20] MEDS: Dexamethasone 4 mg/ml Vial SLOW IVP SCH (08:50)
[2020-05-20] MEDS: Multivitamin W/ Minerals 1 TAB PO SCH (08:50)
[2020-05-20] MEDS: hydrALAZINE 25 MG TAB PER TUBE SCH ×3 (08:55→21:21)
--- NOTE | 2020-05-20 08:59 | RAD ---
PORTABLE CHEST: Date: 05/20/2020 HISTORY: Pneumonia. CCU follow-up. COMPARISON: 05/19/2020. FINDINGS/IMPRESSION: Tracheostomy device and central line again noted. The patient is rotated, distorting the chest, but w ith similar position from yesterday. Continued opacification of the left lung base obscuring the left hemidiaphragm consistent with left e ffusion and dense left basilar atelectasis and consolidation. Right lung is well-aerated. There may be some patchy infiltrate in the medial right lung base. The va scular congestion appears improved when compared to yesterday. POS: AGW
[2020-05-20] MEDS: Amlodipine 10 MG TAB PER TUBE SCH (10:03)
[2020-05-20] MEDS: Levothyroxine 100 MCG SDV SLOW IVP SCH (10:05)
--- NOTE | 2020-05-20 15:38 | PRG ---
DATE OF SERVICE: 05/20/2020 Ms. Clark is postoperative day #1 from tracheostomy, PEG tube, right subclavian central line placement. The patient has had no problems subsequent to the surgery. She is tolerating her tube feeds uneventfully. She is ventilating with the new tracheostomy tube without problems. Chest x-ray shows good placement of the new line. Examination reveals no obvious problems with any of three operative sites. I am told that she has been accepted and plans are to transfer to a long-term acute care facility in the near future. I will see her on a p.r.n. basis. Job ID: [id number]
[2020-05-20] MEDS: Zinc Sulfate 220 MG CAP PO SCH (21:26)
[2020-05-20] MEDS: Atorvastatin Calcium 20 MG TAB PO SCH (21:26)
[2020-05-21] MEDS: Sodium Chloride 0.45% 1,000 ML IV SCH ×2 (00:43→09:49)
[2020-05-21] MEDS: Acetaminophen 650 MG/20.3 ML UDCUP PER TUBE SCH ×4 (03:28→20:34)
[2020-05-21] MEDS: Scopolamine 1.5 mg/72 hour Patch TOP SCH (03:29)
[2020-05-21 03:33] LABS: Potassium 3.8 mmol/L (3.5-5.1); Sodium 139 mmol/L (136-145)
[2020-05-21 03:34] LABS: Anion Gap 14 mmol/L (10-20); BUN (Urea Nitrogen) 18 mg/dL (9.8-20.1); Calc. Creatinine Clearance 104 mL/min (70-130); Calcium 8.7 mg/dL (7.8-10.44); Carbon Dioxide 21 mmol/L (23-31); Chloride 108 mmol/L (98-107); Glucose 109 mg/dL (83-110)
[2020-05-21 04:42] LABS: Band 1 % (5-11); Eosinophils 3 % (0-10); Hemoglobin 7.6 g/dL (12.0-16.0); Lymphocytes 19 % (21-51); MDiff Complete? YES; Mean Corpuscular HGB CONC 31.9 g/dL (32.0-36.0); Mean Corpuscular Hemoglobin 29.2 pg (27.0-31.0); Mean Corpuscular Volume 91.6 fL (78.0-98.0); Mean Platelet Volume 9.7 fL (7.4-10.4); Monocytes 7 % (0-10); Neutrophil 70 % (42-75); Platelet Count 183 thou/uL (130-400); RBC Distribution Width 16.9 % (11.5-14.5); Red Blood Cell (RBC) Count 2.59 mill/uL (4.20-5.40)
[2020-05-21] MEDS: Budesonide 0.5 MG/2 ML NEB NEB SCH ×2 (07:58→18:21)
[2020-05-21] MEDS: rOPINIRole HCl 1 MG TAB PO SCH ×3 (09:14→20:37)
[2020-05-21] MEDS: Aspirin 325 MG TAB PO SCH (09:14)
[2020-05-21] MEDS: Amlodipine 10 MG TAB PER TUBE SCH (09:14)
[2020-05-21] MEDS: Ezetimibe 10 MG TAB PO SCH (09:15)
[2020-05-21] MEDS: Labetalol 100 MG TAB PO SCH ×2 (09:15→20:36)
[2020-05-21] MEDS: busPIRone HCl 5 MG TAB PER TUBE SCH ×3 (09:16→20:36)
[2020-05-21] MEDS: hydrALAZINE 25 MG TAB PER TUBE SCH ×3 (09:16→20:35)
[2020-05-21] MEDS: Pantoprazole 40 MG GRANULES PACKET PO SCH (09:16)
[2020-05-21] MEDS: Multivitamin W/ Minerals 1 TAB PO SCH (09:16)
[2020-05-21] MEDS: Potassium Bicarbonate/Cit Ac 20 MEQ TAB PER TUBE SCH ×2 (09:16→20:37)
[2020-05-21] MEDS: Dexamethasone 4 mg/ml Vial SLOW IVP SCH (09:18)
[2020-05-21] MEDS ORDERED: Furosemide 20 MG/2 ML VIAL SLOW IVP SCH (09:30)
[2020-05-21] MEDS: Levothyroxine 100 MCG SDV SLOW IVP SCH (09:39)
--- NOTE | 2020-05-21 11:16 | RAD ---
SINGLE VIEW CHEST: Date: 05/21/2020 COMPARISON: 05/20/2020. HISTORY: Pneumonia. FINDINGS: Single view of the chest shows enlarged but stable cardiomediastinal silhouette. The lines and tubes are unchanged in position. There appears to be a left pleural effusion with adjacent atelectasis vers us infiltrates. There may be a patchy infiltrate in the right lung base as well. IMPRESSION: Stable exam. POS: EAA
--- NOTE | 2020-05-21 12:39 | PRG ---
DATE OF SERVICE: 05/21/2020 SUBJECTIVE: Ms. Clark is a 75-year-old morbidly obese woman, history of coronary artery disease, hypothyroidism, essential hypertension, COPD, and depression. The patient was admitted on 04/27/2020 with acute hypoxemic respiratory failure secondary to COVID-19 pneumonia. She has been on full mechanical ventilatory support the entire time. She underwent a tracheostomy tube and percutaneous endoscopic gastrostomy tube placement on 05/19/2020. Currently, she is on no vasopressor or inotropic support. Her urinary output remains adequate for age and weight. OBJECTIVE: VITAL SIGNS: This morning include blood pressure 143/67, pulse is 69, respiratory rate is 27, maximum temperature in the last 24 hours is 100 degrees Fahrenheit, oxygen saturation currently is 100% on FiO2 of 24% on mechanical ventilatory support. HEENT: Pupils are equal, round, and reactive to light bilaterally. NECK: She has no jugular venous distention noted. HEART: Reveals regular rate and rhythm. LUNGS: Reveal bibasilar rhonchi. Breathing regular and nonlabored. ABDOMEN: Soft and obese. She has no tenderness to palpation. EXTREMITIES: Reveal 2+ radial and pedal pulses bilaterally. No ankle edema is present. NEUROLOGIC: Reveals no focal deficits present. LABORATORY FINDINGS: Include a CBC with 14,000 white blood cells, hemoglobin and hematocrit are stable at 7.6 and 23.7 respectively. Platelet count is 183,000. Metabolic profile: Sodium 139, potassium 3.8, chloride is 108, bicarb is 21, BUN is 18, creatinine is 1.03, glucose 109. I reviewed the chest x-ray today, which reveals cardiomegaly with small left pleural effusion and scattered right-sided pulmonary infiltrates without any consolidation. No pneumothorax is present. IMPRESSION: 1. Acute respiratory failure secondary to COVID-19 pneumonia, improving. 2. Acute blood loss anemia, stable. 3. Acute hypokalemia. 4. Likely acute congestive heart failure exacerbation. PLAN: 1. Correct abnormal electrolytes. 2. Continue with mechanical ventilatory support. We will begin ventilatory wean to trach collar as tolerated. 3. We will decrease total fluid intake and initiate gentle diuresis. Monitor urinary output and renal function as endpoint. Total critical care time is 40 minutes. Job ID: [id number]
[2020-05-21] MEDS: Furosemide 20 MG/2 ML VIAL SLOW IVP SCH ×2 (14:00→22:05)
--- NOTE | 2020-05-21 19:08 | PDOC.HOSPP ---
- Subjective Encounter Date: 05/21/20 Encounter Time: 11:30 non-verbal Subjective: Patient seen and examined for respiratory failure. Tolerating tube feeds. No overnight events. On mechanical ventilation. - Objective Vital Signs & Weight: Vital Signs (12 hours) Temp Pulse Resp BP Pulse Ox 05/21/20 18:20 100 05/21/20 16:00 100 05/21/20 15:47 100 05/21/20 14:51 71 165/64 H 05/21/20 12:00 97.6 F 32 H 05/21/20 11:24 71 05/21/20 10:00 19 05/21/20 09:16 67 147/67 H 05/21/20 09:15 67 147/67 H 05/21/20 09:14 67 147/67 H 05/21/20 08:00 77 100 05/21/20 07:57 22 H Weight Admit Weight 322 lb 1.526 oz Weight 5.111 oz Most Recent Monitor Data Heart Rate from ECG 83 NIBP 168/89 NIBP BP-Mean 115 Respiration from ECG 19 SpO2 100 I&O: 05/20/20 05/21/20 05/22/20 06:59 06:59 06:59 Intake Total 1539 4171.8 1743 Output Total 2321 5355 4190 [facility] -1183.2 -2447 Result Diagrams: 05/21/20 03:02 05/21/20 03:02 Additional Labs: Accuchecks 05/21/20 05/20/20 04:36 23:22 POC Glucose 110 H 108 H Abnormal Lab Results - Last 48 hrs 05/20/20 06:00: WBC 15.0 H, RBC 2.80 L, Hgb 8.2 L, Hct 25.2 L, RDW 17.0 H, Band Neuts % (Manual) 1 L 05/20/20 06:00: Chloride 108 H, Carbon Dioxide 19 L 05/21/20 03:02: WBC 14.0 H, RBC 2.59 L, Hgb 7.6 L, Hct 23.7 L, MCHC 31.9 L, RDW 16.9 H, Band Neuts % (Manual) 1 L, Lymphocytes % (Manual) 19 L 05/21/20 03:02: Chloride 108 H, Carbon Dioxide 21 L Microbiology - Entire Visit 05/07/20 10:15 Sputum Respiratory Culture - Final Methicillin resistant S.aureus 04/27/20 06:05 Venous blood - Left Hand Blood Culture - Final NO GROWTH IN 5 DAYS 04/27/20 05:43 Venous blood - Right Arm Blood Culture - Final NO GROWTH IN 5 DAYS 04/27/20 06:10 Urine Straight Catheter Urine Culture - Final NO GROWTH AT 48 HOURS Vent - Assess Status Start: 04/28/20 14:31 Freq: Q2HR Status: Active Protocol: Document 05/21/20 12:59 MEP (Rec: 05/21/20 13:05 MEP [id number]) Ventilator Status/Info Patient/Vent Settings Endotracheal Tube Insertion Site Tracheostomy ETT Position (cm) Trach Cuff Inflated No Ventilator Mode FIO2 Vent TV Set Delivered TV Patient TV (Spontaneous) Vent RR Patient RR (12-20) Peak Pressure (cmH2O) PEEP (cm H2O) PSV Sedation (RASS) Almaraz Agitation-Sedation Scale (RASS): +4 = Combative: Combative, violent, immediate danger to staff +3 = Very agitated: Pulls to remove tubes or catheter; aggressive +2 = Agitated: Frequent non-purposeful movement, fights ventilator +1 = Restless: Anxious, apprehensive, movements not aggressive 0 = Alert and Calm: Spontaneously pays attention to caregiver -1 = Drowsy: Not fully alert, but has sustained awakening to voice -2 = Light sedation: Briefly awakens to voice (eyes contact < 10 secs) -3 = Moderate sedation: Movement or eye opening to voice (no eye contact) -4 = Deep sedation: No response to voice, but movement or eye opening to physical stimulation -5 = Unarousable: No response to voice or physical stimulation Sedation Yes Sedation Type versed @ 2 RASS Goal Score -2 RASS Actual Score [ 0 ] Alert and calm Intervention to attain goal weaning off versed Comfort Care Call Jaramillo Within Reach Yes Oral Care Teeth Brushing,Clorhexidine Oral Rinse HOB Angle (degrees) 35 Patient Turned Right *If no, document why not Edit Result 05/21/20 12:30 MEP (Rec: 05/21/20 13:24 MEP [id number]) Ventilator Status/Info Comfort Care *If no, document why not pt placed on trach collar Edit Time 05/21/20 12:30 MEP (Rec: 05/21/20 13:24 MEP [id number]) 05/21/20 12:59=>05/21/20 12:30 Radiology Reviewed by me: Yes (CXR - No new changes) EKG Reviewed by me: Yes (Sinus rhythm on telemetry) Hospitalist ROS - Review of Systems ROS unobtainable: due to mental status - Medication Medications: Active Medications Generic Name Dose Route Start Last Admin Trade Name Freq PRN Reason Stop Dose Admin Acetaminophen 500 mg 05/14/20 14:00 05/21/20 13:59 Acetaminophen 650 Mg/20.3 Ml Udcup PER TUBE 500 mg 0200,0800,1400,2000 KEEGAN Administration Albuterol/Ipratropium 3 ml 05/19/20 14:30 05/21/20 18:22 Ipratropium/Albuterol Sulfate 3 Ml Neb NEB 3 ml [id number] KEEGAN Administration Amlodipine Besylate 10 mg 05/05/20 09:00 05/21/20 09:14 Amlodipine 10 Mg Tab PER TUBE 10 mg DAILY KEEGAN Administration Aspirin 325 mg 04/28/20 09:00 05/21/20 09:14 Aspirin 325 Mg Tab PO 325 mg DAILY KEEGAN Administration Atorvastatin Calcium 20 mg 04/27/20 21:00 05/20/20 21:26 Atorvastatin Calcium 20 Mg Tab PO 20 mg HS KEEGAN Administration Budesonide 0.5 mg 05/19/20 18:30 05/21/20 18:21 Budesonide 0.5 Mg/2 Ml Neb NEB 0.5 mg BID-RT KEEGAN Administration Buspirone HCl 10 mg 05/06/20 09:00 05/21/20 14:51 Buspirone Hcl 5 Mg Tab PER TUBE 10 mg TID KEEGAN Administration Clonidine 0.2 mg 05/10/20 09:00 05/17/20 08:20 Clonidine 0.2mg/24 Hour Patch TD 0.2 mg Q7DAYS KEEGAN Administration Dexamethasone 1 mg 05/19/20 09:00 05/21/20 09:18 Dexamethasone 4 Mg/Ml Vial SLOW IVP 1 mg DAILY KEEGAN Administration Ezetimibe 10 mg 04/28/20 09:00 05/21/20 09:15 Ezetimibe 10 Mg Tab PO 10 mg DAILY KEEGAN Administration Furosemide 20 mg 05/21/20 14:00 05/21/20 14:00 Furosemide 20 Mg/2 Ml Vial SLOW IVP 05/22/20 06:01 20 mg Q8HR KEEGAN Administration Hydralazine HCl 50 mg 05/07/20 15:00 05/21/20 14:51 Hydralazine 25 Mg Tab PER TUBE 50 mg TID KEEGAN Administration Hydralazine HCl 10 mg 05/10/20 09:10 05/19/20 21:55 Hydralazine 20 Mg/Ml Vial SLOW IVP 10 mg Q2H PRN Administration SBP > 180 Dopamine HCl/Dextrose 250 mls @ 14.878 mls/hr 05/03/20 08:15 05/03/20 09:40 Dopamine 400 Mg/D5w 250 Ml IVPB 250 mls INF KEEGAN Administration Protocol 2.5 MCG/KG/MIN Midazolam HCl 100 mls @ 0 mls/hr 05/19/20 09:00 05/21/20 03:18 Versed IVPB 100 mls INF KEEGNA Administration Protocol Titrate Insulin Human Regular 0 units 04/28/20 09:00 05/10/20 16:25 Insulin Regular 300 Units/3 Ml Vial SC 2 unit .MILD SLIDING PRN Administration MILD SLIDING SCALE Protocol Iron/Minerals/Multivitamins 1 tab 04/28/20 09:00 05/21/20 09:16 Multivitamin W/ Minerals 1 Tab PO 1 tab DAILY KEEGAN Administration Labetalol HCl 200 mg 05/20/20 09:00 05/21/20 09:15 Labetalol 100 Mg Tab PO 200 mg BID KEEGAN Administration Levothyroxine Sodium 125 mcg 05/16/20 09:00 05/21/20 09:39 Levothyroxine 100 Mcg Sdv SLOW IVP 125 mcg DAILY KEEGAN Administration Pantoprazole Sodium 40 mg 05/03/20 09:00 05/21/20 09:16 Pantoprazole 40 Mg Granules Packet PO 40 mg DAILY KEEGAN Administration Potassium Bicarbonate/Citric Acid 20 meq 05/07/20 21:00 05/21/20 09:16 Potassium Bicarbonate/Cit Ac 20 Meq Tab PER TUBE 20 meq BID KEEGAN Administration Ropinirole HCl 1 mg 05/06/20 15:00 05/21/20 14:51 Ropinirole Hcl 1 Mg Tab PO 1 mg TID KEEGAN Administration Scopolamine 1.5 mg 05/15/20 01:30 05/21/20 03:29 Scopolamine 1.5 Mg/72 Hour Patch TOP 1.5 mg Q3D KEEGAN Administration Sodium Chloride 10 ml 04/27/20 21:00 05/21/20 09:18 Flush - Normal Saline 10 Ml Syringe IVF 10 ml Q12HR KEEGAN Administration Sodium Chloride 10 ml 04/27/20 12:45 04/27/20 20:43 Flush - Normal Saline 10 Ml Syringe IVF 10 ml PRN PRN Administration Saline Flush Sterile Water 1.2 ml 04/27/20 21:30 04/27/20 21:48 Sterile Water 10 Ml Vial FS 1.2 ml PRN PRN Administration RECONSTITUTION Zinc Sulfate 220 mg 04/27/20 20:00 05/20/20 21:26 Zinc Sulfate 220 Mg Cap PO 220 mg 2000 KEEGAN Administration Ziprasidone 10 mg 05/06/20 14:10 05/19/20 12:42 Ziprasidone 20 Mg Vial IM 10 mg Q12H PRN Administration Agitation Hospitalist Exam Vitals: Vital Signs (12 hours) Temp Pulse Resp BP Pulse Ox 05/21/20 18:20 100 05/21/20 16:00 100 05/21/20 15:47 100 05/21/20 14:51 71 165/64 H 05/21/20 12:00 97.6 F 32 H 05/21/20 11:24 71 05/21/20 10:00 19 05/21/20 09:16 67 147/67 H 05/21/20 09:15 67 147/67 H 05/21/20 09:14 67 147/67 H 05/21/20 08:00 77 100 05/21/20 07:57 22 H Weight Admit Weight 322 lb 1.526 oz Weight 5.111 oz Most Recent Monitor Data Heart Rate from ECG 83 NIBP 168/89 NIBP BP-Mean 115 Respiration from ECG 19 SpO2 100 General Appearance: NAD Heart: RRR, no gallops Respiratory: no wheezes, rhonchi Gastrointestinal: soft, non-distended Neurological - other findings: Neuro/psychunable to assess due to current men tation Hosp A/P - Plan DVT proph w/SCDs 75-year-old female admitted on 04/27 with respiratory failure with O2 saturation of 88% on room air. She failed noninvasive positive pressure ventilation requiring mechanical intubation. She underwent tracheostomy and PEG tube placement. Acute hypoxic respiratory failure due to COVID-19 pneumonia Toxic metabolic encephalopathy Hypokalemia/hypernatremia Hypertension Morbid obesity Anxiety Early dementia MAX on CKD stage II Hemoptysis Plan: Continue supportive care. IV fluids discontinued. Gentle diuretics per critical care. Continue dexamethasone and other medications as above. A.m. labs. Await placement. A.m. labs. DVT prophylaxis with SCDs. Will consider heparin if okay with critical care. Continue Protonix for GI prophylaxis.
[2020-05-21] MEDS: Zinc Sulfate 220 MG CAP PO SCH (20:35)
[2020-05-21] MEDS: Atorvastatin Calcium 20 MG TAB PO SCH (20:36)
[2020-05-21] MEDS ORDERED: GUAIFENESIN SF SOLN 200 MG/10 ML UDCUP PO SCH (21:45)
[2020-05-21] MEDS: GUAIFENESIN SF SOLN 200 MG/10 ML UDCUP PO SCH (22:37)
[2020-05-22] MEDS: Acetaminophen 650 MG/20.3 ML UDCUP PER TUBE SCH ×4 (02:18→21:02)
[2020-05-22] MEDS: Furosemide 20 MG/2 ML VIAL SLOW IVP SCH (05:27)
[2020-05-22 05:47] LABS: Band 9 % (5-11); Eosinophils 4 % (0-10); Hemoglobin 8.1 g/dL (12.0-16.0); Lymphocytes 15 % (21-51); MDiff Complete? YES; Mean Corpuscular HGB CONC 31.4 g/dL (32.0-36.0); Mean Corpuscular Hemoglobin 28.9 pg (27.0-31.0); Mean Platelet Volume 9.6 fL (7.4-10.4); Monocytes 3 % (0-10); Neutrophil 69 % (42-75); Platelet Count 222 thou/uL (130-400); RBC Distribution Width 16.6 % (11.5-14.5); Red Blood Cell (RBC) Count 2.81 mill/uL (4.20-5.40); White Blood Cell (WBC) Count 13.6 thou/uL (4.8-10.8)
[2020-05-22 05:50] LABS: Anion Gap 15 mmol/L (10-20); BUN (Urea Nitrogen) 23 mg/dL (9.8-20.1); Calc. Creatinine Clearance 0 mL/min (70-130); Calcium 9.2 mg/dL (7.8-10.44); Carbon Dioxide 26 mmol/L (23-31); Chloride 104 mmol/L (98-107); Glucose 123 mg/dL (83-110); Magnesium 1.4 mg/dL (1.6-2.6); Potassium 3.6 mmol/L (3.5-5.1); Sodium 141 mmol/L (136-145)
[2020-05-22 05:52] LABS: Phosphorus 4.3 mg/dL (2.3-4.7)
[2020-05-22] MEDS ORDERED: Magnesium Sulfate 4 GM in Sodium Chloride 0.9% 250 ML 250 ML IVPB SCH (06:30)
[2020-05-22] MEDS: Budesonide 0.5 MG/2 ML NEB NEB SCH ×2 (07:51→19:03)
[2020-05-22] MEDS: rOPINIRole HCl 1 MG TAB PO SCH ×3 (08:07→21:12)
[2020-05-22] MEDS: Amlodipine 10 MG TAB PER TUBE SCH (08:07)
[2020-05-22] MEDS: Potassium Bicarbonate/Cit Ac 20 MEQ TAB PER TUBE SCH ×2 (08:08→21:04)
[2020-05-22] MEDS: Multivitamin W/ Minerals 1 TAB PO SCH (08:08)
[2020-05-22] MEDS: Ezetimibe 10 MG TAB PO SCH (08:08)
[2020-05-22] MEDS: Aspirin 325 MG TAB PO SCH (08:08)
[2020-05-22] MEDS: Pantoprazole 40 MG GRANULES PACKET PO SCH (08:08)
[2020-05-22] MEDS: busPIRone HCl 5 MG TAB PER TUBE SCH ×3 (08:08→21:19)
[2020-05-22] MEDS: Dexamethasone 4 mg/ml Vial SLOW IVP SCH (08:09)
[2020-05-22] MEDS: Labetalol 100 MG TAB PO SCH ×2 (09:07→21:04)
[2020-05-22] MEDS: hydrALAZINE 25 MG TAB PER TUBE SCH ×3 (09:07→21:04)
--- NOTE | 2020-05-22 11:28 | RAD ---
CHEST ONE VIEW: HISTORY: Follow up pneumonia. FINDINGS/IMPRESSION: Stable life support tubes. Minimal cardiomegaly with bilateral patchy parenchymal changes and evidenc e for left pleural effusion. IMPRESSION: Overall stable examination. POS: RRE
--- NOTE | 2020-05-22 12:47 | PRG ---
DATE OF SERVICE: 05/22/2020 SUBJECTIVE: Ms. Clark is a 75-year-old morbidly obese woman with a history of coronary artery disease, essential hypertension, hypothyroidism, COPD, and depression. The patient was admitted on 04/27/2020, with acute hypoxemic respiratory failure secondary to COVID-19 pneumonia. She remained on mechanical ventilator support up until yesterday. She tolerated ventilator wean. Additionally, we initiated forced diuresis yesterday, to which the patient responded appropriately, and we have a negative fluid balance of 5.6 L over the last 24 hours. This morning, the patient is awake and alert, off sedatives. OBJECTIVE: VITAL SIGNS: Include blood pressure 136/66, pulse 67, respiratory rate is 31. Maximum temperature in last 24 hours is on 100 degrees Fahrenheit. Oxygen saturation is 100% on FiO2 of 28%, now on trach collar. HEENT: Pupils are equally round and reactive to light bilaterally. HEART: Reveals regular rate and rhythm. No murmurs or gallops auscultated. LUNGS: Reveal scattered rhonchi. Breathing regular and nonlabored. ABDOMEN: Soft and obese but nontender to palpation. NEUROLOGIC: Reveals no focal deficits present. The patient is overall deconditioned. MUSCULOSKELETAL: Reveals 3/5 muscle strength in bilateral upper and lower extremities. LABORATORY FINDINGS: Today, include a CBC with 13,600 white blood cells, hemoglobin and hematocrit are stable at 8.1 and 25.9 respectively. Platelet count is 222,000. Metabolic profile; sodium 141, potassium 3.6, chloride is 104, bicarb is 26, BUN is 23, creatinine is 1.10, glucose 123, magnesium 1.4, and phosphorus is 4.3. I have personally reviewed the chest x-ray obtained this morning which reveals minimal cardiomegaly with improved aeration and no significant residual pleural effusions or pneumothorax present. IMPRESSION: 1. Acute COVID-19 pneumonia, resolving. 2. Acute hypoxemic respiratory failure secondary to #1, resolving. 3. Acute hypomagnesemia. 4. Acute blood loss anemia, stable. 5. Acute congestive heart failure exacerbation, improved. PLAN: 1. We will correct abnormal electrolytes. 2. Continue with pulmonary toileting and provide noninvasive mechanical ventilator support as needed. 3. We will initiate activity per Physical and Occupational therapy. The patient is now on trach collar and requiring no aggressive measures to maintain oxygenation. 4. We will continue to minimize total fluids while monitoring urinary output as endpoint of our resuscitation. There is no indication for additional blood transfusion with regard to this stable acute blood loss anemia. However, when the patient is recovered fully from her COVID-19, she may need further investigation with regard to her anemia. Total critical care time is 35 minutes. Job ID: [id number]
[2020-05-22] MEDS: Levothyroxine 100 MCG SDV SLOW IVP SCH (16:21)
--- NOTE | 2020-05-22 16:41 | PDOC.HOSPP ---
- Subjective Encounter Date: 05/22/20 Encounter Time: 11:45 non-verbal Subjective: Patient seen and examined for respiratory failure due to COVID-19 pneumonia. Somnolent. On trach collar. Off sedation. - Objective Vital Signs & Weight: Vital Signs (12 hours) Temp Pulse Resp BP BP Pulse Ox 05/22/20 16:30 79 144/73 H 05/22/20 16:00 98.5 F 05/22/20 15:25 100 05/22/20 15:24 79 20 100 05/22/20 13:47 153/78 H 05/22/20 10:56 73 22 H 100 05/22/20 10:54 100 05/22/20 09:07 77 178/62 H 05/22/20 08:07 77 138/65 05/22/20 08:00 100 05/22/20 07:51 77 25 H 100 Weight Admit Weight 322 lb 1.526 oz Weight 4.998 oz Most Recent Monitor Data Heart Rate from ECG 80 NIBP 165/78 NIBP BP-Mean 107 Respiration from ECG 40 SpO2 95 I&O: 05/21/20 05/22/20 05/23/20 06:59 06:59 06:59 Intake Total 4171.8 1864.4 180 Output Total 5355 7480 1350 Balance -1183.2 -5615.6 -1170 Result Diagrams: 05/22/20 05:01 05/22/20 05:01 Additional Labs: Accuchecks 05/21/20 20:39 POC Glucose 105 H Abnormal Lab Results - Last 48 hrs 05/21/20 03:02: WBC 14.0 H, RBC 2.59 L, Hgb 7.6 L, Hct 23.7 L, MCHC 31.9 L, RDW 16.9 H, Band Neuts % (Manual) 1 L, Lymphocytes % (Manual) 19 L 05/21/20 03:02: Chloride 108 H, Carbon Dioxide 21 L 05/22/20 05:01: WBC 13.6 H, RBC 2.81 L, Hgb 8.1 L, Hct 25.9 L, MCHC 31.4 L, RDW 16.6 H, Lymphocytes % (Manual) 15 L 05/22/20 05:01: BUN 23 H, Magnesium 1.4 L Microbiology - Entire Visit 05/07/20 10:15 Sputum Respiratory Culture - Final Methicillin resistant S.aureus 04/27/20 06:05 Venous blood - Left Hand Blood Culture - Final NO GROWTH IN 5 DAYS 04/27/20 05:43 Venous blood - Right Arm Blood Culture - Final NO GROWTH IN 5 DAYS 04/27/20 06:10 Urine Straight Catheter Urine Culture - Final NO GROWTH AT 48 HOURS Vent - Assess Status Start: 04/28/20 14:31 Freq: Q2HR Status: Hold Protocol: Document 05/22/20 16:00 LIZZY (Rec: 05/22/20 16:20 LIZZY [id number]) Ventilator Status/Info Patient/Vent Settings Endotracheal Tube Insertion Site ETT Position (cm) Trach Cuff Inflated Ventilator Mode FIO2 Vent TV Set Delivered TV Patient TV (Spontaneous) Vent RR Patient RR (12-20) Peak Pressure (cmH2O) PEEP (cm H2O) PSV Sedation (RASS) Almaraz Agitation-Sedation Scale (RASS): +4 = Combative: Combative, violent, immediate danger to staff +3 = Very agitated: Pulls to remove tubes or catheter; aggressive +2 = Agitated: Frequent non-purposeful movement, fights ventilator +1 = Restless: Anxious, apprehensive, movements not aggressive 0 = Alert and Calm: Spontaneously pays attention to caregiver -1 = Drowsy: Not fully alert, but has sustained awakening to voice -2 = Light sedation: Briefly awakens to voice (eyes contact < 10 secs) -3 = Moderate sedation: Movement or eye opening to voice (no eye contact) -4 = Deep sedation: No response to voice, but movement or eye opening to physical stimulation -5 = Unarousable: No response to voice or physical stimulation Sedation No Sedation Type RASS Goal Score RASS Actual Score Intervention to attain goal Comfort Care Call Jaramillo Within Reach Oral Care HOB Angle (degrees) Patient Turned *If no, document why not pt oon room air Hospitalist ROS - Review of Systems ROS unobtainable: due to mental status - Medication Medications: Active Medications Generic Name Dose Route Start Last Admin Trade Name Freq PRN Reason Stop Dose Admin Acetaminophen 500 mg 05/14/20 14:00 05/22/20 14:00 Acetaminophen 650 Mg/20.3 Ml Udcup PER TUBE 500 mg 0200,0800,1400,2000 KEEGAN Administration Albuterol/Ipratropium 3 ml 05/19/20 14:30 02/14/21 15:24 Ipratropium/Albuterol Sulfate 3 Ml Neb NEB 3 ml [id number] KEEGAN Administration Amlodipine Besylate 10 mg 05/05/20 09:00 05/22/20 08:07 Amlodipine 10 Mg Tab PER TUBE 10 mg DAILY KEEGAN Administration Aspirin 325 mg 04/28/20 09:00 05/22/20 08:08 Aspirin 325 Mg Tab PO 325 mg DAILY KEEGAN Administration Atorvastatin Calcium 20 mg 04/27/20 21:00 05/21/20 20:36 Atorvastatin Calcium 20 Mg Tab PO 20 mg HS KEEGAN Administration Budesonide 0.5 mg 05/19/20 18:30 05/22/20 07:51 Budesonide 0.5 Mg/2 Ml Neb NEB 0.5 mg BID-RT KEEGAN Administration Buspirone HCl 10 mg 05/06/20 09:00 05/22/20 08:08 Buspirone Hcl 5 Mg Tab PER TUBE 10 mg TID KEEGAN Administration Clonidine 0.2 mg 05/10/20 09:00 05/17/20 08:20 Clonidine 0.2mg/24 Hour Patch TD 0.2 mg Q7DAYS KEEGAN Administration Dexamethasone 1 mg 05/19/20 09:00 05/22/20 08:09 Dexamethasone 4 Mg/Ml Vial SLOW IVP 1 mg DAILY KEEGAN Administration Ezetimibe 10 mg 04/28/20 09:00 05/22/20 08:08 Ezetimibe 10 Mg Tab PO 10 mg DAILY KEEGAN Administration Guaifenesin 600 mg 05/22/20 09:00 05/21/20 22:37 Guaifenesin Sf Soln 200 Mg/10 Ml Udcup PO 600 mg Q12HR KEEGAN Administration Hydralazine HCl 50 mg 05/07/20 15:00 05/22/20 16:30 Hydralazine 25 Mg Tab PER TUBE 50 mg TID KEEGAN Administration Hydralazine HCl 10 mg 05/10/20 09:10 05/19/20 21:55 Hydralazine 20 Mg/Ml Vial SLOW IVP 10 mg Q2H PRN Administration SBP > 180 Midazolam HCl 100 mls @ 0 mls/hr 05/19/20 09:00 05/21/20 03:18 Versed IVPB 100 mls INF KEEGAN Administration Protocol Titrate Insulin Human Regular 0 units 04/28/20 09:00 05/10/20 16:25 Insulin Regular 300 Units/3 Ml Vial SC 2 unit .MILD SLIDING PRN Administration MILD SLIDING SCALE Protocol Iron/Minerals/Multivitamins 1 tab 04/28/20 09:00 05/22/20 08:08 Multivitamin W/ Minerals 1 Tab PO 1 tab DAILY KEEGAN Administration Labetalol HCl 200 mg 05/20/20 09:00 05/22/20 09:07 Labetalol 100 Mg Tab PO 200 mg BID KEEGAN Administration Levothyroxine Sodium 125 mcg 05/16/20 09:00 05/22/20 16:21 Levothyroxine 100 Mcg Sdv SLOW IVP 125 mcg DAILY KEEGAN Administration Pantoprazole Sodium 40 mg 05/03/20 09:00 05/22/20 08:08 Pantoprazole 40 Mg Granules Packet PO 40 mg DAILY KEEGAN Administration Potassium Bicarbonate/Citric Acid 20 meq 05/07/20 21:00 05/22/20 08:08 Potassium Bicarbonate/Cit Ac 20 Meq Tab PER TUBE 20 meq BID KEEGAN Administration Ropinirole HCl 1 mg 05/06/20 15:00 05/22/20 16:31 Ropinirole Hcl 1 Mg Tab PO 1 mg TID KEEGAN Administration Scopolamine 1.5 mg 05/15/20 01:30 05/21/20 03:29 Scopolamine 1.5 Mg/72 Hour Patch TOP 1.5 mg Q3D KEEGAN Administration Sodium Chloride 10 ml 04/27/20 21:00 05/22/20 09:08 Flush - Normal Saline 10 Ml Syringe IVF 10 ml Q12HR KEEGAN Administration Sodium Chloride 10 ml 04/27/20 12:45 04/27/20 20:43 Flush - Normal Saline 10 Ml Syringe IVF 10 ml PRN PRN Administration Saline Flush Sterile Water 1.2 ml 04/27/20 21:30 04/27/20 21:48 Sterile Water 10 Ml Vial FS 1.2 ml PRN PRN Administration RECONSTITUTION Zinc Sulfate 220 mg 04/27/20 20:00 05/21/20 20:35 Zinc Sulfate 220 Mg Cap PO 220 mg 2000 KEEGAN Administration Ziprasidone 10 mg 05/06/20 14:10 05/19/20 12:42 Ziprasidone 20 Mg Vial IM 10 mg Q12H PRN Administration Agitation Hospitalist Exam Vitals: Vital Signs (12 hours) Temp Pulse Resp BP BP Pulse Ox 05/22/20 16:30 79 144/73 H 05/22/20 16:00 98.5 F 05/22/20 15:25 100 05/22/20 15:24 79 20 100 05/22/20 13:47 153/78 H 05/22/20 10:56 73 22 H 100 05/22/20 10:54 100 05/22/20 09:07 77 178/62 H 05/22/20 08:07 77 138/65 05/22/20 08:00 100 05/22/20 07:51 77 25 H 100 Weight Admit Weight 322 lb 1.526 oz Weight 4.998 oz Most Recent Monitor Data Heart Rate from ECG 80 NIBP 165/78 NIBP BP-Mean 107 Respiration from ECG 40 SpO2 95 General Appearance: ill appearing Heart: RRR, no gallops Respiratory: no wheezes, rhonchi Gastrointestinal: soft, non-distended, normal bowel sounds Extremities: no cyanosis, no clubbing Neurological - other findings: Exam limited due to current mentation Hosp A/P - Plan DVT proph w/SCDs 75-year-old female admitted on 04/27 with respiratory failure with O2 saturation of 88% on room air. Her work-up was consistent with COVID-19 pneumonia. She failed noninvasive positive pressure ventilation requiring mechanical intubation. She underwent tracheostomy and PEG tube placement. Hospitalist team covering for Dr. 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 On trach collar. Hemoglobin 8.1 today. Replace magnesium. Chest x-ray reviewed continue aspirin, amlodipine, low-dose dexamethasone and other medications as above. A.m. labs. Chest x-ray in a.m. Dr. Murillo to assume care in a.m.
[2020-05-22] MEDS: Zinc Sulfate 220 MG CAP PO SCH (21:04)
[2020-05-22] MEDS: Atorvastatin Calcium 20 MG TAB PO SCH (21:04)
[2020-05-22] MEDS: GUAIFENESIN SF SOLN 200 MG/10 ML UDCUP PO SCH (21:20)
[2020-05-23] MEDS: Budesonide 0.5 MG/2 ML NEB NEB SCH ×2 (05:45→18:25)
[2020-05-23] MEDS ORDERED: Dexamethasone 4 mg/ml Vial ONE (10:52)
[2020-05-23] MEDS ORDERED: Multivitamin W/ Minerals 1 TAB ONE (10:52)
[2020-05-23] MEDS ORDERED: Acetaminophen 650 MG/20.3 ML UDCUP ONE ×2 (10:52)
[2020-05-23] MEDS ORDERED: Aspirin 325 MG TAB ONE (10:52)
[2020-05-23] MEDS ORDERED: busPIRone HCl 5 MG TAB ONE (10:52)
[2020-05-23] MEDS ORDERED: Levothyroxine 100 MCG SDV ONE (10:52)
[2020-05-23] MEDS ORDERED: hydrALAZINE 25 MG TAB ONE (10:52)
[2020-05-23] MEDS ORDERED: Potassium Bicarbonate/Cit Ac 20 MEQ TAB ONE (10:52)
[2020-05-23] MEDS ORDERED: Amlodipine 10 MG TAB ONE (10:52)
[2020-05-23] MEDS ORDERED: Labetalol 100 MG TAB ONE (10:52)
[2020-05-23] MEDS ORDERED: rOPINIRole HCl 1 MG TAB ONE (10:52)
[2020-05-23] MEDS ORDERED: busPIRone HCl 10 MG TAB ONE (10:52)
[2020-05-23] MEDS ORDERED: Ezetimibe 10 MG TAB ONE (10:52)
--- NOTE | 2020-05-23 11:20 | RAD ---
EXAM: CHEST ONE VIEW HISTORY: Pneumonia. Follow-up evaluation. COMPARISON: 05/22/2020 FINDINGS: Tracheostomy device remains in place. Right-sided vascular catheter is again noted in place with tip overlying the expected location of the junction of the innominate vein and SVC. Again noted is increased opacity at the left lung base which may be related to left pleural effusion and atelectasis . Pneumonia left lung base is a possibility. Minimal patchy opacity is again seen at the medial right lung base. Chest is stable when compared to prior exam. IMPRESSION: Stable chest
[2020-05-23] MEDS ORDERED: Levothyroxine Sodium 125 MCG TAB PER TUBE SCH (11:30)
--- NOTE | 2020-05-23 12:14 | PRG ---
DATE OF SERVICE: 05/23/2020 SUBJECTIVE: Ms. Clark remains fairly combative with the nursing staff and told she has been routinely refusing physical therapy. She has been weaned down to a trach collar over the weekend by Dr. Carvajal. OBJECTIVE: VITAL SIGNS: Her pulse is 71, blood pressure 147/89, O2 saturation 98%, respiratory rate 34. HEENT: Unchanged. NECK: Trach in good position. LUNGS: Fairly clear. CARDIAC: S1 and S2, regular. ABDOMEN: Soft and obese. EXTREMITIES: No edema. LABORATORY DATA: White count 13.2, hematocrit 25.7, and platelet count 218. IMAGING STUDIES: X-ray is fairly clear. ASSESSMENT: 1. COVID-19 pneumonia. 2. Acute hypoxic respiratory failure - now weaned off mechanical ventilation. PLAN: Awaiting LTAC placement. We will follow. Job ID: [id number]
[2020-05-23] MEDS: Acetaminophen 650 MG/20.3 ML UDCUP PER TUBE SCH ×3 (15:56→20:06)
[2020-05-23] MEDS: Aspirin 325 MG TAB PO SCH (15:58)
[2020-05-23] MEDS: busPIRone HCl 5 MG TAB PER TUBE SCH ×3 (15:58→20:07)
[2020-05-23] MEDS: Amlodipine 10 MG TAB PER TUBE SCH (15:58)
[2020-05-23] MEDS: Ezetimibe 10 MG TAB PO SCH (15:59)
[2020-05-23] MEDS: GUAIFENESIN SF SOLN 200 MG/10 ML UDCUP PO SCH ×2 (15:59→20:15)
[2020-05-23] MEDS: hydrALAZINE 25 MG TAB PER TUBE SCH ×2 (15:59→19:39)
[2020-05-23] MEDS: Dexamethasone 4 mg/ml Vial SLOW IVP SCH (15:59)
[2020-05-23] MEDS: Labetalol 100 MG TAB PO SCH ×2 (16:00→20:10)
[2020-05-23] MEDS: Multivitamin W/ Minerals 1 TAB PO SCH (16:00)
[2020-05-23] MEDS: Pantoprazole 40 MG GRANULES PACKET PO SCH (16:00)
[2020-05-23] MEDS: Potassium Bicarbonate/Cit Ac 20 MEQ TAB PER TUBE SCH ×2 (16:00→20:08)
[2020-05-23] MEDS: rOPINIRole HCl 1 MG TAB PO SCH ×2 (16:04→19:40)
[2020-05-23 16:37] LABS: Anion Gap 19 mmol/L (10-20); BUN (Urea Nitrogen) 28 mg/dL (9.8-20.1); Calc. Creatinine Clearance 0 mL/min (70-130); Calcium 9.5 mg/dL (7.8-10.44); Carbon Dioxide 20 mmol/L (23-31); Chloride 104 mmol/L (98-107); Glucose 112 mg/dL (83-110); Potassium 4.1 mmol/L (3.5-5.1); Sodium 139 mmol/L (136-145)
[2020-05-23 17:20] LABS: Band 10 % (5-11); Eosinophils 4 % (0-10); Hemoglobin 8.2 g/dL (12.0-16.0); Lymphocytes 20 % (21-51); MDiff Complete? YES; Mean Corpuscular HGB CONC 32.1 g/dL (32.0-36.0); Mean Corpuscular Hemoglobin 29.4 pg (27.0-31.0); Mean Corpuscular Volume 91.6 fL (78.0-98.0); Mean Platelet Volume 9.4 fL (7.4-10.4); Monocytes 6 % (0-10); Neutrophil 50 % (42-75); Platelet Count 218 thou/uL (130-400); Platelet Morphology Comment Appears Adequate; Polychromasia SLIGHT = 2-3 cells (100X) (0-2/hpf); RBC Distribution Width 16.5 % (11.5-14.5); Reactive Lymphocytes 10 % (0-10); Target Cells SLIGHT = 2-5 cells (100X) (0-1/hpf); Tear Drops SLIGHT = 2-5 cells (100X) (0-1/hpf); White Blood Cell (WBC) Count 13.2 thou/uL (4.8-10.8)
[2020-05-23] MEDS: Levothyroxine 100 MCG SDV SLOW IVP SCH (18:02)
[2020-05-23] MEDS: Atorvastatin Calcium 20 MG TAB PO SCH (20:07)
[2020-05-23] MEDS: Zinc Sulfate 220 MG CAP PO SCH (20:07)
[2020-05-24] MEDS: Acetaminophen 650 MG/20.3 ML UDCUP PER TUBE SCH ×4 (01:58→20:40)
[2020-05-24] MEDS: Scopolamine 1.5 mg/72 hour Patch TOP SCH (01:59)
[2020-05-24 03:49] LABS: Anion Gap 15 mmol/L (10-20); BUN (Urea Nitrogen) 38 mg/dL (9.8-20.1); Calc. Creatinine Clearance 0 mL/min (70-130); Calcium 9.6 mg/dL (7.8-10.44); Carbon Dioxide 28 mmol/L (23-31); Chloride 104 mmol/L (98-107); Glucose 129 mg/dL (83-110); Potassium 4.2 mmol/L (3.5-5.1); Sodium 143 mmol/L (136-145)
[2020-05-24 04:10] LABS: Band 10 % (5-11); Eosinophils 2 % (0-10); Hemoglobin 7.8 g/dL (12.0-16.0); Lymphocytes 22 % (21-51); MDiff Complete? YES; Mean Corpuscular HGB CONC 32.1 g/dL (32.0-36.0); Mean Corpuscular Hemoglobin 29.7 pg (27.0-31.0); Mean Corpuscular Volume 92.7 fL (78.0-98.0); Mean Platelet Volume 9.2 fL (7.4-10.4); Monocytes 3 % (0-10); Neutrophil 63 % (42-75); Platelet Count 270 thou/uL (130-400); RBC Distribution Width 16.4 % (11.5-14.5); Red Blood Cell (RBC) Count 2.61 mill/uL (4.20-5.40); White Blood Cell (WBC) Count 13.8 thou/uL (4.8-10.8)
[2020-05-24] MEDS: Levothyroxine Sodium 125 MCG TAB PER TUBE SCH (05:28)
[2020-05-24] MEDS: Budesonide 0.5 MG/2 ML NEB NEB SCH ×2 (06:30→18:17)
--- NOTE | 2020-05-24 08:24 | RAD ---
EXAM: Single view of the chest HISTORY: Pneumonia COMPARISON: 05/23/2020 FINDINGS: Single view of the chest shows an enlarged but stable cardiomediastinal silhouette. The exa m is limited secondary to rotation. The patient appears to have a right-sided Mediport. Opacity seen in the left lung base. No acute osseous abnormality. IMPRESSION: Left lower lobe infiltrate
--- NOTE | 2020-05-24 09:27 | PRG ---
DATE OF SERVICE: 05/24/2020 SUBJECTIVE: The patient continues on trach collar. She is actually doing very well. I could not get her speak when I occluded her trach today. OBJECTIVE: VITAL SIGNS: Temperature is 98.8, pulse 77, blood pressure 175/82, O2 saturation generally in the high 90s. HEENT: Unremarkable. NECK: No adenopathy or JVD. Trach is in good position. LUNGS: Clear. CARDIAC: S1 and S2. Regular. ABDOMEN: Soft. EXTREMITIES: No edema. LABORATORY DATA: White blood cell count 13.8, hematocrit 24.2, and platelet count 270. Sodium 143, potassium 4.2, BUN 38, creatinine 1.0, and glucose 129. ASSESSMENT: Status post tracheostomy and percutaneous endoscopic gastrostomy for COVID-19 pneumonia, persistent respiratory failure. PLAN: The patient is ready for LTAC placement at any time. I will get Speech Therapy to see if we can get her a speaking valve. We will stop daily x-rays and daily labs. Job ID: [id number]
[2020-05-24] MEDS: Aspirin 325 MG TAB PO SCH (10:00)
[2020-05-24] MEDS: hydrALAZINE 25 MG TAB PER TUBE SCH ×3 (10:00→20:42)
[2020-05-24] MEDS: Ezetimibe 10 MG TAB PO SCH (10:01)
[2020-05-24] MEDS: busPIRone HCl 5 MG TAB PER TUBE SCH ×3 (10:01→20:42)
[2020-05-24] MEDS: Pantoprazole 40 MG GRANULES PACKET PO SCH (10:01)
[2020-05-24] MEDS: Labetalol 100 MG TAB PO SCH ×2 (10:04→20:41)
[2020-05-24] MEDS: Multivitamin W/ Minerals 1 TAB PO SCH (10:04)
[2020-05-24] MEDS: Amlodipine 10 MG TAB PER TUBE SCH (10:05)
[2020-05-24] MEDS: Potassium Bicarbonate/Cit Ac 20 MEQ TAB PER TUBE SCH ×2 (10:05→20:41)
[2020-05-24] MEDS: GUAIFENESIN SF SOLN 200 MG/10 ML UDCUP PO SCH ×2 (10:06→20:40)
[2020-05-24] MEDS: cloNIDine 0.2mg/24 Hour PATCH TD SCH (10:06)
[2020-05-24] MEDS: rOPINIRole HCl 1 MG TAB PO SCH ×2 (14:16→20:40)
[2020-05-24] MEDS: Atorvastatin Calcium 20 MG TAB PO SCH (20:42)
[2020-05-24] MEDS: Zinc Sulfate 220 MG CAP PO SCH (20:42)
[2020-05-25] MEDS: Acetaminophen 650 MG/20.3 ML UDCUP PER TUBE SCH ×4 (01:28→20:06)
[2020-05-25] MEDS: Levothyroxine Sodium 125 MCG TAB PER TUBE SCH (04:34)
[2020-05-25] MEDS: Budesonide 0.5 MG/2 ML NEB NEB SCH ×2 (07:25→18:34)
--- NOTE | 2020-05-25 09:18 | PRG ---
DATE OF SERVICE: 05/25/2020 SUBJECTIVE: The patient is still waiting at LTAC bed. Seems to be doing fine otherwise. OBJECTIVE: VITAL SIGNS: Temperature 99.3, pulse 70, blood pressure 154/79, respiratory rate 26 on trach collar. HEENT: Unremarkable. NECK: Trach in good position. Some secretions. CARDIAC: S1 and S2. Regular. ABDOMEN: Soft. EXTREMITIES: No edema. LABORATORY DATA: No labs were done today. ASSESSMENT: 1. Coronavirus disease 2019 pneumonia. 2. Acute respiratory failure, requiring mechanical ventilation and trach placement. PLAN: Basically rehabilitative issue at this point. I have reviewed her medications. I do not see any unnecessary medications. The patient has been taken off her steroids completely. She was placed on scopolamine patch several days ago for her secretions. Job ID: [id number]
[2020-05-25] MEDS: GUAIFENESIN SF SOLN 200 MG/10 ML UDCUP PO SCH ×2 (09:59→20:07)
[2020-05-25] MEDS: Ezetimibe 10 MG TAB PO SCH (10:14)
[2020-05-25] MEDS: hydrALAZINE 25 MG TAB PER TUBE SCH ×3 (10:14→20:06)
[2020-05-25] MEDS: busPIRone HCl 5 MG TAB PER TUBE SCH ×3 (10:15→20:15)
[2020-05-25] MEDS: Labetalol 100 MG TAB PO SCH ×2 (10:15→20:06)
[2020-05-25] MEDS: Pantoprazole 40 MG GRANULES PACKET PO SCH (10:15)
[2020-05-25] MEDS: Aspirin 325 MG TAB PO SCH (10:15)
[2020-05-25] MEDS: Amlodipine 10 MG TAB PER TUBE SCH (10:15)
[2020-05-25] MEDS: Multivitamin W/ Minerals 1 TAB PO SCH (10:15)
[2020-05-25] MEDS: Potassium Bicarbonate/Cit Ac 20 MEQ TAB PER TUBE SCH ×2 (10:15→20:06)
[2020-05-25] MEDS: rOPINIRole HCl 1 MG TAB PO SCH ×3 (10:16→20:07)
[2020-05-25 13:06] VITALS: BMI 57.1
[2020-05-25] MEDS: Zinc Sulfate 220 MG CAP PO SCH (20:06)
[2020-05-25] MEDS: Atorvastatin Calcium 20 MG TAB PO SCH (20:07)
[2020-05-26] MEDS: Acetaminophen 650 MG/20.3 ML UDCUP PER TUBE SCH ×4 (00:20→21:53)
[2020-05-26] MEDS: Levothyroxine Sodium 125 MCG TAB PER TUBE SCH (04:53)
[2020-05-26] MEDS: Aspirin 325 MG TAB PO SCH (07:54)
[2020-05-26] MEDS: Potassium Bicarbonate/Cit Ac 20 MEQ TAB PER TUBE SCH ×2 (07:54→21:56)
[2020-05-26] MEDS: Labetalol 100 MG TAB PO SCH ×2 (07:54→21:56)
[2020-05-26] MEDS: hydrALAZINE 25 MG TAB PER TUBE SCH ×3 (07:56→21:55)
[2020-05-26] MEDS: Amlodipine 10 MG TAB PER TUBE SCH (07:56)
[2020-05-26] MEDS: Budesonide 0.5 MG/2 ML NEB NEB SCH ×2 (07:56→19:40)
[2020-05-26] MEDS: Ezetimibe 10 MG TAB PO SCH (07:57)
[2020-05-26] MEDS: Multivitamin W/ Minerals 1 TAB PO SCH (07:57)
[2020-05-26] MEDS: rOPINIRole HCl 1 MG TAB PO SCH ×3 (07:57→21:56)
[2020-05-26] MEDS: Pantoprazole 40 MG GRANULES PACKET PO SCH (07:57)
[2020-05-26] MEDS: GUAIFENESIN SF SOLN 200 MG/10 ML UDCUP PO SCH ×2 (07:59→21:55)
--- NOTE | 2020-05-26 09:22 | PRG ---
DATE OF SERVICE: 05/26/2020 SUBJECTIVE: The patient remained stable off mechanical ventilation on a trach collar. She is on minimal FIO2 OBJECTIVE: VITAL SIGNS: Temperature 99.6, pulse rate 76, blood pressure 165/81, her O2 sats are 100%. HEENT: Unremarkable. NECK: Trach in good position. Minimal secretions. LUNGS: Clear. Cardiac: S1 and S2. Regular. ABDOMEN: Obese, soft, and nontender. EXTREMITIES: Trace edema throughout. LABORATORY DATA: No new labs were done. Blood sugars look adequate. ASSESSMENT: 1. COVID-19 pneumonia-resolved. 2. Acute respiratory failure requiring mechanical ventilation-patient has been weaned off the vent. PLAN: Moved to LTAC as soon as possible for rehab. No other recommendations at this time. Job ID: [id number]
[2020-05-26] MEDS: busPIRone HCl 5 MG TAB PER TUBE SCH (13:13)
[2020-05-26] MEDS: Dexamethasone 4 mg/ml Vial SLOW IVP SCH (14:41)
[2020-05-26] MEDS: busPIRone HCl 10 MG TAB PER TUBE SCH ×2 (15:29→21:54)
[2020-05-26] MEDS: Atorvastatin Calcium 20 MG TAB PO SCH (21:54)
[2020-05-26] MEDS: Zinc Sulfate 220 MG CAP PO SCH (21:54)
[2020-05-27] MEDS: Acetaminophen 650 MG/20.3 ML UDCUP PER TUBE SCH ×4 (06:18→22:29)
[2020-05-27] MEDS: Levothyroxine Sodium 125 MCG TAB PER TUBE SCH (06:23)
[2020-05-27] MEDS: Scopolamine 1.5 mg/72 hour Patch TOP SCH (06:23)
[2020-05-27] MEDS: Budesonide 0.5 MG/2 ML NEB NEB SCH ×2 (07:25→19:39)
[2020-05-27] MEDS: Aspirin 325 MG TAB PO SCH (08:03)
[2020-05-27] MEDS: Amlodipine 10 MG TAB PER TUBE SCH (08:04)
[2020-05-27] MEDS: hydrALAZINE 25 MG TAB PER TUBE SCH ×3 (08:05→22:24)
[2020-05-27] MEDS: GUAIFENESIN SF SOLN 200 MG/10 ML UDCUP PO SCH ×2 (08:05→22:23)
[2020-05-27] MEDS: rOPINIRole HCl 1 MG TAB PO SCH ×3 (08:06→22:25)
[2020-05-27] MEDS: Pantoprazole 40 MG GRANULES PACKET PO SCH (08:06)
[2020-05-27] MEDS: Labetalol 100 MG TAB PO SCH ×2 (08:06→22:24)
[2020-05-27] MEDS: Multivitamin W/ Minerals 1 TAB PO SCH (08:06)
[2020-05-27] MEDS: Potassium Bicarbonate/Cit Ac 20 MEQ TAB PER TUBE SCH ×2 (08:06→22:25)
[2020-05-27] MEDS: Ezetimibe 10 MG TAB PO SCH (08:06)
[2020-05-27] MEDS: busPIRone HCl 10 MG TAB PER TUBE SCH ×3 (08:07→22:23)
--- NOTE | 2020-05-27 08:42 | PRG ---
DATE OF SERVICE: 05/27/2020 SUBJECTIVE: The patient is lying in bed, looks fairly comfortable. Still has tracheostomy in place. OBJECTIVE: VITAL SIGNS: Temperature 98.1, pulse 78, and blood pressure 170/89. HEENT: Unremarkable. NECK: Trach in good position. LUNGS: Clear. CARDIAC: S1 and S2. Regular. ABDOMEN: Soft, obese. PEG tube noted. EXTREMITIES: No edema. LABORATORY DATA: No labs were done today. ASSESSMENT: 1. Status post COVID-19 pneumonia. 2. Acute respiratory failure, resolved. PLAN: Needs to move to LTAC for rehabilitation measures. Job ID: [id number]
[2020-05-27] MEDS ORDERED: Vecuronium 10 MG VIAL ONE (18:18)
[2020-05-27] MEDS ORDERED: Fentanyl 100 MCG/2 ML VIAL ONE (18:32)
[2020-05-27] MEDS ORDERED: Midazolam HCl 5 mg/5 ml Vial ONE (18:37)
[2020-05-27] MEDS ORDERED: Midazolam HCl 2 mg/2 ml Vial ONE (18:37)
[2020-05-27] MEDS ORDERED: Ventilator Sedation Protocol 1 EACH FS SCH (19:04)
[2020-05-27] MEDS ORDERED: Vecuronium 10 MG VIAL IVP PRN (19:05)
[2020-05-27] MEDS ORDERED: Propofol 1,000 MG/100 ML VIAL IV ONE (19:14)
[2020-05-27] MEDS ORDERED: Propofol BOLUS 1,000 MG/100 ML VIAL IV PRN (19:30)
[2020-05-27] MEDS ORDERED: Lorazepam 2 MG/ML VIAL SLOW IVP PRN (19:30)
[2020-05-27] MEDS ORDERED: Morphine 2 MG/ML VIAL SLOW IVP PRN (19:30)
[2020-05-27] MEDS ORDERED: DISCONTINUE PREVIOUS NARCOTIC PAIN MEDICATIONS AND BENZODIAZEPINES FS SCH (19:30)
[2020-05-27] MEDS ORDERED: Propofol 1,000 MG/100 ML VIAL IV PRN (19:30)
[2020-05-27] MEDS ORDERED: Fentanyl CADD 100 ML IV SCH (19:30)
[2020-05-27] MEDS ORDERED: Fentanyl BOLUS 250 ML IVPB PRN (19:30)
[2020-05-27] MEDS ORDERED: Midazolam HCl 2 mg/2 ml Vial IVP SCH (20:00)
[2020-05-27] MEDS ORDERED: EPINEPHrine 1 MG/ML AMP IVP SCH (20:00)
[2020-05-27] MEDS ORDERED: Fentanyl 100 MCG/2 ML VIAL SLOW IVP SCH (20:00)
[2020-05-27 20:24] LABS: Actual Bicarbonate (HCO3a) 24.4 mEq/L (22-28); Base Excess (BEa) 0.5 mEq/L (-2.0 to +3.0); CO2 Tension 36.2 mmHg (35.0-45.0); Calcium, Ionized (arterial) 1.22 mmol/L (1.12-1.30); Carboxyhemoglobin (COHb) 0.3 gm% (0.0-3.0); Hemoglobin (Hb) 9.5 g/dL (12.0-16.0); O2 Tension (PaO2), arterial 125.3 mmHg (> 70.0); pH, Arterial 7.45 (7.35-7.45)
[2020-05-27 20:36] LABS: Puncture Site RRA
[2020-05-27 22:18] LABS: #Basophils 0.1 thou/uL (0.0-0.2); #Eosinphils 0.3 thou/uL (0.0-0.7); #Lymphocytes 3.3 thou/uL (1.20-3.40); #Monocytes 0.8 thou/uL (0.11-0.59); #Neutrophils 11.5 thou/uL (1.40-6.50); %Basophils 0.3 % (0.0-1.0); %Eosinophils 1.6 % (0.0-10.0); %Lymphocytes 20.9 % (21.0-51.0); %Monocytes 4.8 % (0.0-10.0); %Neutrophils 72.4 % (42.0-75.0); Mean Corpuscular HGB CONC 32.3 g/dL (32.0-36.0); Mean Corpuscular Hemoglobin 29.3 pg (27.0-31.0); Mean Corpuscular Volume 90.8 fL (78.0-98.0); Mean Platelet Volume 8.5 fL (7.4-10.4); Platelet Count 302 thou/uL (130-400); RBC Distribution Width 16.2 % (11.5-14.5); Red Blood Cell (RBC) Count 3.06 mill/uL (4.20-5.40); White Blood Cell (WBC) Count 15.9 thou/uL (4.8-10.8)
[2020-05-27] MEDS: Atorvastatin Calcium 20 MG TAB PO SCH (22:22)
[2020-05-27] MEDS: Zinc Sulfate 220 MG CAP PO SCH (22:31)
[2020-05-28] MEDS: Acetaminophen 650 MG/20.3 ML UDCUP PER TUBE SCH ×3 (01:46→12:58)
[2020-05-28] MEDS: Levothyroxine Sodium 125 MCG TAB PER TUBE SCH (05:13)
[2020-05-28] MEDS: Budesonide 0.5 MG/2 ML NEB NEB SCH (06:26)
[2020-05-28 06:29] VITALS: BP 167/85
[2020-05-28] MEDS: GUAIFENESIN SF SOLN 200 MG/10 ML UDCUP PO SCH (07:40)
[2020-05-28] MEDS: hydrALAZINE 25 MG TAB PER TUBE SCH ×2 (07:41→15:43)
[2020-05-28] MEDS: Potassium Bicarbonate/Cit Ac 20 MEQ TAB PER TUBE SCH (07:41)
[2020-05-28] MEDS: Ezetimibe 10 MG TAB PO SCH (07:42)
[2020-05-28] MEDS: Multivitamin W/ Minerals 1 TAB PO SCH (07:42)
[2020-05-28] MEDS: Pantoprazole 40 MG GRANULES PACKET PO SCH (07:42)
[2020-05-28] MEDS: Labetalol 100 MG TAB PO SCH (07:42)
[2020-05-28] MEDS: rOPINIRole HCl 1 MG TAB PO SCH ×2 (07:42→15:40)
[2020-05-28] MEDS: busPIRone HCl 10 MG TAB PER TUBE SCH ×2 (07:42→15:43)
[2020-05-28] MEDS: Amlodipine 10 MG TAB PER TUBE SCH (07:42)
--- NOTE | 2020-05-28 10:27 | RAD ---
PORTABLE CHEST: HISTORY: Followup pneumonia. COMPARISON: 05/24/2020 exam. FINDINGS: Right-sided central line is unchanged in position. The patient is rotated on this exam. Heart size is enlarged. Parenchymal lung changes are similar to the prior study. IMPRESSION: Stable exam. POS: LYNNE
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
[2020-05-28 14:56] VITALS: TEMP 99.1
[2020-05-29] MEDS ORDERED: Rocuronium Bromide 10 MG/ML (10ML VIAL) ONE (10:37)
--- NOTE | 2020-05-29 16:58 | OP ---
DATE OF PROCEDURE: 05/27/2020 PREOPERATIVE DIAGNOSES: Respiratory failure, tracheostomy and PEG tube [address] Ryan, bleeding from her tracheostomy site during trach care, uncooperative. POSTOPERATIVE DIAGNOSES: Respiratory failure, tracheostomy and PEG tube [address] Ryan, bleeding from her tracheostomy site during trach care, uncooperative. PROCEDURES PERFORMED: Removal of tracheostomy with anesthesia, intubating the patient orally, control of bleeding, soft tissue neck over the right side of the trachea site with a Vicryl suture. FloSeal and Surgicel used. ANESTHESIA: Sedation, paralytic. DESCRIPTION OF PROCEDURE: The patient at bedside in ICU, I was called urgently for arterial bleeding around her trach. The ER crew was present trying to intubate her with GlideScope, having some difficulty. CESAR Tao successfully intubated her as I withdrew her tracheostomy tube and advanced the endotracheal tube beyond the tracheostomy site. I then removed sutures from the right lateral neck to improve exposure. Using surgical retraction and Weitlaner, there was arterial bleeding near the right side of the tracheostomy. Control of this with cautery was unsuccessful. A 4-0 Vicryl was placed controlling this, plus a new tracheostomy tube applied after endotracheal tube removed and FloSeal placed in the problematic area covered by Surgicel. Sterile dressings applied as a new tracheostomy appliance secured with 3-0 Prolene suture. Job ID: [id number]
== END 2020-05-28 18:30 | DRG 3 ==
LOC: ERS 05:35 → ERHOLD 07:41 → 2SE 15:09 → IMCU/EMU 04-28 13:36
PROVIDERS: ADMIT Specialist; ATTEND Internal Medicine
PROC: 8E0ZXY6 Isolation (ICD-10-PCS; 2020-04-27)
PROC: 5A1955Z Respiratory Ventilation, Greater than 96 Consecutive Hours (ICD-10-PCS; 2020-04-28)
PROC: 0BH17EZ Insertion of Endotracheal Airway into Trachea, Via Natural or Artificial Opening (ICD-10-PCS; 2020-04-28)
PROC: XW13325 Transfusion of Convalescent Plasma (Nonautologous) into Peripheral Vein, Percutaneous Approach, New Technology Group 5 (ICD-10-PCS; 2020-04-28)
PROC: 0B9D7ZX Drainage of Right Middle Lung Lobe, Via Natural or Artificial Opening, Diagnostic (ICD-10-PCS; 2020-05-07)
PROC: 0B110F4 Bypass Trachea to Cutaneous with Tracheostomy Device, Open Approach (ICD-10-PCS; principal; 2020-05-19)
PROC: 0DH63UZ Insertion of Feeding Device into Stomach, Percutaneous Approach (ICD-10-PCS; 2020-05-19)
PROC: 02HV33Z Insertion of Infusion Device into Superior Vena Cava, Percutaneous Approach (ICD-10-PCS; 2020-05-19)
PROC: 0W363ZZ Control Bleeding in Neck, Percutaneous Approach (ICD-10-PCS; 2020-05-27)
PROC: 0B21XFZ Change Tracheostomy Device in Trachea, External Approach (ICD-10-PCS; 2020-05-27)
PROC: 30233N1 Transfusion of Nonautologous Red Blood Cells into Peripheral Vein, Percutaneous Approach (ICD-10-PCS; 2020-05-27)
DX: U07.1 COVID-19 (principal); J12.82 Pneumonia due to coronavirus disease 2019; J96.01 Acute respiratory failure with hypoxia; G92 Toxic encephalopathy; J44.0 Chronic obstructive pulmonary disease with (acute) lower respiratory infection; F05 Delirium due to known physiological condition; Z68.43 Body mass index [BMI] 50.0-59.9, adult; R04.2 Hemoptysis; D62 Acute posthemorrhagic anemia; E87.0 Hyperosmolality and hypernatremia; N17.9 Acute kidney failure, unspecified; M19.90 Unspecified osteoarthritis, unspecified site; E66.01 Morbid (severe) obesity due to excess calories; I25.10 Atherosclerotic heart disease of native coronary artery without angina pectoris; E03.9 Hypothyroidism, unspecified; K21.9 Gastro-esophageal reflux disease without esophagitis; F32.9 Major depressive disorder, single episode, unspecified; F41.0 Panic disorder [episodic paroxysmal anxiety]; I12.9 Hypertensive chronic kidney disease with stage 1 through stage 4 chronic kidney disease, or unspecified chronic kidney disease; E11.22 Type 2 diabetes mellitus with diabetic chronic kidney disease; N18.2 Chronic kidney disease, stage 2 (mild); F03.90 Unspecified dementia, unspecified severity, without behavioral disturbance, psychotic disturbance, mood disturbance, and anxiety; E83.42 Hypomagnesemia; E87.6 Hypokalemia; Z86.73 Personal history of transient ischemic attack (TIA), and cerebral infarction without residual deficits; Z86.718 Personal history of other venous thrombosis and embolism; Z90.49 Acquired absence of other specified parts of digestive tract; Z98.51 Tubal ligation status; Z87.891 Personal history of nicotine dependence; Z88.1 Allergy status to other antibiotic agents; Z88.8 Allergy status to other drugs, medicaments and biological substances; Z79.899 Other long term (current) drug therapy; Z79.890 Hormone replacement therapy; Z88.0 Allergy status to penicillin; Z79.82 Long term (current) use of aspirin; Z83.3 Family history of diabetes mellitus; Z82.49 Family history of ischemic heart disease and other diseases of the circulatory system
CPT/HCPCS: 36415; 36416; 36430; 36600; 51701; 71045; 71250; 80048; 80053; 81003; 81015; 82533; 82553; 82805; 83605; 83735; 83880; 84100; 84443; 84484; 85007; 85025; 85027; 85379; 86140; 86850; 86900; 86901; 87040; 87070; 87077; 87086; 87186; 87205; 88305; 88312; 93005; 94002; 94003; 94640; 94660; 94760; 96374; 96375; C1751; J0171; J0360; J0456; J0696; J1100; J1265; J1644; J1650; J1815; J1940; J2001; J2060; J2250; J2270; J2704; J2930; J3010; J3475; J3486; J3490; J7050; J7070; J7620; J7626; P9016; P9017; S0020; U0002

== ENCOUNTER 2020-08-02 14:04 | Inpatient (IN) | payer MEDICARE, MEDICAID ==
[2020-08-02 15:10] LABS: #Basophils 0.1 thou/uL (0.0-0.2); #Eosinphils 0.4 thou/uL (0.0-0.7); #Lymphocytes 3.6 thou/uL (1.20-3.40); #Monocytes 0.8 thou/uL (0.11-0.59); #Neutrophils 11.1 thou/uL (1.40-6.50); %Basophils 0.5 % (0.0-1.0); %Eosinophils 2.6 % (0.0-10.0); %Lymphocytes 22.8 % (21.0-51.0); %Monocytes 4.8 % (0.0-10.0); %Neutrophils 69.3 % (42.0-75.0); Hemoglobin 9.8 g/dL (12.0-16.0); Mean Corpuscular HGB CONC 31.7 g/dL (32.0-36.0); Mean Corpuscular Volume 88.4 fL (78.0-98.0); Mean Platelet Volume 9.9 fL (7.4-10.4); Platelet Count 277 thou/uL (130-400); RBC Distribution Width 16.8 % (11.5-14.5); Red Blood Cell (RBC) Count 3.48 mill/uL (4.20-5.40); White Blood Cell (WBC) Count 15.9 thou/uL (4.8-10.8)
[2020-08-02] MEDS ORDERED: Ondansetron PF 4 MG/2 ML Vial ONE (16:19)
[2020-08-02] MEDS ORDERED: Morphine 4 MG/ML VIAL ONE (16:19)
[2020-08-02 16:42] LABS: Bacteria/HPF None Seen HPF (None Seen); Bilirubin Negative (Negative); Blood, Urine Negative (Negative); Clarity Clear (Clear); Glucose, Urine (Dipstick) Normal (Negative); Ketone, Urine Negative (Negative); Leukocyte Negative Leu/uL (Negative); Nitrite Negative (Negative); Protein, Urine (Dipstick) 70 mg/dL (Neg-Trace); RBC/HPF 0-3 HPF (0-3); Specific Gravity, Urine 1.029 (1.002-1.036); Squamous Epithelial None Seen HPF (0-3); WBC/HPF 0-3 HPF (0-3); pH, Urine 5.5 (5.0-9.0)
[2020-08-02] MEDS ORDERED: Ondansetron PF 4 MG/2 ML Vial IVP PRN (17:00)
[2020-08-02] MEDS ORDERED: Ondansetron ODT 4 MG TAB SL PRN (17:00)
[2020-08-02] MEDS ORDERED: Acetaminophen 325 MG TAB PO PRN (17:00)
[2020-08-02] MEDS ORDERED: HYDROcodone/Acetaminophen 5/325 mg Tablet PO PRN (17:00)
[2020-08-02 17:10] LABS: ALT (SGPT) 8 U/L (8-55); AST (SGOT) 13 U/L (5-34); Albumin 3.8 g/dL (3.4-4.8); Alkaline Phosphatase 75 U/L (40-110); Anion Gap 14 mmol/L (10-20); BUN (Urea Nitrogen) 15 mg/dL (9.8-20.1); Bilirubin, Total 0.4 mg/dL (0.2-1.2); Calc. Creatinine Clearance 0 mL/min (70-130); Calcium 9.6 mg/dL (7.8-10.44); Carbon Dioxide 24 mmol/L (23-31); Chloride 103 mmol/L (98-107); Globulin 3.9 g/dL (2.4-3.5); Glucose 129 mg/dL (83-110); Lipase 14 U/L (8-78); Potassium 3.4 mmol/L (3.5-5.1); Protein, Total 7.7 g/dL (5.8-8.1); Sodium 138 mmol/L (136-145)
[2020-08-02 21:40] VITALS: BMI 49.3
[2020-08-03 07:38] LABS: SARS-CoV-2 PCR by NAA Not Detected (NotDetected)
[2020-08-03] MEDS: Gabapentin 100 MG CAP PO SCH ×3 (10:00→21:12)
[2020-08-03] MEDS: busPIRone HCl 10 MG TAB PO SCH ×3 (10:00→21:11)
[2020-08-03] MEDS: Clopidogrel Bisulfate 75 MG TAB PO SCH (10:00)
[2020-08-03] MEDS: CeleCOXIB 100 MG CAP PO SCH (10:00)
[2020-08-03] MEDS: Furosemide 40 MG TAB PO SCH (10:00)
[2020-08-03] MEDS: Allopurinol 300 MG TAB PO SCH (10:00)
[2020-08-03] MEDS: NIFEdipine XL 30 MG TAB PO SCH ×2 (10:00→21:11)
[2020-08-03] MEDS: Ezetimibe 10 MG TAB PO SCH (21:11)
[2020-08-03] MEDS: Atorvastatin Calcium 20 MG TAB PO SCH (21:11)
[2020-08-03] MEDS: HYDROcodone/Acetaminophen 5/325 mg Tablet PO PRN (21:12)
[2020-08-04] MEDS: Levothyroxine 150 MCG TAB PO SCH (04:57)
[2020-08-04 06:56] LABS: #Eosinphils 0.4 thou/uL (0.0-0.7); #Lymphocytes 2.7 thou/uL (1.20-3.40); #Monocytes 0.7 thou/uL (0.11-0.59); %Basophils 0.4 % (0.0-1.0); %Eosinophils 3.7 % (0.0-10.0); %Lymphocytes 27.6 % (21.0-51.0); %Monocytes 7.3 % (0.0-10.0); Mean Corpuscular HGB CONC 31.5 g/dL (32.0-36.0); Mean Corpuscular Hemoglobin 27.9 pg (27.0-31.0); Mean Corpuscular Volume 88.6 fL (78.0-98.0); Mean Platelet Volume 9.8 fL (7.4-10.4); Platelet Count 249 thou/uL (130-400); RBC Distribution Width 16.1 % (11.5-14.5); Red Blood Cell (RBC) Count 3.59 mill/uL (4.20-5.40); White Blood Cell (WBC) Count 9.9 thou/uL (4.8-10.8)
[2020-08-04 07:13] LABS: Anion Gap 17 mmol/L (10-20); BUN (Urea Nitrogen) 13 mg/dL (9.8-20.1); Calc. Creatinine Clearance 102 mL/min (70-130); Carbon Dioxide 24 mmol/L (23-31); Chloride 103 mmol/L (98-107); Glucose 93 mg/dL (83-110); Potassium 3.5 mmol/L (3.5-5.1); Sodium 140 mmol/L (136-145); Uric Acid 3.2 mg/dL (2.6-6.0)
[2020-08-04 07:38] LABS: Hemoglobin A1c 4.9 % (4.0-6.0)
[2020-08-04] MEDS: HYDROcodone/Acetaminophen 5/325 mg Tablet PO PRN ×2 (08:24→21:31)
[2020-08-04] MEDS: CeleCOXIB 100 MG CAP PO SCH (08:25)
[2020-08-04] MEDS: NIFEdipine XL 30 MG TAB PO SCH ×2 (08:25→21:32)
[2020-08-04] MEDS: Clopidogrel Bisulfate 75 MG TAB PO SCH (08:26)
[2020-08-04] MEDS: busPIRone HCl 10 MG TAB PO SCH ×3 (08:26→21:30)
[2020-08-04] MEDS: Allopurinol 300 MG TAB PO SCH (08:26)
[2020-08-04] MEDS: Gabapentin 100 MG CAP PO SCH ×3 (08:26→21:31)
[2020-08-04] MEDS: Furosemide 40 MG TAB PO SCH (08:27)
[2020-08-04] MEDS: Atorvastatin Calcium 20 MG TAB PO SCH (21:29)
[2020-08-04] MEDS: Ezetimibe 10 MG TAB PO SCH (21:30)
[2020-08-05] MEDS: Levothyroxine 150 MCG TAB PO SCH (05:27)
[2020-08-05 06:29] LABS: #Basophils 0.1 thou/uL (0.0-0.2); #Eosinphils 0.3 thou/uL (0.0-0.7); #Monocytes 0.5 thou/uL (0.11-0.59); #Neutrophils 5.5 thou/uL (1.40-6.50); %Basophils 0.8 % (0.0-1.0); %Eosinophils 3.7 % (0.0-10.0); %Lymphocytes 31.9 % (21.0-51.0); %Monocytes 5.7 % (0.0-10.0); %Neutrophils 57.9 % (42.0-75.0); Hemoglobin 10.1 g/dL (12.0-16.0); Mean Corpuscular HGB CONC 31.3 g/dL (32.0-36.0); Mean Corpuscular Hemoglobin 27.5 pg (27.0-31.0); Mean Platelet Volume 9.8 fL (7.4-10.4); Platelet Count 275 thou/uL (130-400); RBC Distribution Width 16.3 % (11.5-14.5); Red Blood Cell (RBC) Count 3.66 mill/uL (4.20-5.40); White Blood Cell (WBC) Count 9.5 thou/uL (4.8-10.8)
[2020-08-05] MEDS: CeleCOXIB 100 MG CAP PO SCH (08:02)
[2020-08-05] MEDS: Clopidogrel Bisulfate 75 MG TAB PO SCH (08:03)
[2020-08-05] MEDS: Allopurinol 300 MG TAB PO SCH (08:03)
[2020-08-05] MEDS: busPIRone HCl 10 MG TAB PO SCH ×3 (08:03→20:50)
[2020-08-05] MEDS: NIFEdipine XL 30 MG TAB PO SCH ×2 (08:03→20:51)
[2020-08-05] MEDS: Gabapentin 100 MG CAP PO SCH ×3 (08:03→20:50)
[2020-08-05] MEDS: Furosemide 40 MG TAB PO SCH (08:04)
[2020-08-05] MEDS: Ezetimibe 10 MG TAB PO SCH (20:50)
[2020-08-05] MEDS: Atorvastatin Calcium 20 MG TAB PO SCH (20:50)
[2020-08-05] MEDS: HYDROcodone/Acetaminophen 5/325 mg Tablet PO PRN (20:51)
[2020-08-06] MEDS: Levothyroxine 150 MCG TAB PO SCH (05:36)
[2020-08-06 07:18] VITALS: BP 152/88; TEMP 98
[2020-08-06] MEDS: NIFEdipine XL 30 MG TAB PO SCH (08:07)
[2020-08-06] MEDS: CeleCOXIB 100 MG CAP PO SCH (08:07)
[2020-08-06] MEDS: Clopidogrel Bisulfate 75 MG TAB PO SCH (08:07)
[2020-08-06] MEDS: Furosemide 40 MG TAB PO SCH (08:08)
[2020-08-06] MEDS: Gabapentin 100 MG CAP PO SCH (08:08)
[2020-08-06] MEDS: busPIRone HCl 10 MG TAB PO SCH (08:09)
[2020-08-06] MEDS: Allopurinol 300 MG TAB PO SCH (08:09)
== END 2020-08-06 15:15 | disposition home health service (06) | DRG 552 ==
LOC: ERS 14:04 → T4-B 17:16
PROVIDERS: ADMIT Specialist; ATTEND Specialist
DX: S32.10XA Unspecified fracture of sacrum, initial encounter for closed fracture (principal); Z68.42 Body mass index [BMI] 45.0-49.9, adult; Z20.822 Contact with and (suspected) exposure to COVID-19; E66.01 Morbid (severe) obesity due to excess calories; J44.9 Chronic obstructive pulmonary disease, unspecified; I25.10 Atherosclerotic heart disease of native coronary artery without angina pectoris; E03.9 Hypothyroidism, unspecified; K21.9 Gastro-esophageal reflux disease without esophagitis; I10 Essential (primary) hypertension; M19.90 Unspecified osteoarthritis, unspecified site; N32.81 Overactive bladder; H91.10 Presbycusis, unspecified ear; F32.9 Major depressive disorder, single episode, unspecified; F40.00 Agoraphobia, unspecified; F41.9 Anxiety disorder, unspecified; M48.061 Spinal stenosis, lumbar region without neurogenic claudication; W17.89XA Other fall from one level to another, initial encounter; Z98.51 Tubal ligation status; Z28.21 Immunization not carried out because of patient refusal; Z86.16 Personal history of COVID-19; Z79.899 Other long term (current) drug therapy; Z79.890 Hormone replacement therapy; Z79.82 Long term (current) use of aspirin; Z79.02 Long term (current) use of antithrombotics/antiplatelets; Z88.0 Allergy status to penicillin; Z88.8 Allergy status to other drugs, medicaments and biological substances; Z82.49 Family history of ischemic heart disease and other diseases of the circulatory system; Z83.3 Family history of diabetes mellitus; Z90.49 Acquired absence of other specified parts of digestive tract; Z95.828 Presence of other vascular implants and grafts; Z98.890 Other specified postprocedural states; Z86.73 Personal history of transient ischemic attack (TIA), and cerebral infarction without residual deficits; Z86.718 Personal history of other venous thrombosis and embolism; Z86.19 Personal history of other infectious and parasitic diseases; Z87.891 Personal history of nicotine dependence
CPT/HCPCS: 36415; 51701; 71045; 72125; 72128; 72131; 72170; 80048; 80053; 81003; 81015; 83036; 83690; 83880; 84443; 84484; 84550; 85025; 87635; 93005; 96374; 96375; J2270; J2405; U0003; U0005

== ENCOUNTER 2020-10-22 12:39 | Inpatient (IN) | payer MEDICARE, MEDICAID ==
[~2020-10-22 12:39] MED LIST: Iopamidol-370 76% 500 ML 1 ML ONE
[2020-10-22 13:58] LABS: Hemoglobin 12.5 g/dL (12.0-16.0); Mean Corpuscular Hemoglobin 27.7 pg (27.0-31.0); Mean Corpuscular Volume 86.8 fL (78.0-98.0); Mean Platelet Volume 10.7 fL (7.4-10.4); Platelet Count 247 thou/uL (130-400); RBC Distribution Width 18.7 % (11.5-14.5); Red Blood Cell (RBC) Count 4.49 mill/uL (4.20-5.40)
[2020-10-22 14:18] LABS: Anisocytosis SLIGHT = 6-15 cells (100X) (0-5/hpf); Band 1 % (5-11); Eosinophils 5 % (0-10); Lymphocytes 41 % (21-51); MDiff Complete? YES; Monocytes 4 % (0-10); Neutrophil 47 % (42-75); Platelet Morphology Comment Appears Adequate; Polychromasia SLIGHT = 2-3 cells (100X) (0-2/hpf); Reactive Lymphocytes 2 % (0-10); Schistocytes SLIGHT = 2-5 cells (100X) (0-1/hpf); White Blood Cell (WBC) Count 14.8 thou/uL (4.8-10.8)
[2020-10-22 14:35] LABS: Albumin 4.2 g/dL (3.4-4.8)
[2020-10-22 14:37] LABS: Chloride 102 mmol/L (98-107); Sodium 135 mmol/L (136-145)
[2020-10-22 14:38] LABS: Globulin 4.4 g/dL (2.4-3.5); Glucose 116 mg/dL (83-110); Protein, Total 8.6 g/dL (5.8-8.1)
[2020-10-22 14:39] LABS: Anion Gap 19 mmol/L (10-20); Carbon Dioxide 19 mmol/L (23-31)
[2020-10-22 14:40] LABS: Bilirubin, Total 0.5 mg/dL (0.2-1.2)
[2020-10-22 14:41] LABS: Alkaline Phosphatase 74 U/L (40-110); Calc. Creatinine Clearance 0 mL/min (70-130)
[2020-10-22 14:42] LABS: BUN (Urea Nitrogen) 14 mg/dL (9.8-20.1)
[2020-10-22 14:43] LABS: AST (SGOT) 27 U/L (5-34)
[2020-10-22 14:44] LABS: ALT (SGPT) 12 U/L (8-55)
[2020-10-22 14:58] LABS: Bacteria/HPF None Seen HPF (None Seen); Bilirubin Negative (Negative); Blood, Urine 1+ (Negative); Clarity Clear (Clear); Glucose, Urine (Dipstick) Normal (Negative); Ketone, Urine Negative (Negative); Leukocyte Negative Leu/uL (Negative); Nitrite Negative (Negative); Protein, Urine (Dipstick) 100 mg/dL (Neg-Trace); Specific Gravity, Urine 1.025 (1.002-1.036); Squamous Epithelial 0-3 HPF (0-3); WBC/HPF 0-3 HPF (0-3)
[2020-10-22] MEDS ORDERED: Haloperidol Lactate 5 MG/ML VIAL ONE (15:00)
[2020-10-22] MEDS ORDERED: Cefepime 2 GM VIAL ONE (15:48)
[2020-10-22] MEDS ORDERED: Vancomycin HCl 2.5 GM in Sodium Chloride 0.9% 500 ML IVPB SCH (17:15)
[2020-10-22] MEDS ORDERED: Promethazine HCl 25 MG/ML VIAL IM PRN (20:06)
[2020-10-22] MEDS ORDERED: Ondansetron PF 4 MG/2 ML Vial IVP PRN (20:15)
[2020-10-22] MEDS ORDERED: Ondansetron ODT 4 MG TAB SL PRN (20:15)
[2020-10-22] MEDS ORDERED: Acetaminophen 325 MG TAB PO PRN (20:15)
[2020-10-22 20:54] VITALS: BMI 39.9
[2020-10-22] MEDS: Enoxaparin Sodium 120 MG/0.8 ML SYRINGE SC SCH (22:00)
[2020-10-22] MEDS: Haloperidol Lactate 5 MG/ML VIAL IM PRN (23:57)
[2020-10-23 06:03] LABS: #Basophils 0.1 thou/uL (0.0-0.2); #Eosinphils 0.5 thou/uL (0.0-0.7); #Lymphocytes 3.1 thou/uL (1.20-3.40); #Monocytes 0.5 thou/uL (0.11-0.59); #Neutrophils 5.4 thou/uL (1.40-6.50); %Basophils 0.8 % (0.0-1.0); %Eosinophils 5.1 % (0.0-10.0); %Lymphocytes 32.3 % (21.0-51.0); %Monocytes 4.8 % (0.0-10.0); Hemoglobin 10.3 g/dL (12.0-16.0); Mean Corpuscular HGB CONC 30.5 g/dL (32.0-36.0); Mean Corpuscular Hemoglobin 26.1 pg (27.0-31.0); Mean Corpuscular Volume 85.6 fL (78.0-98.0); Mean Platelet Volume 10.6 fL (7.4-10.4); Platelet Count 242 thou/uL (130-400); RBC Distribution Width 18.5 % (11.5-14.5); Red Blood Cell (RBC) Count 3.96 mill/uL (4.20-5.40); White Blood Cell (WBC) Count 9.5 thou/uL (4.8-10.8)
[2020-10-23 06:27] LABS: Anion Gap 13 mmol/L (10-20); BUN (Urea Nitrogen) 11 mg/dL (9.8-20.1); Calc. Creatinine Clearance 82 mL/min (70-130); Calcium 9.8 mg/dL (7.8-10.44); Carbon Dioxide 21 mmol/L (23-31); Chloride 106 mmol/L (98-107); Glucose 94 mg/dL (83-110); Potassium 3.9 mmol/L (3.5-5.1); Sodium 136 mmol/L (136-145)
[2020-10-23] MEDS ORDERED: Potassium Chloride 20 MEQ TAB PO PRN (08:29)
[2020-10-23] MEDS ORDERED: Docusate 100 MG CAP PO PRN (08:36)
[2020-10-23] MEDS ORDERED: Furosemide 40 MG TAB PO PRN (08:37)
[2020-10-23] MEDS ORDERED: Haloperidol 1 MG TAB PO PRN (08:38)
[2020-10-23] MEDS: Polyethylene Glycol 3350 17 GM Packet PO SCH (09:00)
[2020-10-23] MEDS: Acetaminophen 325 MG TAB PO SCH ×4 (10:00→21:58)
[2020-10-23] MEDS: CeleCOXIB 100 MG CAP PO SCH ×2 (10:23→21:58)
[2020-10-23] MEDS: Loratadine 10 MG TAB PO SCH (10:24)
[2020-10-23] MEDS: Clopidogrel Bisulfate 75 MG TAB PO SCH (10:24)
[2020-10-23] MEDS: busPIRone HCl 5 MG TAB PO SCH ×3 (10:25→21:57)
[2020-10-23] MEDS: Dextrose 5 %-0.45 % NaCl 1,000 ML IV SCH ×3 (10:33→18:22)
[2020-10-23] MEDS: Enoxaparin Sodium 120 MG/0.8 ML SYRINGE SC SCH ×2 (11:05→21:58)
[2020-10-23] MEDS ORDERED: Furosemide 40 MG/4 ML VIAL SLOW IVP SCH ×2 (13:00→21:45)
[2020-10-23 14:41] LABS: SARS-CoV-2 PCR by NAA Not Detected (NotDetected)
[2020-10-23] MEDS: Haloperidol Lactate 5 MG/ML VIAL IM PRN (15:19)
[2020-10-23] MEDS: cefTRIAXone\\ROCEPHIN 2 GM in Sodium Chloride 0.9% 100 ML IVPB SCH (15:59)
[2020-10-23] MEDS: ALPRAZolam 0.5 MG TAB PO PRN (18:04)
[2020-10-23] MEDS: Mometasone 200 MCG/Formoterol 5 MCG 120 PUFF INHALER INH SCH (18:29)
[2020-10-23] MEDS ORDERED: Ziprasidone 20 MG VIAL IM PRN (20:14)
[2020-10-23] MEDS ORDERED: Sterile Water 10 ML VIAL FS PRN (20:15)
[2020-10-23] MEDS ORDERED: Fluconazole In NaCl,Iso-Osm 100 MG in Admixture Fee 1 EACH IVPB SCH (22:00)
[2020-10-23] MEDS: Fluconazole In NaCl,Iso-Osm 100 MG in Admixture Fee 1 EACH IVPB SCH (23:38)
[2020-10-24] MEDS: ALPRAZolam 0.5 MG TAB PO PRN (02:32)
[2020-10-24] MEDS: Levothyroxine 150 MCG TAB PO SCH (07:18)
[2020-10-24] MEDS: Mometasone 200 MCG/Formoterol 5 MCG 120 PUFF INHALER INH SCH (07:45)
[2020-10-24] MEDS: Lorazepam 2 MG/ML VIAL SLOW IVP PRN (08:05)
[2020-10-24 08:23] LABS: #Basophils 0.1 thou/uL (0.0-0.2); #Eosinphils 0.6 thou/uL (0.0-0.7); #Lymphocytes 3.3 thou/uL (1.20-3.40); #Monocytes 0.6 thou/uL (0.11-0.59); #Neutrophils 6.1 thou/uL (1.40-6.50); %Basophils 0.6 % (0.0-1.0); %Eosinophils 5.7 % (0.0-10.0); %Lymphocytes 30.7 % (21.0-51.0); %Monocytes 5.7 % (0.0-10.0); %Neutrophils 57.2 % (42.0-75.0); Hemoglobin 10.3 g/dL (12.0-16.0); Mean Corpuscular HGB CONC 32.3 g/dL (32.0-36.0); Mean Corpuscular Hemoglobin 27.6 pg (27.0-31.0); Mean Corpuscular Volume 85.5 fL (78.0-98.0); Mean Platelet Volume 10.8 fL (7.4-10.4); Platelet Count 230 thou/uL (130-400); RBC Distribution Width 18.2 % (11.5-14.5); Red Blood Cell (RBC) Count 3.73 mill/uL (4.20-5.40); White Blood Cell (WBC) Count 10.7 thou/uL (4.8-10.8)
[2020-10-24 08:30] LABS: Hemoglobin A1c 4.9 % (4.0-6.0)
[2020-10-24 08:44] LABS: Anion Gap 13 mmol/L (10-20); BUN (Urea Nitrogen) 11 mg/dL (9.8-20.1); Calc. Creatinine Clearance 81 mL/min (70-130); Calcium 8.5 mg/dL (7.8-10.44); Carbon Dioxide 22 mmol/L (23-31); Chloride 105 mmol/L (98-107); Glucose 122 mg/dL (83-110); Potassium 4.1 mmol/L (3.5-5.1); Sodium 136 mmol/L (136-145)
[2020-10-24] MEDS: Buprenorphine 8mg/Naloxone 2mg per 1 FILM SL SCH (09:57)
[2020-10-24] MEDS ORDERED: Iopamidol-370 76% 500 ML 1 ML ONE (10:48)
[2020-10-24] MEDS ORDERED: Ondansetron PF 4 MG/2 ML Vial IVP PRN (11:36)
[2020-10-24] MEDS: Dextrose 5 %-0.45 % NaCl 1,000 ML IV SCH ×3 (12:37→21:30)
[2020-10-24] MEDS: Acetaminophen 325 MG TAB PO SCH ×4 (12:37→21:23)
[2020-10-24] MEDS: CeleCOXIB 100 MG CAP PO SCH ×2 (12:38→21:23)
[2020-10-24] MEDS: busPIRone HCl 5 MG TAB PO SCH ×3 (12:38→21:23)
[2020-10-24] MEDS: Loratadine 10 MG TAB PO SCH (12:39)
[2020-10-24] MEDS: Senokot S 8.6-50 MG TAB PO SCH (12:39)
[2020-10-24] MEDS: Polyethylene Glycol 3350 17 GM Packet PO SCH (12:39)
[2020-10-24] MEDS: Multivit, Therapeutic 1 TAB PO SCH (12:39)
[2020-10-24] MEDS: Clopidogrel Bisulfate 75 MG TAB PO SCH (12:39)
[2020-10-24] MEDS: cefTRIAXone\\ROCEPHIN 2 GM in Sodium Chloride 0.9% 100 ML IVPB SCH (16:43)
[2020-10-24] MEDS: Fluconazole In NaCl,Iso-Osm 100 MG in Admixture Fee 1 EACH IVPB SCH (22:38)
[2020-10-25] MEDS: Lorazepam 2 MG/ML VIAL SLOW IVP PRN ×2 (01:08→15:49)
[2020-10-25] MEDS: Mometasone 200 MCG/Formoterol 5 MCG 120 PUFF INHALER INH SCH ×3 (01:20→18:42)
[2020-10-25] MEDS: Levothyroxine 150 MCG TAB PO SCH (06:25)
[2020-10-25] MEDS: Clopidogrel Bisulfate 75 MG TAB PO SCH (09:35)
[2020-10-25] MEDS: Multivit, Therapeutic 1 TAB PO SCH (09:36)
[2020-10-25] MEDS: Loratadine 10 MG TAB PO SCH (09:36)
[2020-10-25] MEDS: busPIRone HCl 5 MG TAB PO SCH ×3 (09:36→21:46)
[2020-10-25] MEDS: CeleCOXIB 100 MG CAP PO SCH ×2 (09:37→21:45)
[2020-10-25] MEDS: Acetaminophen 325 MG TAB PO SCH ×4 (09:38→21:46)
[2020-10-25] MEDS: Polyethylene Glycol 3350 17 GM Packet PO SCH (09:44)
[2020-10-25] MEDS: Dextrose 5 %-0.45 % NaCl 1,000 ML IV SCH ×3 (09:59→23:35)
[2020-10-25] MEDS: Buprenorphine 8mg/Naloxone 2mg per 1 FILM SL SCH (11:06)
[2020-10-25] MEDS: cefTRIAXone\\ROCEPHIN 2 GM in Sodium Chloride 0.9% 100 ML IVPB SCH (15:49)
[2020-10-25] MEDS: Haloperidol Lactate 5 MG/ML VIAL SLOW IVP PRN (21:46)
[2020-10-25] MEDS: Fluconazole In NaCl,Iso-Osm 100 MG in Admixture Fee 1 EACH IVPB SCH (21:50)
[2020-10-26] MEDS: Levothyroxine 150 MCG TAB PO SCH (06:48)
[2020-10-26] MEDS: Mometasone 200 MCG/Formoterol 5 MCG 120 PUFF INHALER INH SCH ×2 (07:46→18:51)
[2020-10-26] MEDS ORDERED: cloNIDine 0.1 MG TAB PO SCH (09:15)
[2020-10-26] MEDS ORDERED: busPIRone HCl 10 MG TAB PO SCH (09:15)
[2020-10-26] MEDS: busPIRone HCl 5 MG TAB PO SCH (10:02)
[2020-10-26] MEDS: Dextrose 5 %-0.45 % NaCl 1,000 ML IV SCH ×2 (10:12→16:09)
[2020-10-26] MEDS: Acetaminophen 325 MG TAB PO SCH ×4 (10:12→20:34)
[2020-10-26] MEDS: Loratadine 10 MG TAB PO SCH (10:14)
[2020-10-26] MEDS: Buprenorphine 8mg/Naloxone 2mg per 1 FILM SL SCH (10:14)
[2020-10-26] MEDS: CeleCOXIB 100 MG CAP PO SCH ×2 (10:14→20:29)
[2020-10-26] MEDS: Clopidogrel Bisulfate 75 MG TAB PO SCH (10:14)
[2020-10-26] MEDS: Multivit, Therapeutic 1 TAB PO SCH (10:14)
[2020-10-26] MEDS: Polyethylene Glycol 3350 17 GM Packet PO SCH (10:15)
[2020-10-26] MEDS: Senokot S 8.6-50 MG TAB PO SCH (10:15)
[2020-10-26 14:04] LABS: #Basophils 0.1 thou/uL (0.0-0.2); #Eosinphils 0.5 thou/uL (0.0-0.7); #Lymphocytes 3.2 thou/uL (1.20-3.40); #Monocytes 0.8 thou/uL (0.11-0.59); #Neutrophils 10.9 thou/uL (1.40-6.50); %Basophils 0.6 % (0.0-1.0); %Eosinophils 3.5 % (0.0-10.0); %Lymphocytes 20.8 % (21.0-51.0); %Neutrophils 70.2 % (42.0-75.0); Hemoglobin 11.2 g/dL (12.0-16.0); Mean Corpuscular Hemoglobin 27.6 pg (27.0-31.0); Mean Platelet Volume 11.3 fL (7.4-10.4); Platelet Count 218 thou/uL (130-400); Red Blood Cell (RBC) Count 4.06 mill/uL (4.20-5.40); White Blood Cell (WBC) Count 15.6 thou/uL (4.8-10.8)
[2020-10-26] MEDS: busPIRone HCl 10 MG TAB PO SCH ×2 (14:32→20:29)
[2020-10-26 14:33] LABS: Anion Gap 18 mmol/L (10-20); BUN (Urea Nitrogen) 24 mg/dL (9.8-20.1); Calc. Creatinine Clearance 50 mL/min (70-130); Carbon Dioxide 19 mmol/L (23-31); Chloride 103 mmol/L (98-107); Glucose 129 mg/dL (83-110); Potassium 3.8 mmol/L (3.5-5.1); Sodium 136 mmol/L (136-145)
[2020-10-26] MEDS: cloNIDine 0.1 MG TAB PO PRN (14:47)
[2020-10-26] MEDS: Haloperidol Lactate 5 MG/ML VIAL SLOW IVP PRN (15:39)
[2020-10-26] MEDS: cefTRIAXone\\ROCEPHIN 2 GM in Sodium Chloride 0.9% 100 ML IVPB SCH (15:45)
[2020-10-26] MEDS: cloNIDine 0.1 MG TAB PO SCH (20:28)
[2020-10-26] MEDS: ALPRAZolam 0.5 MG TAB PO PRN (20:28)
[2020-10-26] MEDS: Fluconazole In NaCl,Iso-Osm 100 MG in Admixture Fee 1 EACH IVPB SCH (21:49)
[2020-10-26] MEDS ORDERED: hydrALAZINE 25 MG TAB PO SCH (22:15)
[2020-10-27] MEDS: Dextrose 5 %-0.45 % NaCl 1,000 ML IV SCH ×4 (00:59→21:30)
[2020-10-27] MEDS: cloNIDine 0.1 MG TAB PO PRN (06:00)
[2020-10-27 06:19] LABS: #Basophils 0.1 thou/uL (0.0-0.2); #Eosinphils 0.9 thou/uL (0.0-0.7); #Lymphocytes 3.7 thou/uL (1.20-3.40); #Monocytes 0.7 thou/uL (0.11-0.59); #Neutrophils 6.4 thou/uL (1.40-6.50); %Basophils 0.8 % (0.0-1.0); %Eosinophils 7.5 % (0.0-10.0); %Lymphocytes 31.7 % (21.0-51.0); %Monocytes 5.8 % (0.0-10.0); %Neutrophils 54.2 % (42.0-75.0); Hemoglobin 9.7 g/dL (12.0-16.0); Mean Corpuscular HGB CONC 31.6 g/dL (32.0-36.0); Mean Corpuscular Hemoglobin 27.5 pg (27.0-31.0); Mean Corpuscular Volume 87.2 fL (78.0-98.0); Mean Platelet Volume 11.4 fL (7.4-10.4); Platelet Count 199 thou/uL (130-400); Red Blood Cell (RBC) Count 3.54 mill/uL (4.20-5.40); White Blood Cell (WBC) Count 11.7 thou/uL (4.8-10.8)
[2020-10-27] MEDS: Levothyroxine 150 MCG TAB PO SCH (06:20)
[2020-10-27 06:53] LABS: Anion Gap 13 mmol/L (10-20); BUN (Urea Nitrogen) 26 mg/dL (9.8-20.1); Calc. Creatinine Clearance 60 mL/min (70-130); Calcium 9.4 mg/dL (7.8-10.44); Carbon Dioxide 25 mmol/L (23-31); Chloride 101 mmol/L (98-107); Glucose 137 mg/dL (83-110); Potassium 3.6 mmol/L (3.5-5.1); Sodium 135 mmol/L (136-145)
[2020-10-27] MEDS: Mometasone 200 MCG/Formoterol 5 MCG 120 PUFF INHALER INH SCH ×2 (07:02→18:32)
[2020-10-27] MEDS: Haloperidol Lactate 5 MG/ML VIAL SLOW IVP PRN ×2 (09:42→13:43)
[2020-10-27] MEDS: Polyethylene Glycol 3350 17 GM Packet PO SCH (09:50)
[2020-10-27] MEDS: busPIRone HCl 10 MG TAB PO SCH ×3 (09:55→19:47)
[2020-10-27] MEDS: Multivit, Therapeutic 1 TAB PO SCH (09:55)
[2020-10-27] MEDS: Clopidogrel Bisulfate 75 MG TAB PO SCH (09:55)
[2020-10-27] MEDS: hydrALAZINE 25 MG TAB PO SCH ×3 (09:55→19:48)
[2020-10-27] MEDS: Amlodipine 10 MG TAB PO SCH (09:55)
[2020-10-27] MEDS: Loratadine 10 MG TAB PO SCH (09:55)
[2020-10-27] MEDS: cloNIDine 0.1 MG TAB PO SCH ×2 (09:55→19:47)
[2020-10-27] MEDS: Acetaminophen 325 MG TAB PO SCH ×4 (09:59→19:47)
[2020-10-27] MEDS: Lorazepam 2 MG/ML VIAL SLOW IVP PRN (15:11)
[2020-10-27] MEDS: Fluconazole In NaCl,Iso-Osm 100 MG in Admixture Fee 1 EACH IVPB SCH (21:21)
[2020-10-27] MEDS: ALPRAZolam 0.5 MG TAB PO PRN (23:19)
[2020-10-28] MEDS: Levothyroxine 150 MCG TAB PO SCH (05:46)
[2020-10-28 06:09] LABS: #Basophils 0.1 thou/uL (0.0-0.2); #Eosinphils 0.7 thou/uL (0.0-0.7); #Lymphocytes 3.7 thou/uL (1.20-3.40); #Monocytes 0.6 thou/uL (0.11-0.59); #Neutrophils 5.8 thou/uL (1.40-6.50); %Basophils 0.6 % (0.0-1.0); %Eosinophils 6.7 % (0.0-10.0); %Lymphocytes 34.1 % (21.0-51.0); %Monocytes 5.4 % (0.0-10.0); %Neutrophils 53.2 % (42.0-75.0); Hemoglobin 9.4 g/dL (12.0-16.0); Mean Corpuscular Volume 87.3 fL (78.0-98.0); Mean Platelet Volume 11.2 fL (7.4-10.4); Platelet Count 195 thou/uL (130-400); RBC Distribution Width 17.7 % (11.5-14.5); Red Blood Cell (RBC) Count 3.34 mill/uL (4.20-5.40); White Blood Cell (WBC) Count 10.9 thou/uL (4.8-10.8)
[2020-10-28] MEDS ORDERED: Acetaminophen 325 MG TAB ONE (06:14)
[2020-10-28] MEDS: Acetaminophen 325 MG TAB PO SCH (06:15)
[2020-10-28] MEDS: cloNIDine 0.1 MG TAB PO PRN (06:21)
[2020-10-28 06:27] LABS: Anion Gap 11 mmol/L (10-20); BUN (Urea Nitrogen) 29 mg/dL (9.8-20.1); Calc. Creatinine Clearance 74 mL/min (70-130); Calcium 9.4 mg/dL (7.8-10.44); Carbon Dioxide 28 mmol/L (23-31); Chloride 100 mmol/L (98-107); Glucose 103 mg/dL (83-110); Potassium 4.3 mmol/L (3.5-5.1); Sodium 135 mmol/L (136-145)
[2020-10-28] MEDS: Mometasone 200 MCG/Formoterol 5 MCG 120 PUFF INHALER INH SCH (07:00)
[2020-10-28] MEDS: Dextrose 5 %-0.45 % NaCl 1,000 ML IV SCH (10:25)
[2020-10-28] MEDS: Amlodipine 10 MG TAB PO SCH (10:29)
[2020-10-28] MEDS: cloNIDine 0.1 MG TAB PO SCH (10:29)
[2020-10-28] MEDS: busPIRone HCl 10 MG TAB PO SCH (10:29)
[2020-10-28] MEDS: Multivit, Therapeutic 1 TAB PO SCH (10:30)
[2020-10-28] MEDS: Clopidogrel Bisulfate 75 MG TAB PO SCH (10:31)
[2020-10-28] MEDS: Loratadine 10 MG TAB PO SCH (10:31)
[2020-10-28] MEDS: hydrALAZINE 25 MG TAB PO SCH (10:31)
[2020-10-28] MEDS: ALPRAZolam 0.5 MG TAB PO PRN (10:39)
[2020-10-28] MEDS: Senokot S 8.6-50 MG TAB PO SCH (11:32)
[2020-10-28] MEDS: Polyethylene Glycol 3350 17 GM Packet PO SCH (11:32)
[2020-10-28 12:08] VITALS: BP 124/73; TEMP 97.9
== END 2020-10-28 12:45 | disposition home or self-care (01) | DRG 871 ==
LOC: ERS 12:39 → T4-A 18:18
PROVIDERS: ADMIT Specialist; ATTEND Specialist
PROC: 06HY33Z Insertion of Infusion Device into Lower Vein, Percutaneous Approach (ICD-10-PCS; principal; 2020-10-22)
DX: A41.9 Sepsis, unspecified organism (principal); G93.41 Metabolic encephalopathy; Z20.822 Contact with and (suspected) exposure to COVID-19; Z66 Do not resuscitate; L03.221 Cellulitis of neck; N17.9 Acute kidney failure, unspecified; F32.9 Major depressive disorder, single episode, unspecified; G47.33 Obstructive sleep apnea (adult) (pediatric); M17.0 Bilateral primary osteoarthritis of knee; G30.9 Alzheimer's disease, unspecified; F02.80 Dementia in other diseases classified elsewhere, unspecified severity, without behavioral disturbance, psychotic disturbance, mood disturbance, and anxiety; E86.0 Dehydration; I25.10 Atherosclerotic heart disease of native coronary artery without angina pectoris; E03.9 Hypothyroidism, unspecified; I10 Essential (primary) hypertension; E66.01 Morbid (severe) obesity due to excess calories; J44.9 Chronic obstructive pulmonary disease, unspecified; H91.90 Unspecified hearing loss, unspecified ear; F40.00 Agoraphobia, unspecified; F41.9 Anxiety disorder, unspecified; N30.21 Other chronic cystitis with hematuria; H91.10 Presbycusis, unspecified ear; B00.9 Herpesviral infection, unspecified; Z90.49 Acquired absence of other specified parts of digestive tract; Z98.51 Tubal ligation status; Z87.891 Personal history of nicotine dependence; Z88.1 Allergy status to other antibiotic agents; Z88.0 Allergy status to penicillin; Z88.8 Allergy status to other drugs, medicaments and biological substances; Z79.01 Long term (current) use of anticoagulants; Z79.899 Other long term (current) drug therapy; Z86.16 Personal history of COVID-19; Z87.440 Personal history of urinary (tract) infections; Z91.19 Patient's noncompliance with other medical treatment and regimen; Z82.49 Family history of ischemic heart disease and other diseases of the circulatory system; Z83.3 Family history of diabetes mellitus; Z93.0 Tracheostomy status; Z86.73 Personal history of transient ischemic attack (TIA), and cerebral infarction without residual deficits; Z68.39 Body mass index [BMI] 39.0-39.9, adult; Z86.718 Personal history of other venous thrombosis and embolism; I25.2 Old myocardial infarction; Z93.1 Gastrostomy status; Z91.81 History of falling; Z78.1 Physical restraint status
CPT/HCPCS: 36415; 36556; 70450; 70470; 70551; 71045; 74177; 80048; 80053; 81003; 81015; 82274; 83036; 83880; 84443; 84484; 85025; 87040; 87086; 87324; 87449; 93005; 94664; 95712; 95819; 95957; 96365; 96367; 96375; J0692; J0696; J1450; J1630; J1650; J1940; J2060; J2405; J3370; J3486; J3490; J7030; Q9967; U0003; U0005

== ENCOUNTER 2021-04-06 15:11 | Outpatient (CLI) | payer MEDICARE, MEDICAID | END 2021-04-06 15:12 | disposition home or self-care (01) | LOC: BICULT 15:11 | PROVIDERS: ATTEND Urology | DX: N28.1 Cyst of kidney, acquired (principal) | CPT/HCPCS: 76770 ==

== ENCOUNTER 2021-12-28 12:50 | Outpatient (CLI) | payer MEDICARE, MEDICAID, OTHER | END 2021-12-28 12:51 | disposition home or self-care (01) | LOC: BICRAD 12:50 | PROVIDERS: ATTEND Specialist | DX: M79.89 Other specified soft tissue disorders (principal); M79.662 Pain in left lower leg ==

== ENCOUNTER 2022-03-08 13:07 | Emergency (ER) | payer OTHER ==
[2022-03-08 14:37] LABS: #Eosinphils 0.4 thou/uL (0.0-0.7); #Lymphocytes 3.4 thou/uL (1.20-3.40); #Monocytes 0.6 thou/uL (0.11-0.59); #Neutrophils 6.8 thou/uL (1.40-6.50); %Basophils 0.4 % (0.0-1.0); %Eosinophils 3.3 % (0.0-10.0); %Lymphocytes 30.2 % (21.0-51.0); %Monocytes 5.6 % (0.0-10.0); %Neutrophils 60.6 % (42.0-75.0); Hemoglobin 12.9 g/dL (12.0-16.0); Mean Corpuscular HGB CONC 32.9 g/dL (32.0-36.0); Mean Corpuscular Hemoglobin 29.1 pg (27.0-31.0); Mean Corpuscular Volume 88.4 fl (78.0-98.0); Mean Platelet Volume 9.7 fL (7.4-10.4); Platelet Count 194 10x3/uL (130-400); Red Blood Cell (RBC) Count 4.44 mill/uL (4.20-5.40); White Blood Cell (WBC) Count 11.3 10x3/uL (4.8-10.8)
[2022-03-08 14:47] LABS: Bacteria/HPF None Seen HPF (None Seen); Bilirubin Negative (Negative); Blood, Urine Negative (Negative); Clarity Clear (Clear); Glucose, Urine (Dipstick) Normal (Negative); Ketone, Urine Negative (Negative); Leukocyte Negative Leu/uL (Negative); Nitrite Negative (Negative); Protein, Urine (Dipstick) 70 mg/dL (Neg-Trace); RBC/HPF 0-3 HPF (0-3); Specific Gravity, Urine 1.019 (1.002-1.036); Squamous Epithelial None Seen HPF (0-3); Urobilinogen Normal mg/dL (Less than 2); WBC/HPF 0-3 HPF (0-3); pH, Urine 6.5 (5.0-9.0)
[2022-03-08 14:55] LABS: Anion Gap 11 mmol/L (10-20); BUN (Urea Nitrogen) 10 mg/dL (9.8-20.1); Calc. Creatinine Clearance 0 mL/min (70-130); Carbon Dioxide 28 mmol/L (23-31); Chloride 103 mmol/L (98-107); Potassium 3.4 mmol/L (3.5-5.1); Sodium 139 mmol/L (136-145)
[2022-03-08 14:56] LABS: ALT (SGPT) 25 U/L (8-55); AST (SGOT) 26 U/L (5-34); Alkaline Phosphatase 82 U/L (40-110); Bilirubin, Total 0.5 mg/dL (0.2-1.2); Calcium 9.7 mg/dL (7.8-10.44); Estimated GFR 51; Globulin 3.6 g/dL (2.4-3.5); Glucose 116 mg/dL (83-110); Protein, Total 7.6 g/dL (5.8-8.1)
== END 2022-03-08 16:18 | disposition home or self-care (01) ==
LOC: ERS 13:07
DX: J06.9 Acute upper respiratory infection, unspecified (principal); R30.0 Dysuria; E03.9 Hypothyroidism, unspecified; I10 Essential (primary) hypertension; E66.9 Obesity, unspecified; J44.9 Chronic obstructive pulmonary disease, unspecified; Z87.891 Personal history of nicotine dependence
CPT/HCPCS: 36415; 51701; 71045; 80053; 81003; 81015; 84484; 85025; 87086

== ENCOUNTER 2024-02-17 12:22 | Emergency (ER) | payer OTHER ==
[~2024-02-17 12:22] MED LIST changes: -Iopamidol-370 76% 500 ML 1 ML ONE; +Iopamidol-370 76% 500 ML MDV (1 ML CHARGE) ONE
[2024-02-17 14:52] LABS: #Basophils 0.03 10x3/uL (0.0-0.2); %Basophils 0.3 % (0.0-1.0); %Eosinophils 2.2 % (0.0-10.0); %Lymphocytes 26.8 % (21.0-51.0); %Monocytes 6.7 % (0.0-10.0); %Neutrophils 63.6 % (42.0-75.0); Hemoglobin 11.6 g/dL (12.0-16.0); Mean Corpuscular HGB CONC 31.4 g/dL (32.0-36.0); Mean Corpuscular Hemoglobin 28.7 pg (27.0-31.0); Mean Corpuscular Volume 91.6 fL (78.0-98.0); Mean Platelet Volume 11.1 fL (7.4-10.4); Platelet Count 180 10x3/uL (130-400); RBC Distribution Width 14.6 % (11.5-14.5); Red Blood Cell (RBC) Count 4.04 mill/uL (4.20-5.40)
[2024-02-17 15:12] LABS: ALT (SGPT) 16 U/L (8-55); AST (SGOT) 20 U/L (5-34); Albumin 3.5 g/dL (3.4-4.8); Alkaline Phosphatase 53 U/L (40-110); Anion Gap 13 mmol/L (10-20); BUN (Urea Nitrogen) 18 mg/dL (9.8-20.1); Bilirubin, Total 0.3 mg/dL (0.2-1.2); Calc. Creatinine Clearance 0 mL/min (70-130); Calcium 9.7 mg/dL (7.8-10.44); Carbon Dioxide 30 mmol/L (23-31); Chloride 104 mmol/L (98-107); Estimated GFR 38; Globulin 3.7 g/dL (2.4-3.5); Glucose 113 mg/dL (83-110); Potassium 3.7 mmol/L (3.5-5.1); Protein, Total 7.2 g/dL (5.8-8.1); Sodium 143 mmol/L (136-145)
[2024-02-17] MEDS ORDERED: Furosemide 20 MG (2 mL) VIAL ONE (18:14)
== END 2024-02-17 18:48 | disposition home or self-care (01) ==
LOC: ERS 12:22
DX: I70.90 Unspecified atherosclerosis (principal); I25.10 Atherosclerotic heart disease of native coronary artery without angina pectoris; J44.9 Chronic obstructive pulmonary disease, unspecified; I11.0 Hypertensive heart disease with heart failure; I50.9 Heart failure, unspecified; Z87.891 Personal history of nicotine dependence
CPT/HCPCS: 73630; 75635; 80053; 83605; 83880; 85025; J1940; 36415; 96374

== ENCOUNTER 2024-12-07 14:46 | Inpatient (IN) | payer OTHER, MEDICAID ==
[2024-12-07 17:41] LABS: #Basophils 0.05 10x3/uL (0.0-0.2); #Eosinophils 0.11 10x3/uL (0.0-0.7); #Monocytes 1.17 10x3/uL (0.11-0.59); #Neutrophils 12.59 10x3/uL (1.40-6.50); %Basophils 0.3 % (0.0-1.0); %Eosinophils 0.7 % (0.0-10.0); %Lymphocytes 17.2 % (21.0-51.0); %Monocytes 6.9 % (0.0-10.0); %Neutrophils 74.4 % (42.0-75.0); Hematocrit 43.2 % (36.0-47.0); Hemoglobin 13.5 g/dL (12.0-16.0); Mean Corpuscular Hemoglobin 27.7 pg (27.0-31.0); Mean Corpuscular Volume 88.5 fL (78.0-98.0); Platelet Count 212 10x3/uL (130-400); Red Blood Cell (RBC) Count 4.88 mill/uL (4.20-5.40); White Blood Cell (WBC) Count 16.90 10x3/uL (4.8-10.8)
[2024-12-07 17:44] LABS: Bacteria/HPF None Seen HPF (None Seen); CAUTI Indications for Culture < 2yrs of age; Glucose, Urine (Dipstick) Normal (Negative); Leukocyte Negative Leu/uL (Negative); Protein, Urine (Dipstick) 100 mg/dL (Neg-Trace); RBC/HPF 0-3 HPF (0-3); Specific Gravity, Urine 1.028 (1.002-1.036); WBC/HPF 0-3 HPF (0-3)
[2024-12-07 17:45] LABS: Urine Culture Reflex Yes Yes
[2024-12-07 17:58] LABS: INR-International Normal Ratio 1.0; Prothrombin Time 13.3 sec (12.0-14.7)
[2024-12-07 17:59] LABS: ALT (SGPT) 19 U/L (Less than 34); AST (SGOT) 36 U/L (11-34); Albumin 3.5 g/dL (3.1-4.5); Alkaline Phosphatase 60 U/L (40-110); Anion Gap 17 mmol/L (10-20); BUN (Urea Nitrogen) 18 mg/dL (9.8-20.1); Bilirubin, Total 0.7 mg/dL (0.3-1.2); Calc. Creatinine Clearance 0 mL/min (70-130); Calcium 9.5 mg/dL (7.8-10.44); Carbon Dioxide 19 mmol/L (23-31); Chloride 107 mmol/L (98-107); Globulin 4.5 g/dL (2.4-3.5); Glucose 109 mg/dL (83-110); PTT 32.8 sec (22.9-36.1); Potassium 4.0 mmol/L (3.5-5.1); Sodium 139 mmol/L (136-145)
[2024-12-07] MEDS ORDERED: Azithromycin 500 MG VIAL ONE (18:39)
[2024-12-07] MEDS ORDERED: cefTRIAXone (ROCEPHIN) 2 GM VIAL ONE (18:39)
[2024-12-07] MEDS ORDERED: hydrALAZINE 20 MG/ML VIAL ONE (20:04)
[2024-12-07] MEDS ORDERED: Droperidol 5 MG/2 ML VIAL ONE (20:24)
[2024-12-07] MEDS: diphenhydrAMINE 50 MG/ML VIAL IVP SCH (22:19)
[2024-12-07 22:42] VITALS: BMI 40.1
[2024-12-08 05:59] LABS: #Basophils 0.05 10x3/uL (0.0-0.2); #Eosinophils 0.10 10x3/uL (0.0-0.7); #Monocytes 1.12 10x3/uL (0.11-0.59); #Neutrophils 11.67 10x3/uL (1.40-6.50); %Basophils 0.3 % (0.0-1.0); %Eosinophils 0.6 % (0.0-10.0); %Lymphocytes 20.3 % (21.0-51.0); %Monocytes 6.9 % (0.0-10.0); %Neutrophils 71.5 % (42.0-75.0); Hematocrit 43.6 % (36.0-47.0); Hemoglobin 14.6 g/dL (12.0-16.0); Mean Corpuscular Hemoglobin 28.2 pg (27.0-31.0); Mean Corpuscular Volume 84.2 fL (78.0-98.0); Platelet Count 206 10x3/uL (130-400); Red Blood Cell (RBC) Count 5.18 mill/uL (4.20-5.40); White Blood Cell (WBC) Count 16.31 10x3/uL (4.8-10.8)
[2024-12-08 06:15] LABS: ALT (SGPT) 19 U/L (Less than 34); AST (SGOT) 33 U/L (11-34); Albumin 3.6 g/dL (3.1-4.5); Alkaline Phosphatase 64 U/L (40-110); Anion Gap 17 mmol/L (10-20); BUN (Urea Nitrogen) 21 mg/dL (9.8-20.1); Bilirubin, Total 0.7 mg/dL (0.3-1.2); Calc. Creatinine Clearance 68 mL/min (70-130); Calcium 10.1 mg/dL (7.8-10.44); Carbon Dioxide 20 mmol/L (23-31); Chloride 107 mmol/L (98-107); Globulin 4.8 g/dL (2.4-3.5); Glucose 108 mg/dL (83-110); Potassium 4.2 mmol/L (3.5-5.1); Sodium 140 mmol/L (136-145)
[2024-12-08] MEDS: Levothyroxine 150 MCG TAB PO SCH (06:26)
[2024-12-08 06:33] LABS: Actual Bicarbonate (HCO3v) 20.0 mEq/L (22-28); Base Excess -1.4 mEq/L (-2.0 to +3.0); Calcium, Ionized (venous) 1.00 mmol/L (1.16-1.32); Chloride (VBG) 106 mmol/L (98-106); Hematocrit-VBG 48 % (36.0-47.0); Hemoglobin (Hb) 16.2 g/dL (11.7-16.1); Potassium (VBG) 4.33 mmol/L (3.70-5.30); Sodium 141 mmol/L (133-146)
[2024-12-08] MEDS: Enoxaparin 40 MG (0.4 mL) SYRINGE SC SCH (09:51)
[2024-12-08 14:49] LABS: Cocaine Metabolite Screen Negative (Negative); THC/Cannabinoid Screen Negative (Negative); Tricyclic Screen Negative (Negative)
[2024-12-08] MEDS: cefTRIAXone\\ROCEPHIN 2 GM in Sodium Chloride 0.9% 100 ML IVPB SCH (14:58)
[2024-12-08 15:35] VITALS: BMI 40.1
[2024-12-08] MEDS: Mometasone 200 MCG/Formoterol 5 MCG 120 PUFF INHALER INH SCH (18:27)
[2024-12-08 20:11] LABS: Syphilis Antibody Index 0.26 S/CO (<1.00 Non-Reactive)
[2024-12-08] MEDS: Rosuvastatin 20 MG TAB PO SCH (20:40)
[2024-12-08] MEDS: cloNIDine 0.1 MG TAB PO SCH (20:40)
[2024-12-08] MEDS: QUEtiapine 25 MG TAB PO SCH (20:41)
[2024-12-09 07:26] LABS: Anion Gap 15 mmol/L (10-20); BUN (Urea Nitrogen) 27 mg/dL (9.8-20.1); Calc. Creatinine Clearance 61 mL/min (70-130); Calcium 9.5 mg/dL (7.8-10.44); Carbon Dioxide 22 mmol/L (23-31); Chloride 110 mmol/L (98-107); Glucose 107 mg/dL (83-110); Potassium 3.7 mmol/L (3.5-5.1); Sodium 143 mmol/L (136-145)
[2024-12-09 07:30] LABS: #Basophils 0.07 10x3/uL (0.0-0.2); #Eosinophils 0.13 10x3/uL (0.0-0.7); #Monocytes 1.12 10x3/uL (0.11-0.59); #Neutrophils 10.83 10x3/uL (1.40-6.50); %Basophils 0.5 % (0.0-1.0); %Eosinophils 0.9 % (0.0-10.0); %Lymphocytes 20.0 % (21.0-51.0); %Monocytes 7.3 % (0.0-10.0); %Neutrophils 70.8 % (42.0-75.0); Hematocrit 41.9 % (36.0-47.0); Hemoglobin 13.3 g/dL (12.0-16.0); Mean Corpuscular Hemoglobin 27.7 pg (27.0-31.0); Mean Corpuscular Volume 87.3 fL (78.0-98.0); Platelet Count 216 10x3/uL (130-400); Red Blood Cell (RBC) Count 4.80 mill/uL (4.20-5.40); White Blood Cell (WBC) Count 15.28 10x3/uL (4.8-10.8)
[2024-12-09] MEDS: Senokot S 8.6-50 MG TAB PO SCH (08:29)
[2024-12-09] MEDS: OLANZapine 10 MG VIAL IM SCH (17:59)
[2024-12-10] MEDS: hydrALAZINE 20 MG/ML VIAL SLOW IVP PRN (00:19)
[2024-12-10 06:13] LABS: #Basophils 0.07 10x3/uL (0.0-0.2); #Eosinophils 0.15 10x3/uL (0.0-0.7); #Monocytes 1.02 10x3/uL (0.11-0.59); #Neutrophils 10.52 10x3/uL (1.40-6.50); %Basophils 0.5 % (0.0-1.0); %Eosinophils 1.0 % (0.0-10.0); %Lymphocytes 18.2 % (21.0-51.0); %Monocytes 7.0 % (0.0-10.0); %Neutrophils 72.8 % (42.0-75.0); Hematocrit 42.6 % (36.0-47.0); Hemoglobin 13.5 g/dL (12.0-16.0); Mean Corpuscular Hemoglobin 27.8 pg (27.0-31.0); Mean Corpuscular Volume 87.7 fL (78.0-98.0); Platelet Count 199 10x3/uL (130-400); Red Blood Cell (RBC) Count 4.86 mill/uL (4.20-5.40); White Blood Cell (WBC) Count 14.47 10x3/uL (4.8-10.8)
[2024-12-10 06:41] LABS: Anion Gap 13 mmol/L (10-20); BUN (Urea Nitrogen) 23 mg/dL (9.8-20.1); Calc. Creatinine Clearance 71 mL/min (70-130); Calcium 9.4 mg/dL (7.8-10.44); Carbon Dioxide 20 mmol/L (23-31); Chloride 113 mmol/L (98-107); Glucose 104 mg/dL (83-110); Potassium 3.7 mmol/L (3.5-5.1); Sodium 142 mmol/L (136-145)
[2024-12-10 11:50] LABS: Cocaine Metabolite Screen Negative (Negative); THC/Cannabinoid Screen Negative (Negative); Tricyclic Screen Negative (Negative)
[2024-12-10] MEDS: OLANZapine 10 MG VIAL IM SCH (15:34)
[2024-12-11 06:07] LABS: #Basophils 0.05 10x3/uL (0.0-0.2); #Eosinophils 0.19 10x3/uL (0.0-0.7); #Monocytes 0.90 10x3/uL (0.11-0.59); #Neutrophils 10.32 10x3/uL (1.40-6.50); %Basophils 0.4 % (0.0-1.0); %Eosinophils 1.4 % (0.0-10.0); %Lymphocytes 15.8 % (21.0-51.0); %Monocytes 6.6 % (0.0-10.0); %Neutrophils 75.4 % (42.0-75.0); Hematocrit 39.3 % (36.0-47.0); Hemoglobin 12.3 g/dL (12.0-16.0); Mean Corpuscular Hemoglobin 27.3 pg (27.0-31.0); Mean Corpuscular Volume 87.1 fL (78.0-98.0); Platelet Count 208 10x3/uL (130-400); Red Blood Cell (RBC) Count 4.51 mill/uL (4.20-5.40); White Blood Cell (WBC) Count 13.67 10x3/uL (4.8-10.8)
[2024-12-11 06:35] LABS: Anion Gap 18 mmol/L (10-20); BUN (Urea Nitrogen) 17 mg/dL (9.8-20.1); Calc. Creatinine Clearance 85 mL/min (70-130); Calcium 9.1 mg/dL (7.8-10.44); Carbon Dioxide 15 mmol/L (23-31); Chloride 113 mmol/L (98-107); Glucose 91 mg/dL (83-110); Potassium 3.9 mmol/L (3.5-5.1); Sodium 142 mmol/L (136-145)
[2024-12-12 05:42] LABS: #Basophils 0.04 10x3/uL (0.0-0.2); #Eosinophils 0.19 10x3/uL (0.0-0.7); #Monocytes 0.79 10x3/uL (0.11-0.59); #Neutrophils 9.36 10x3/uL (1.40-6.50); %Basophils 0.3 % (0.0-1.0); %Eosinophils 1.6 % (0.0-10.0); %Lymphocytes 13.2 % (21.0-51.0); %Monocytes 6.6 % (0.0-10.0); %Neutrophils 77.9 % (42.0-75.0); Hematocrit 39.3 % (36.0-47.0); Hemoglobin 12.3 g/dL (12.0-16.0); Mean Corpuscular Hemoglobin 27.9 pg (27.0-31.0); Mean Corpuscular Volume 89.1 fL (78.0-98.0); Platelet Count 195 10x3/uL (130-400); Red Blood Cell (RBC) Count 4.41 mill/uL (4.20-5.40); White Blood Cell (WBC) Count 12.02 10x3/uL (4.8-10.8)
[2024-12-12 06:17] LABS: Anion Gap 22 mmol/L (10-20); BUN (Urea Nitrogen) 14 mg/dL (9.8-20.1); Calc. Creatinine Clearance 92 mL/min (70-130); Calcium 9.0 mg/dL (7.8-10.44); Carbon Dioxide 17 mmol/L (23-31); Chloride 108 mmol/L (98-107); Glucose 72 mg/dL (83-110); Potassium 3.6 mmol/L (3.5-5.1); Sodium 143 mmol/L (136-145)
[2024-12-13 06:01] LABS: #Basophils 0.04 10x3/uL (0.0-0.2); #Eosinophils 0.14 10x3/uL (0.0-0.7); #Monocytes 0.76 10x3/uL (0.11-0.59); #Neutrophils 7.17 10x3/uL (1.40-6.50); %Basophils 0.4 % (0.0-1.0); %Eosinophils 1.4 % (0.0-10.0); %Lymphocytes 20.0 % (21.0-51.0); %Monocytes 7.5 % (0.0-10.0); %Neutrophils 70.4 % (42.0-75.0); Hematocrit 36.8 % (36.0-47.0); Hemoglobin 11.4 g/dL (12.0-16.0); Mean Corpuscular Hemoglobin 27.9 pg (27.0-31.0); Mean Corpuscular Volume 90.2 fL (78.0-98.0); Platelet Count 203 10x3/uL (130-400); Red Blood Cell (RBC) Count 4.08 mill/uL (4.20-5.40); White Blood Cell (WBC) Count 10.17 10x3/uL (4.8-10.8)
[2024-12-13 06:17] LABS: Anion Gap 15 mmol/L (10-20); BUN (Urea Nitrogen) 14 mg/dL (9.8-20.1); Calc. Creatinine Clearance 96 mL/min (70-130); Calcium 9.1 mg/dL (7.8-10.44); Carbon Dioxide 15 mmol/L (23-31); Chloride 113 mmol/L (98-107); Glucose 77 mg/dL (83-110); Potassium 3.9 mmol/L (3.5-5.1)
[2024-12-13 06:23] LABS: Sodium 139 mmol/L (136-145)
[2024-12-14 06:52] LABS: #Basophils 0.04 10x3/uL (0.0-0.2); #Eosinophils 0.19 10x3/uL (0.0-0.7); #Monocytes 0.69 10x3/uL (0.11-0.59); #Neutrophils 6.12 10x3/uL (1.40-6.50); %Basophils 0.4 % (0.0-1.0); %Eosinophils 2.1 % (0.0-10.0); %Lymphocytes 22.2 % (21.0-51.0); %Monocytes 7.6 % (0.0-10.0); %Neutrophils 67.5 % (42.0-75.0); Hematocrit 38.1 % (36.0-47.0); Hemoglobin 12.3 g/dL (12.0-16.0); Mean Corpuscular Hemoglobin 28.1 pg (27.0-31.0); Mean Corpuscular Volume 87.0 fL (78.0-98.0); Platelet Count 208 10x3/uL (130-400); Red Blood Cell (RBC) Count 4.38 mill/uL (4.20-5.40); White Blood Cell (WBC) Count 9.07 10x3/uL (4.8-10.8)
[2024-12-14 07:00] LABS: Anion Gap 13 mmol/L (10-20); BUN (Urea Nitrogen) 17 mg/dL (9.8-20.1); Calc. Creatinine Clearance 83 mL/min (70-130); Calcium 9.4 mg/dL (7.8-10.44); Carbon Dioxide 18 mmol/L (23-31); Chloride 115 mmol/L (98-107); Glucose 100 mg/dL (83-110); Potassium 3.8 mmol/L (3.5-5.1); Sodium 142 mmol/L (136-145)
[2024-12-15] MEDS: Pentoxifylline 400 MG ER.TAB PO SCH (12:48)
[2024-12-15] MEDS: Gabapentin 300 MG CAP PO SCH (14:53)
[2024-12-15] MEDS: Carvedilol 6.25 MG TAB PO SCH (17:37)
[2024-12-16] MEDS: Acetaminophen 325 MG TAB PO PRN (01:41)
[2024-12-16] MEDS ORDERED: Ketorolac Tromethamine 30 MG (1 mL) VIAL IVP SCH (02:00)
[2024-12-16] MEDS: HYDROcodone/Acetaminophen 5/325 mg Tablet PO SCH (02:17)
[2024-12-16] MEDS: Pantoprazole 40 MG DR.TAB PO SCH (09:05)
[2024-12-16] MEDS: Multivitamin W/ Minerals 1 TAB PO SCH (09:05)
[2024-12-16] MEDS: Mirabegron ER 25 MG ER.TAB PO SCH (09:06)
[2024-12-16] MEDS: Ferrous Gluconate 324 MG TAB PO SCH (09:06)
[2024-12-16] MEDS: HYDROcodone/Acetaminophen 5/325 mg Tablet PO PRN (17:34)
[2024-12-18 04:42] VITALS: TEMP 97.3
[2024-12-18 12:34] VITALS: BP 123/77
== END 2024-12-18 14:13 | disposition home health service (06) | DRG 91 ==
LOC: ERS 14:46 → T4-B 20:27 → OBSVTOIN 12-08 09:27
PROVIDERS: ADMIT Internal Medicine; ATTEND Internal Medicine
DX: G92.8 Other toxic encephalopathy (principal); G93.41 Metabolic encephalopathy; N39.0 Urinary tract infection, site not specified; Z68.41 Body mass index [BMI] 40.0-44.9, adult; F13.10 Sedative, hypnotic or anxiolytic abuse, uncomplicated; I12.9 Hypertensive chronic kidney disease with stage 1 through stage 4 chronic kidney disease, or unspecified chronic kidney disease; E03.9 Hypothyroidism, unspecified; K21.9 Gastro-esophageal reflux disease without esophagitis; J44.9 Chronic obstructive pulmonary disease, unspecified; I25.10 Atherosclerotic heart disease of native coronary artery without angina pectoris; N18.30 Chronic kidney disease, stage 3 unspecified; E78.5 Hyperlipidemia, unspecified; F15.10 Other stimulant abuse, uncomplicated; E66.01 Morbid (severe) obesity due to excess calories; M48.00 Spinal stenosis, site unspecified; Z86.718 Personal history of other venous thrombosis and embolism; Z86.73 Personal history of transient ischemic attack (TIA), and cerebral infarction without residual deficits; Z88.8 Allergy status to other drugs, medicaments and biological substances; Z88.1 Allergy status to other antibiotic agents; Z90.49 Acquired absence of other specified parts of digestive tract; Z98.890 Other specified postprocedural states; Z79.890 Hormone replacement therapy; Z79.899 Other long term (current) drug therapy; Z98.51 Tubal ligation status; I10 Essential (primary) hypertension; Z86.16 Personal history of COVID-19; Z95.828 Presence of other vascular implants and grafts; Z79.02 Long term (current) use of antithrombotics/antiplatelets
CPT/HCPCS: 36415; 36416; 70450; 71045; 71250; 80048; 80053; 80306; 81001; 82607; 82805; 83605; 83690; 83880; 84439; 84443; 84484; 85025; 85610; 85730; 86141; 86780; 87040; 87086; 93005; 94640; 96365; 96366; 96368; 96374; 96375; 96376; G0378; J0360; J0456; J0696; J1630; J1644; J1650; J1790; J2060; J2185; J3411; J7030; J7620; Q0162

== ENCOUNTER 2025-02-06 16:07 | Emergency (ER) | payer OTHER, MEDICAID ==
[2025-02-06 17:25] LABS: Bacteria/HPF None Seen HPF (None Seen); CAUTI Indications for Culture Dysuria,urgency,freq; Glucose, Urine (Dipstick) Normal (Negative); Leukocyte Negative Leu/uL (Negative); Protein, Urine (Dipstick) 30 mg/dL (Neg-Trace); RBC/HPF 0-3 HPF (0-3); Specific Gravity, Urine 1.027 (1.002-1.036); WBC/HPF 0-3 HPF (0-3)
[2025-02-06 17:28] LABS: Urine Culture Reflex No No
== END 2025-02-06 17:41 | disposition home or self-care (01) ==
LOC: ERS 16:07
DX: R30.0 Dysuria (principal); I25.10 Atherosclerotic heart disease of native coronary artery without angina pectoris; I10 Essential (primary) hypertension; J44.9 Chronic obstructive pulmonary disease, unspecified; Z86.73 Personal history of transient ischemic attack (TIA), and cerebral infarction without residual deficits
CPT/HCPCS: 81001; 87086; 99283

== ENCOUNTER 2025-03-29 16:05 | Emergency (ER) | payer OTHER ==
[2025-03-29 16:55] LABS: #Basophils 0.03 10x3/uL (0.0-0.2); #Eosinophils 0.06 10x3/uL (0.0-0.7); #Monocytes 0.73 10x3/uL (0.11-0.59); #Neutrophils 8.68 10x3/uL (1.40-6.50); %Basophils 0.3 % (0.0-1.0); %Eosinophils 0.6 % (0.0-10.0); %Lymphocytes 8.8 % (21.0-51.0); %Monocytes 6.9 % (0.0-10.0); %Neutrophils 82.6 % (42.0-75.0); Hematocrit 35.1 % (36.0-47.0); Hemoglobin 11.2 g/dL (12.0-16.0); Mean Corpuscular Hemoglobin 28.4 pg (27.0-31.0); Mean Corpuscular Volume 88.9 fL (78.0-98.0); Platelet Count 149 10x3/uL (130-400); Red Blood Cell (RBC) Count 3.95 mill/uL (4.20-5.40); White Blood Cell (WBC) Count 10.51 10x3/uL (4.8-10.8)
[2025-03-29 17:08] LABS: ALT (SGPT) 15 U/L (Less than 34); AST (SGOT) 24 U/L (11-34); Albumin 3.4 g/dL (3.1-4.5); Alkaline Phosphatase 62 U/L (40-110); Anion Gap 13 mmol/L (10-20); BUN (Urea Nitrogen) 18 mg/dL (9.8-20.1); Bilirubin, Total 0.2 mg/dL (0.3-1.2); Calc. Creatinine Clearance 0 mL/min (70-130); Calcium 10.4 mg/dL (7.8-10.44); Carbon Dioxide 29 mmol/L (23-31); Chloride 102 mmol/L (98-107); Globulin 3.7 g/dL (2.4-3.5); Glucose 94 mg/dL (83-110); Potassium 3.9 mmol/L (3.5-5.1); Sodium 140 mmol/L (136-145)
[2025-03-29] MEDS ORDERED: cefTRIAXone (ROCEPHIN) 1 GM VIAL ONE (17:10)
[2025-03-29] MEDS ORDERED: Oseltamivir 75 MG CAP ONE (17:22)
== END 2025-03-29 18:19 | disposition home or self-care (01) ==
LOC: ERS 16:05
DX: J10.1 Influenza due to other identified influenza virus with other respiratory manifestations (principal); I25.10 Atherosclerotic heart disease of native coronary artery without angina pectoris; I10 Essential (primary) hypertension; Z86.73 Personal history of transient ischemic attack (TIA), and cerebral infarction without residual deficits; J44.9 Chronic obstructive pulmonary disease, unspecified; Z86.718 Personal history of other venous thrombosis and embolism
CPT/HCPCS: 71045; 80053; 83605; 83880; 84484; 85025; 87428; 93005; J0696; J2919; 36415; 96374